=== PATIENT | female | born 1940 | race Caucasian/White ===

== ENCOUNTER → 2017-09-19 | Outpatient (CLI) | payer OTHER ==
[2017-09-19 13:02] LABS: BASO % 0.3 %; BASO ABS # 0.02 K/uL (0-0.2); COMPLETE YES; EOS % 1.2 %; HEMATOCRIT 46.1 % (37-47); IG% 0.4 %; LYMPH % 36.5 %; MEAN CELL VOLUME 97.9 fL (80-100); MEAN CORPUSCULAR HEMOGLOBIN 31.8 pg (25-34); MEAN CORPUSCULAR HGB CONC 32.5 g/dl (32-36); MEAN PLATELET VOLUME 12.1 fL (7.4-10.4); MONO % 9.7 %; NEUT % 51.9 %; PLATELET COUNT 192 K/uL (130-400); RED BLOOD COUNT 4.71 M/uL (4.2-5.4); WHITE BLOOD COUNT 7.39 K/uL (4.8-10.8)
[2017-09-19 13:21] LABS: URINE APPEARANCE CLEAR (CLEAR); URINE BILIRUBIN NEG (NEG); URINE COLOR YELLOW; URINE NITRITE NEG (NEG); URINE PH 5.5 (4.5-7.5); URINE SPECIFIC GRAVITY 1.018 (1.000-1.030); UROBILINOGEN NEG (NEG)
[2017-09-19 13:22] LABS: MANUAL MICROSCOPIC REQUIRED? NO; REVIEW REQ? NO
[2017-09-19 14:19] LABS: ALT/SGPT 18 U/L (12-78); AST/SGOT 23 U/L (15-37); BLOOD UREA NITROGEN 19 mg/dl (7-18); BUN/CREATININE RATIO 20.4 (10-20); CALCIUM 8.9 mg/dl (8.5-10.1); CARBON DIOXIDE 29 mmol/L (21-32); CHLORIDE 109 mmol/L (98-107); CREATININE 0.95 mg/dl (0.60-1.20); GLUCOSE 100 mg/dl (70-99); SODIUM 143 mmol/L (136-145)
[2017-09-19 14:24] LABS: ALB/GLOB RATIO 1.1 (0.9-2); ALKALINE PHOSPHATASE 64 U/L (45-117); CHOLESTEROL 146 mg/dl (0-200); CHOLESTEROL/HDL RATIO 1.9; HDL CHOLESTEROL 77 mg/dl; LDL CHOLESTEROL CALCULATED 50 mg/dl; TRIGLYCERIDES 94 mg/dl (0-150); VERY LOW DENSITY LIPOPROT CALC 19 mg/dl
== END | disposition home or self-care (01) ==
LOC: C.LABMFLN 08:25
PROVIDERS: ATTEND Family Medicine
DX: R31.0 Gross hematuria (principal); E78.5 Hyperlipidemia, unspecified; J45.909 Unspecified asthma, uncomplicated

== ENCOUNTER → 2017-09-23 | Outpatient (CLI) | payer OTHER ==
[~2017-09-23] MED LIST: OPTIRAY 320 IV PRN
--- NOTE | 2017-09-23 08:22 | DIAGNOSTIC IMAGING REPORT ---
ABD/PELVIS IV CONTRAST ONLY HISTORY: 77 years-old Female GROSS HEMATURIA acute gross hematuria. Initial exam. COMPARISON: None available TECHNIQUE: Multiple axial CT images of the abdomen and pelvis were obtained following the intravenous administration of 119 mL Optiray 320. A dose lowering technique was used consistent with the principals of SKY. FINDINGS: Mild centrilobular emphysematous changes. Minimal dependent atelectasis. Imaged inferior cardiac chambers are unremarkable. No pneumoperitoneum. The liver, spleen, pancreas and adrenal glands are within normal limits. Gallbladder is also unremarkable. No intrahepatic biliary ductal dilation. Low attenuating circumscribed lesion of the superior pole left kidney, 6 mm is too small to characterize however suggests cyst. Similar-appearing lesion of the superior pole right kidney is noted, also suggesting a cyst. Kidneys, ureters and urinary bladder are unremarkable. No hydronephrosis or renal calculi. Urinary bladder is partially collapsed. Uterus appears age-appropriate. No adnexal mass lesions. Moderate atherosclerotic plaquing of the abdominal aorta. Retroaortic left renal vein. No bulky adenopathy. There is no bowel obstruction or focal bowel wall thickening. Moderate to extensive colonic diverticulosis without diverticulitis. No evidence of acute appendicitis. Soft tissues are unremarkable. Bones are intact. Advanced intervertebral disc space narrowing at 2-L3 L4-L5 with multilevel moderate to severe facet arthropathy. The bones are mildly demineralized. Mild levoscoliosis of the lumbar spine. IMPRESSION: 1. No acute intra-abdominal or intrapelvic abnormality identified. No renal calculi or hydronephrosis. 2. Moderate to extensive colonic diverticulosis without diverticulitis. The above report was generated using voice recognition software. It may contain grammatical, syntax or spelling errors. Electronically signed by: Inocencio Gallardo M.D. 09/23/2017 8:21 AM Dictated Date/Time: 09/23/2017 8:04 AM
== END | disposition home or self-care (01) ==
LOC: C.CTS 07:39
PROVIDERS: ATTEND Family Medicine
DX: R31.0 Gross hematuria (principal); K57.30 Diverticulosis of large intestine without perforation or abscess without bleeding

== ENCOUNTER → 2017-11-14 | Outpatient (CLI) | payer OTHER | END | disposition home or self-care (01) | LOC: C.PATHSPEC 16:50 | PROVIDERS: ATTEND Urology | DX: K21.9 Gastro-esophageal reflux disease without esophagitis (principal); F41.9 Anxiety disorder, unspecified; M19.90 Unspecified osteoarthritis, unspecified site; R31.0 Gross hematuria; R92.8 Other abnormal and inconclusive findings on diagnostic imaging of breast ==

== ENCOUNTER → 2017-11-19 | Outpatient (CLI) | payer OTHER ==
[2017-11-19 13:08] LABS: MANUAL MICROSCOPIC REQUIRED? NO; REVIEW REQ? NO; URINE APPEARANCE TURBID (CLEAR); URINE BILIRUBIN NEG (NEG); URINE COLOR ORANGE; URINE NITRITE POS (NEG); URINE SPECIFIC GRAVITY 1.016 (1.000-1.030); UROBILINOGEN NEG (NEG)
== END | disposition home or self-care (01) ==
LOC: C.LABMFLN 08:56
PROVIDERS: ATTEND Family Medicine
DX: R30.0 Dysuria (principal)

== ENCOUNTER → 2018-07-02 | Day surgery (SDC) | payer OTHER ==
[2018-06-25 13:15] VITALS: Ht 165.1 cm; Wt 66.8 kg
[~2018-07-02] VITALS: Ht 165.1 cm; Wt 66.8 kg
[~2018-07-02] MED LIST changes: +500ML BSS 0.3ML EPI 1:1000PF IRRIG ONE; +ACETAMINOPHEN 325 MG TAB PO PRN; +ADVIN25/60 INH; +AMVISC PLUS 0.8ML SYRINGE INT OCU ONE; +ATROPINE SULFATE 0.1 MG/ML 5ML SYR IV PRN; +AcetaZOLAMIDE 250 MG TAB PO SCH; +BETAXOLOL HCL 0.25% OP SUSP PER DROP CHARGE OPL SCH; +BRIMONIDINE TART 0.2% OP SOLN PER DROP CHARGE ONE; +BSS FLUSH ONE; +CALC600T37 PO; +COEN1CAP7 PO; +ENDOCOAT 0.85ML SYRINGE INT OCU ONE; +EpHEDrine SULFATE INJ 50 MG/ML AMP IV PRN; +EpINEphrine INJ 1MG/ML AMP 1 MG/ML AMP ONE; +FENTANYL CITRATE INJ 50 MCG/1 ML 2 ML VIAL ONE; +LACTATED RINGER'S 1000ML 500 ML IV SCH; +LIDOCAINE 4% OP SOLN DROP CHARGE ONE; +LIDOCAINE HCL 1% MPF 2 ML VIAL ONE; +LORA-741 PO; +MIDAZOLAM HCL 1 MG/ML 2ML VIAL ONE; +MIX: 4ML BSS 1ML EPI 1:1000 PF INSTIL ONE; +MOXIFLOXACIN OPH SOLN PER DROP CHARGE ONE; +OCUCOAT 1 ML SOLN IO ONE; +OMEG10007 PO; -OPTIRAY 320 IV PRN; +POVIDONE-IODINE OP SOLN 30 ML BTL ONE; +PROPARACAINE 0.5% OP SOLN PER DROP CHARGE OPL SCH; +RANI150T3 PO; +SIMV20TA2 PO; +TOBRAMYCIN/DEXAMETHASONE OPH OINT PER APPLN CHARGE ONE; +TURM1CAP PO
--- NOTE | 2018-07-02 06:54 | History & Physical Bridge - SC ---
H&P Re-Evaluation Bridge Note: I have examined the patient, reviewed the History & Physical and in the interval since the performance of the History & Physical I have noted the following changes of clinical significance: No changes noted
[2018-07-02] MEDS: PHENYLEPHRINE HCL 2.5% OP SOLN PER DROP CHARGE OPL SCH ×2 (07:20→07:24)
[2018-07-02] MEDS: TROPICAMIDE 1% OP SOLN PER DROP CHARGE OPL SCH ×2 (07:22→07:25)
[2018-07-02] MEDS: CYCLOPENTOLATE HCL 1% OP SOLN PER DROP CHARGE OPL SCH ×2 (07:23→07:27)
[2018-07-02] MEDS: MOXIFLOXACIN OPH SOLN PER DROP CHARGE OPL SCH ×2 (07:24→07:34)
--- NOTE | 2018-07-02 08:15 | [facility] Operative Report ---
Operative Report Date of Service Jul 02, 2018. Operative Report 1. PREOPERATIVE DIAGNOSIS: Senile nuclear cataract, left eye. 2. POSTOPERATIVE DIAGNOSIS: Senile nuclear cataract, left eye. 3. PROCEDURE: Phacoemulsification of left cataract with posterior chamber lens implant, type [employer], model MI60L, power +16.5 diopters. ANESTHESIA: Local standby. SURGEON: Dr. Gonzales. COMPLICATIONS: None. OPERATING TIME: 10 minutes. 4. OPERATION AND FINDINGS: DESCRIPTION OF PROCEDURE: The left pupil was dilated. The anesthetic was administered using a topical technique. The left eye was prepped and draped. A speculum was placed. A clear corneal incision was formed. The chamber was filled with Amvisc Plus and Endocoat. Epinephrine solution was used. A paracentesis was placed. A capsulorrhexis was performed. The nucleus was hydrodissected. The lens was removed with phacoemulsification. Time was 3.92 seconds. The aspiration unit was used to remove the cortex. The capsule was filled with Amvisc Plus. The lens implant was folded and placed into the capsule. The incision was hydrated. The Amvisc was aspirated. The wound was secure. The chamber was deep. The pupil was round. Brimonidine, TobraDex ointment and Vigamox solution were placed. The speculum was removed. The patient was returned to the Recovery Room in stable condition. I attest to the content of the Intraoperative Record and any orders documented therein. Any exceptions are noted below. The scribe's documentation has been prepared in my presence, under my direction and personally reviewed by me in its entirety. I confirm that the note above accurately reflects all work, treatment, procedures, and medical decision making performed by me. I personally scribed for Jose Rafael Gonzales M.D. ([email or web address]) on 07/02/18 at 08:15. Electronically submitted by Allie aWrd ([email or web address]).
--- NOTE | 2018-07-02 08:17 | Discharge Instructions-SurgCtr ---
Discharge Instructions Date of Service Jul 02, 2018. Visit Reason for Visit: Cataract Left Eye Discharge Discharge Diagnosis / Problem: lens implant left eye Discharge Goals Goal(s): Improve function Activity Recommendations Activity Limitations: resume your previous activity Lifting Limitations: no more than 10 pounds Exercise/Sports Limitations: gradually increase as tolerated May Resume Sexual Activity: when tolerated Shower/Bathe: tomorrow Driving or Machine Use: resume 1 day after discharge Anesthesia . Post Anesthesia Instructions: If you have had General Anesthesia or IV Sedation: * Do not drive today. * Resume driving when surgeon permits. * Do not make important decisions or sign legal documents today. * Call surgeon for: 1. Temperature elevations greater than 101 degrees F. 2. Uncontrollable pain. 3. Excessive bleeding. 4. Persistent nausea and vomiting. 5. Medication intolerance (nausea, vomiting or rash). * For nausea and vomiting use only clear liquids such as: tea, soda, bouillon until nausea subsides, then gradually increase diet as tolerated. * If you have any concerns or questions, call your surgeon's office. If physician is unavailable and it is an emergency, call 911 or go to the nearest emergency room. . Instructions / Follow-Up Instructions / Follow-Up ACTIVITY RECOMMENDATIONS: * Light activities. * Mild irritation and blurred vision are common for the first few days. * You may walk outside, read, watch television. * Redness around the white part of the eye is common. MEDICATIONS: Resume previous medications unless instructed otherwise by your surgeon. * Take white Diamox (Acetazolamide) tablet at 1 pm today. Start all eye drops at 1 pm today: * Eye drops (today and tomorrow): Prednisone - one drop in operative eye every 3 hours while awake Ofloxacin - one drop in operative eye every 3 hours while awake SPECIAL CARE INSTRUCTIONS: * Tape plastic shield over eye to sleep at night. Call your doctor at with any concerns or problems. FOLLOW UP VISIT: Follow-up with Dr Gonzales at [facility] as scheduled. Diet Recommendations Home Diet: no limitations Procedures Procedures Performed: Left Cataract Phacoemulsification With Intraocular Lens Implant Pending Studies Studies pending at discharge: no Medical Emergencies . Who to Call and When: Medical Emergencies: If at any time you feel your situation is an emergency, please call 911 immediately. . Non-Emergent Contact Non-Emergency issues call your: Restorative Coordinator Call Non-Emergent contact if: your pain is not controlled [phone] . . "Provider Documentation" section prepared by Jose Rafael Gonzales. .
[2018-07-02 08:26] VITALS: TEMP 36.3
[2018-07-02 08:46] VITALS: BP 148/75; PULSE 52; O2SAT 94
--- NOTE | 2018-07-02 08:53 | Anesthesia Progress Nt - [facility] ---
Anesthesia Post Op Note Date & Time Jul 02, 2018 at 08:54 Vital Signs Pain Intensity: 0 Vital Signs Past 12 Hours Date Time Temp Pulse Resp B/P (MAP) Pulse Ox O2 Delivery O2 Flow Rate FiO2 07/02/18 08:46 52 18 148/75 (99) 94 Room Air 07/02/18 08:26 36.3 59 16 130/69 (89) 97 Room Air 07/02/18 07:29 36.7 61 16 180/80 (113) 96 Room Air Notes Mental Status: alert / awake / arousable, participated in evaluation Nausea / Vomiting: adequately controlled Pain: adequately controlled Airway Patency, RR, SpO2: stable & adequate BP & HR: stable & adequate Hydration State: stable & adequate Anesthetic Complications: no major complications apparent
== END | disposition home or self-care (01) ==
LOC: X.SURG 06:49
PROVIDERS: ATTEND Specialist
DX: H25.12 Age-related nuclear cataract, left eye (principal); J45.909 Unspecified asthma, uncomplicated; K21.9 Gastro-esophageal reflux disease without esophagitis; I10 Essential (primary) hypertension; I73.9 Peripheral vascular disease, unspecified; M06.9 Rheumatoid arthritis, unspecified; M19.90 Unspecified osteoarthritis, unspecified site

== ENCOUNTER 2024-03-13 14:58 | Inpatient (IN) ==
[2024-03-13 15:44] LABS: Hematocrit (blood only) 29.2 % (37.0-47.0); Hemoglobin 9.8 g/dl (12.0-16.0); Mean Corpuscular Hemoglobin 31.7 pg (25.0-34.0); Mean Corpuscular Hgb Conc 33.6 g/dL (32.0-36.0); Mean Corpuscular Volume 94.5 fL (80.0-100.0); Mean Platelet Volume 11.6 fL (9.4-12.4); Nucleated RBC # (auto) 0.04 K/uL (0.00-0.12); Nucleated RBC % (auto) 0.2 %; Platelet Count 162 K/uL (130-400); RDW Coefficient of Variation 14.9 % (11.5-14.5); RDW Standard Deviation 46.9 fL (36.4-46.3); Red Blood Count 3.09 M/uL (4.20-5.40); White Blood Count 18.77 K/ul (4.8-10.8)
[2024-03-13 16:01] LABS: Albumin Globulin Ratio 1.4 (0.9-2); Albumin Level 3.9 gm/dl (3.4-5.0); BUN Creatinine Ratio 13.5 (10-20); Bilirubin,Total 0.7 mg/dl (0.2-1.0); Calcium 8.8 mg/dl (8.6-10.3); Creatinine Clr Calc Pharmacy 42.3 ml/min; Est GFR (Non-African American) 59.5 ml/min; Globulin 2.7 gm/dl (2.5-4.0); Magnesium 1.6 mg/dl (1.7-2.4); Potassium 4.3 mmol/L (3.5-5.1); Total Protein 6.6 gm/dl (6.0-8.3)
[2024-03-13 16:10] LABS: ALC (manual) 3.38 K/uL (1.2-3.4); ANC (manual) 13.33 K/uL (1.4-6.5); Lymphocytes # (manual) 3.38 K/uL (1.2-3.4); Lymphocytes % (manual) 18 %; Metamyelocytes # (manual) 1.13 K/uL (0-0); Metamyelocytes % (manual) 6 %; Monocytes # (manual) 0.56 K/uL (0.11-0.59); Monocytes % (manual) 3 %; Myelocytes # (manual) 0.38 K/uL (0-0); Myelocytes % (manual) 2 %; Neutrophils # (manual) 13.33 K/uL (1.40-6.50); Neutrophils % (manual) 71 %; Toxic Granulation 3+
[2024-03-13 16:23] LABS: Troponin I High Sensitivity 56.7 pg/ml (0-14)
--- NOTE | 2024-03-13 16:32 | History & Physical Report ---
Date of Service March 13, 2024 Assessment & Plan (1) Acute hyponatremia: Plan: Urine Na 14, Urine osm 149 - suggestive of primary polydipsia +/- tea/toast diet Start Sodium chloride 1g PO BID Free fluid restrict 1L Repeat BMP in AM (2) Orthostatic dizziness: Plan: Per description from patient, consider stopping amlodipine if continues after sodium replacement (3) Elevated troponin I level: Plan: Down trending and no chest pain to suggest ACS - consistent with demand-ischemia (4) Small cell lung cancer: Plan: Planning on continuing chemotherapy on Saturday (5) Acid reflux disease: Plan: Continue famotidine Add pantoprazole (6) Anxiety: Plan: Continue buspirone (7) Primary polydipsia: (8) COPD (chronic obstructive pulmonary disease): Plan: Continue inhalers Plan VTE Prophylaxis - Lovenox 40mg SQ daily Diet - regular, fluid restrict 1000ml Disposition - observation to med/surg Admission and Anticipated Discharge Date Admission Date: March 13, 2024 History of Present Illness Chief Complaint: Low sodium Primary Care Provider: ARGELIA Garcia Rebecca Bryant is an 83-year-old female who presents to the ER on advice of her oncologist due to routine labs yesterday showing sodium of 122. She reports no acute symptoms. She drinks a lot of water whenever she is feeling dizzy on standing but her dizziness is not recently worse than usual. She was a little shaky this morning but again this is not unusual for her. She is eating ok but generally not enjoying eating. No dysphagia or odynophagia. No new nausea, vomiting, headache confusion or muscle cramps. After being told her sodium was low yesterday she has been drinking Pedialyte. Diagnosed with small cell lung cancer in December 2023. She was started on chemoimmunotherapy with carboplatin, etoposide and atezolizumab on February 02. Planning on continuing this on Saturday. Allergies Allergy/AdvReac Type Severity Reaction Status Date / Time tetanus toxoid, adsorbed Allergy Unknown LOCALIZED Verified 03/13/24 16:25 SWELLING, ITCHING AND REDNESS AT INJECTION SITE ibuprofen AdvReac Severe BLOODY Verified 03/13/24 16:25 URINE azithromycin AdvReac Intermediate FATIGUE Verified 03/13/24 16:34 Home Medications Medication Instructions Recorded Confirmed Type omega-3 360 [id number]-fish oil 1 cap PO DAILY 06/23/19 03/13/24 History 1,200 mg capsule,delayed release (Fish Oil) multivitamin (One-A-Day Essential 1 tab PO DAILY 07/01/19 03/13/24 History tablet) aspirin 81 mg tablet,delayed 81 mg PO DAILY #30 tabs 07/14/19 03/13/24 Rx release (Ecotrin Low Strength) coenzyme Q10 200 mg capsule 200 mg PO DAILY #90 caps 08/05/19 03/13/24 Rx cholecalciferol (vitamin D3) 50 50 mcg PO DAILY #30 caps 10/31/21 03/13/24 Rx mcg (2,000 unit) capsule cyclobenzaprine 5 mg tablet 5 mg PO TID PRN muscle spasm #30 01/31/23 03/13/24 Rx tabs amlodipine 2.5 mg tablet 2.5 mg PO DAILY #90 tabs 09/19/23 03/13/24 Rx nebulizer accessories #1 ea 10/02/23 03/03/24 Rx Oxygen Home E0424 #3 L 10/22/23 03/03/24 Rx buspirone 5 mg tablet 5 mg PO TID #270 tabs 10/29/23 03/13/24 Rx famotidine 40 mg tablet 40 mg PO DAILY #90 tabs 11/14/23 03/13/24 Rx simvastatin 20 mg tablet 20 mg PO HS #90 tabs 01/09/24 03/13/24 Rx fluticasone fur. 200 mcg-umeclid 1 inh inhalation DAILY #60 ea 02/11/24 03/13/24 Rx 62.5 mcg-vilant 25 mcg inhalat.powder (Trelegy Ellipta) albuterol sulfate 2.5 mg/3 mL 2.5 mg inhalation QID PRN sob 02/12/24 03/13/24 History (0.083 %) solution for nebulization prochlorperazine maleate 10 mg 10 mg PO QID PRN Nausea And 02/12/24 03/13/24 History tablet (Compazine) Vomiting albuterol sulfate 90 mcg/actuation 2 puff inhalation QID PRN 02/19/24 03/13/24 History aerosol inhaler Shortness Of Breath Or Wheezing psyllium husk 3.4 gram/5.4 gram 1 tbsp PO DAILY 03/13/24 03/13/24 History oral powder (Metamucil) Past Med/Surg History Medical History (Updated 03/14/24 @ 06:55 by Darrel Hay MD) Gross hematuria On home O2 2 lpm via nc History of back problems Pleural effusion, left s/p thoracentesis 01/29/24 [facility] Cough chronic Small cell lung cancer started chemo 01/2024, follows w/ Dr Mclean Dyspnea Former smoker Quit around 1991 Smoked for 20-30 years prior (does not know specifics) 1 pk/day COPD (chronic obstructive pulmonary disease) Allergic rhinitis Transient diplopia Hypertension H/O diverticulitis of colon Postmenopausal osteoporosis Hyperlipidemia Asthma uses rescue inhalers prn Arthritis Anxiety Acid reflux disease Surgical History Port-A-Cath in place (02/19/24) Insertion Access Port with Fluoroscopy(Not Applicable) - Kushal Jordan DO, FACS History of thoracentesis 01/29/24 @ [facility] Status post excision of lipoma S/P cataract extraction bilateral H/O colonoscopy Family History Father Diabetes Myocardial infarction Throat cancer Mother Hypertension Brother Lung cancer FHx: kidney cancer Daughter Brain cancer Denies family history of Ovarian cancer Prostate cancer Breast cancer Colorectal cancer Social History Smoking Status: Former smoker Tobacco Type: Cigarettes Age Started Using Tobacco: 20; Age Quit Using Tobacco: 52; packs per day: 1; Second Hand Exposure: No; Do You Dip or Chew Tobacco: No; Hx Alcohol Use: No Hx Substance Use: No Preferred Language: Tristanian Communication Ability: Effective Visual Impairment: No Limitations Hearing Ability: Normal Property Claims Manager Required: No Beliefs That Will Affect Care: None marital status: / Current Living Situation: Alone current occupational status: retired current occupation: Used to work at a [employer] How many Children do You have: 1 How many Children do You have Comment: Only child is . Other Information That Helps Us Care for You: No Feels Safe at Home: Yes Safety Concerns: Feels Safe At This Time Childhood Exposure to Second-Hand Smoke: Yes Diet: regular caffeine: Yes (coffee, tea occasionally) during the past year weight has: decreased > 10 lbs Dental Care, Regularly: Yes Physical Activity Frequency: Does not Exercise Seatbelt Use: always Sunscreen Use: No Do you think of yourself as: straight/heterosexual Gender Identity: Female Assistive Devices: Glasses, Oxygen - Continuous and Walker Assistive Devices Comment: upper partial Review of Systems Review of Systems: All systems reviewed & are unremarkable except as noted in HPI & below Couple of days of constipation /Saturday - resolved with Metamucil Physical Exam Constitutional: WD/WN, vitals as above ENMT: Mouth: oral mucous membranes not dry Respiratory: normal respiratory effort, lungs clear to auscultation Cardiovascular: RRR, no murmur, no edema Gastrointestinal (Abdomen): normal bowel sounds, soft, nontender, no hepatosplenomegaly Musculoskeletal: no cyanosis or clubbing, extremities motor strength 5/5 Skin: no rashes, warm and dry Neurologic: deep tendon reflexes 2+ bilaterally, moves all extremities and awake; not confused Psychiatric: A+Ox3, euthymic affect Results & Data Results & Data Vital Signs (Past 12 Hours) Vital Signs Temp Pulse Pulse Resp BP BP Pulse Ox 03/13/24 16:12 99 03/13/24 16:12 80 18 112/53 L 99 03/13/24 15:05 36.4 C L 94 H 24 153/64 H 94 O2 Del Method O2 Flow Rate 03/13/24 16:12 Room Air 03/13/24 16:12 Room Air 03/13/24 15:05 Nasal Cannula 2 Laboratory Results Abnormal lab results 03/13/24 03/13/24 Range/Units 15:21 16:23 WBC 18.77 H (4.8-10.8) K/ul RBC 3.09 L (4.20-5.40) M/uL Hgb 9.8 L (12.0-16.0) g/dl Hct 29.2 L (37.0-47.0) % RDW Std Deviation 46.9 H (36.4-46.3) fL RDW Coeff of Yasmin 14.9 H (11.5-14.5) % Neutrophils # (Manual) 13.33 H (1.40-6.50) K/uL Total Absolute Neuts 13.33 H (1.4-6.5) K/uL Metamyelocytes # (Man) 1.13 H (0-0) K/uL Myelocytes # (Manual) 0.38 H (0-0) K/uL Sodium 126 L (136-145) mmol/L Chloride 92 L (98-107) mmol/L Magnesium 1.6 L (1.7-2.4) mg/dl AST 41 H (13-39) U/L Troponin I High Sens 56.7 H* (0-14) pg/ml Urine Osmolality 149 L (500-800) mOsm/kg Medications Administered ER Medications Given: None ECG Rate (beats per minute): 81 Rhythm: normal sinus Findings: + other (T wave flattening lateral leads) and + nonspecific-ST abn Comparison ECG Date: from (February 12, 2024) Change: the following changes noted (T wave flattening) Code Status & VTE Plan Code Status Full VTE Prophylaxis Plan VTE Prophylaxis will be ordered: Yes PG Care Time/CCT Total # of Minutes Spent Total Time Spent with Patient: Total time spent is greater than 50% in coordination of care (as documented) at patient's floor/unit and/or counseling patient: Coding Level of Care Code 13623 INT INP/OBS CARE 3/75MIN Diagnoses Acute hyponatremia E87.1 Orthostatic dizziness R42 Elevated troponin I level R79.89 Small cell lung cancer C34.90 Acid reflux disease K21.9 Anxiety F41.9 Primary polydipsia R63.1; F54 COPD (chronic obstructive pulmonary disease) J44.9
[2024-03-13 16:56] LABS: Appearance Urine Clear (Clear); Bilirubin Urine Negative (Negative); Blood Urine Negative (Negative); Color Urine Yellow; Glucose Urine UA Negative (Negative); Ketones Urine Negative (Negative); Leukocyte Esterase Urine Negative (Negative); Nitrite Urine Negative (Negative); Protein Urine Negative (Negative); Specific Gravity Urine 1.014 (1.000-1.030); Urobilinogen Urine Negative (Negative)
--- NOTE | 2024-03-13 17:14 | XRay Report ---
SINGLE VIEW CHEST CLINICAL HISTORY: Hypoxia FINDINGS: An AP, portable, upright chest radiograph is compared to study dated 02/19/2024 and correlat ed with chest CT performed the same day 03/13/2024. A right internal jugular central venous infusion p ort is unchanged in position. The heart is enlarged. The pulmonary vasculature is noncongested. Emphy sema and chronic interstitial thickening is similar to previous. There is a left pleural effusion wit h left basilar consolidation. The right lung appears clear. No pneumothorax is seen. The skeletal str uctures are osteopenic. The bony thorax is grossly intact. IMPRESSION: 1. Cardiomegaly and emphysema without radiographic evidence of congestive failure. 2. Small left pleural effusion and left basilar consolidation. 3. Pulmonary lesions seen on today's chest CT are not well assessed by x-ray. ACT 112: Negative or not required by law. Electronically signed by: Samir Eckert M.D. 03/13/2024 5:13 PM
[2024-03-13] MEDS: PANTOprazole 40 MG TAB PO STA (17:18)
--- NOTE | 2024-03-13 18:24 | Emergency Department Note ---
Impression & Plan Acute hyponatremia, Small cell lung cancer ED Provider Note NAME: CLIFFORD REIS AGE: 83 SEX: Female INFORMANT: Patient ED PROVIDER(S): Randy Smith MD CHIEF COMPLAINT: Abnormal lab PLAN: Disposition: Admitted Outpatient prescription management: none Referral: None MEDICAL DECISION MAKING: Patient presented because of abnormal outpatient labs. She had some symptoms of weakness and nausea. She had decreased appetite. Denied excessive free water use. Sodium yesterday was 122. Repeat sodium today was 126. Still in the concerning range. Patient did have a slight elevation of her cardiac troponin but unremarkable ECG and no cardiac symptoms. Remainder of labs are unremarkable except for her white blood cell count elevation which has been there previously. Patient is afebrile. Further management in the hospital will be necessary due to the acute hyponatremia to avoid complication. Consultation was made with Dr. Darrel Hay of the [facility] service. Patient was evaluated in the ER for further management. Care/management discussed with: sports team manager Level of care consideration(s): After review of the information above and other included data, I feel the patient requires escalation of care to admission Triage Nursing notes: reviewed and agree them. Vital Signs: reviewed and remarkable for mild hypertension Additional History obtained from: none Chronic Medical/Social Conditions affecting care: Lung cancer Prior/ Outside/ External records reviewed: Outpatient labs from yesterday reviewed. Sodium was 122. Differential Diagnosis: Infection, dehydration, metabolic abnormality, hypo/hyperglycemia, electrolyte disturbance, anemia, hypoxia, cardiac sources, intracerebral event, toxicologic, neurologic, as well as other pathologies. Diagnostics, independently interpreted by me: ECG: Twelve-lead ECG was normal sinus rhythm at [address] No [address] elevation. Cardiac Monitoring: Cardiac monitoring ordered by me: The patient was placed on continuous cardiac monitoring and observed. It revealed a normal sinus rhythm at 80 beats per minute without ectopy or evidence of dysrhythmia. Medical decision rules: none Imaging studies: Chest x-ray reveals mild cardiomegaly and left pleural effusion. No infiltrate or pneumothorax. HPI: 83 year old Female arrives for evaluation of abnormal labs.. Patient is undergoing chemotherapy for lung cancer. She had labs done yesterday and her sodium was found to be 122. Patient was directed to the ER for further management. She does note having some intermittent nausea and increasing weakness. She denies excessive free water use. Patient states that her appetite has been off but she has been consuming Pedialyte. Pt denies LOC, headache, fevers, chills, diaphoresis, visual changes, neck pain, chest pain, new lbreathing difficulties, new vomiting, abdominal pain, back pain, melena, hematochezia, urinary symptoms, numbness, lymphadenopathy, rash, or other complaints. PAST MEDICAL HISTORY: See Below, lung cancer PAST SURG[facility] HISTORY: See Below, [facility] SOCIAL HISTORY: See Below, former smoker HOME MEDICATIONS: See Below ALLERGIES: See Below VITALS: See Below PHYSICAL EXAMINATION: GENERAL: Awake, alert, tok-bwndozhpddf-vzpxgeydh, in no distress HENT: Normocephalic, atraumatic. Oropharynx unremarkable. EYES: Normal conjunctiva. Sclera non-icteric. NECK: Inspection normal. Non-tender. Supple. No nuchal rigidity. FROM. No masses. RESPIRATORY: Clear to auscultation. No wheezes. No rales. Normal respiratory effort. CARDIAC: Normal rate. Normal rhythm. No murmurs. No rubs. Extremities warm and well perfused. Pulses equal. No JVD. GI: Soft, non-distended. No tenderness to palpation. No rebound or guarding. No masses. RECTAL: Deferred. MUSCULOSKELETAL: Generalized muscular atrophy otherwise atraumatic. Chest examination reveals no tenderness. The back is symmetrical on inspection without obvious abnormality. There is no CVA tenderness to palpation. No joint edema. LOWER EXTREMITIES: Calves are equal size bilaterally and non-tender. No edema. Chronic venous discoloration. NEURO: Normal sensorium. No sensory or motor deficits noted. SKIN: No rash or jaundice noted. 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, follows w/ Dr Mclean Dyspnea Former smoker Quit around 1991 Smoked for 20-30 years prior (does not know specifics) 1 pk/day COPD (chronic obstructive pulmonary disease) Allergic rhinitis Transient diplopia Hypertension H/O diverticulitis of colon Postmenopausal osteoporosis Hyperlipidemia Asthma uses rescue inhalers prn Arthritis Anxiety Acid reflux disease Surgical History (Updated 03/03/24 @ 09:55 by Kushal Jordan DO, FACS) Port-A-Cath in place (02/19/24) Insertion Access Port with Fluoroscopy(Not Applicable) - Kushal Jordan DO, FACS History of thoracentesis 01/29/24 @ [facility] Status post excision of lipoma S/P cataract extraction bilateral H/O colonoscopy Family History Father Diabetes Myocardial infarction Throat cancer Mother Hypertension Brother Lung cancer FHx: kidney cancer Daughter Brain cancer Denies family history of Ovarian cancer Prostate cancer Breast cancer Colorectal cancer Social History Smoking Status: Former smoker Tobacco Type: Cigarettes Age Started Using Tobacco: 20; Age Quit Using Tobacco: 52; packs per day: 1; Second Hand Exposure: Yes (in the past); Do You Dip or Chew Tobacco: No; Hx Alcohol Use: No Hx Substance Use: No Preferred Language: [place] Communication Ability: Effective Visual Impairment: No Limitations Hearing Ability: Normal Film Archivist Required: No Beliefs That Will Affect Care: None marital status: / Current Living Situation: Alone current occupational status: retired current occupation: Used to work at a [employer] How many Children do You have: 1 How many Children do You have Comment: Only child is . Feels Safe at Home: Yes Childhood Exposure to Second-Hand Smoke: Yes Diet: regular caffeine: Yes (coffee, tea occasionally) during the past year weight has: decreased > 10 lbs Dental Care, Regularly: Yes Physical Activity Frequency: Does not Exercise Seatbelt Use: always Sunscreen Use: No Do you think of yourself as: straight/heterosexual Gender Identity: Female Assistive Devices: Denture - Upper, Nebulizer, Oxygen - Continuous and Walker Allergies Allergies Allergy/AdvReac Type Severity Reaction Status Date / Time tetanus toxoid, adsorbed Allergy Unknown LOCALIZED Verified 03/13/24 16:25 SWELLING, ITCHING AND REDNESS AT INJECTION SITE ibuprofen AdvReac Severe BLOODY Verified 03/13/24 16:25 URINE azithromycin AdvReac Intermediate FATIGUE Verified 03/13/24 16:34 Home Meds Home Medications Medication Instructions Recorded Confirmed omega-3 360 jz-amv-zgj-fish oil 1 cap PO DAILY 06/23/19 03/13/24 1,200 mg capsule,delayed release (Fish Oil) multivitamin (One-A-Day Essential 1 tab PO DAILY 07/01/19 03/13/24 tablet) albuterol sulfate 2.5 mg/3 mL 2.5 mg inhalation QID PRN sob 02/12/24 03/13/24 (0.083 %) solution for nebulization prochlorperazine maleate 10 mg 10 mg PO QID PRN Nausea And 02/12/24 03/13/24 tablet (Compazine) Vomiting albuterol sulfate 90 mcg/actuation 2 puff inhalation QID PRN 02/19/24 03/13/24 aerosol inhaler Shortness Of Breath Or Wheezing psyllium husk 3.4 gram/5.4 gram 1 tbsp PO DAILY 03/13/24 03/13/24 oral powder (Metamucil) Previous Rx's Medication Instructions Recorded aspirin 81 mg tablet,delayed 81 mg PO DAILY #30 tabs 07/14/19 release (Ecotrin Low Strength) coenzyme Q10 200 mg capsule 200 mg PO DAILY #90 caps 08/05/19 cholecalciferol (vitamin D3) 50 50 mcg PO DAILY #30 caps 10/31/21 mcg (2,000 unit) capsule cyclobenzaprine 5 mg tablet 5 mg PO TID PRN muscle spasm #30 01/31/23 tabs amlodipine 2.5 mg tablet 2.5 mg PO DAILY #90 tabs 09/19/23 nebulizer accessories #1 ea 10/02/23 Oxygen Home E0424 #3 L 10/22/23 buspirone 5 mg tablet 5 mg PO TID #270 tabs 10/29/23 famotidine 40 mg tablet 40 mg PO DAILY #90 tabs 11/14/23 simvastatin 20 mg tablet 20 mg PO HS #90 tabs 01/09/24 fluticasone fur. 200 mcg-umeclid 1 inh inhalation DAILY #60 ea 02/11/24 62.5 mcg-vilant 25 mcg inhalat.powder (Trelegy Ellipta) Results & Data (ED) Vital Signs Vital Signs - 24 hr 03/13/24 15:05 03/13/24 16:12 03/13/24 16:12 Temperature 36.4 C L Temperature Source Temporal Artery Scan Pulse Rate 94 H Pulse Rate [Finger] 80 Respiratory Rate 24 18 Respiratory Effort / Characteristics Non-Labored Spontaneous Non-Labored Spontaneous Respiratory Depth Normal Normal Respiratory Pattern Regular Blood Pressure 153/64 H Blood Pressure [Right Arm] 112/53 L Blood Pressure Mean 93 Blood Pressure Mean [Right Arm] 72 Blood Pressure Position [Right Arm] Lying Pulse Oximetry 94 99 99 Oxygen Delivery Method Nasal Cannula Room Air Room Air Oxygen Flow Rate 2 Sepsis Recent Fever Within 48 Hours No Sepsis New/Unexplained Change in Mental Status N/A Sepsis Action Taken by Nursing No Action Required Laboratory Data 03/13/24 15:21 03/13/24 15:21 Lab Results 03/13/24 03/13/24 Range/Units 15:21 16:23 WBC 18.77 H (4.8-10.8) K/ul RBC 3.09 L (4.20-5.40) M/uL Hgb 9.8 L (12.0-16.0) g/dl Hct 29.2 L (37.0-47.0) % MCV 94.5 (80.0-100.0) fL MCH 31.7 (25.0-34.0) pg MCHC 33.6 (32.0-36.0) g/dL RDW Std Deviation 46.9 H (36.4-46.3) fL RDW Coeff of Yasmin 14.9 H (11.5-14.5) % Plt Count 162 (130-400) K/uL MPV 11.6 (9.4-12.4) fL Absolute Nucleated RBC 0.04 (0.00-0.12) K/uL Nucleated RBC % (auto) 0.2 % Neutrophils % (Manual) 71 % Lymphocytes % (Manual) 18 % Monocytes % (Manual) 3 % Metamyelocytes % (Man) 6 % Myelocytes % (Man) 2 % Neutrophils # (Manual) 13.33 H (1.40-6.50) K/uL Total Absolute Neuts 13.33 H (1.4-6.5) K/uL Lymphocytes # (Manual) 3.38 (1.2-3.4) K/uL Total Abs Lymphocytes 3.38 (1.2-3.4) K/uL Monocytes # (Manual) 0.56 (0.11-0.59) K/uL Metamyelocytes # (Man) 1.13 H (0-0) K/uL Myelocytes # (Manual) 0.38 H (0-0) K/uL Toxic Granulation 3+ Sodium 126 L (136-145) mmol/L Potassium 4.3 (3.5-5.1) mmol/L Chloride 92 L (98-107) mmol/L Carbon Dioxide 25 (21-32) mmol/L Anion Gap 9 (3-11) BUN 12 (6-23) mg/dl Creatinine 0.89 (0.6-1.2) mg/dl Est Cr Clr Drug Dosing 42.3 ml/min Est GFR ( Amer) 69.0 ml/min Est GFR (Non-Af Amer) 59.5 ml/min BUN/Creatinine Ratio 13.5 (10-20) Glucose 91 (70-99(Fasting)) mg/dl Calcium 8.8 (8.6-10.3) mg/dl Magnesium 1.6 L (1.7-2.4) mg/dl Total Bilirubin 0.7 (0.2-1.0) mg/dl AST 41 H (13-39) U/L ALT 16 (7-52) U/L Alkaline Phosphatase 76 (34-104) U/L Troponin I High Sens 56.7 H* (0-14) pg/ml Total Protein 6.6 (6.0-8.3) gm/dl Albumin 3.9 (3.4-5.0) gm/dl Globulin 2.7 (2.5-4.0) gm/dl Albumin/Globulin Ratio 1.4 (0.9-2) Urine Color Yellow Urine Appearance Clear (Clear) Urine pH 7.0 (4.5-7.5) Ur Specific Noti 1.014 (1.000-1.030) Urine Protein Negative (Negative) Urine Glucose (UA) Negative (Negative) Urine Ketones Negative (Negative) Urine Blood Negative (Negative) Urine Nitrite Negative (Negative) Urine Bilirubin Negative (Negative) Urine Urobilinogen Negative (Negative) Ur Leukocyte Esterase Negative (Negative) Urine Osmolality 149 L (500-800) mOsm/kg Ur Random Sodium 14 mmol/L Administered Medications Discontinued Medications Pantoprazole Sodium (Pantoprazole 40 Mg Tab) 40 mg PO NOW STA Stop: 03/13/24 16:56 Last Admin: 03/13/24 17:18 Dose: 40 mg Documented By: SKB Sodium Chloride (Sodium Chloride 1 Gm Tablet) 1 gm PO ONE STA Stop: 03/13/24 17:38 Last Admin: 03/13/24 19:09 Dose: 1 gm Documented By: [facility] Imaging Data Radiologist's Impression: Chest X-Ray 03/13/24 16:57 SINGLE VIEW CHEST CLINICAL HISTORY: Hypoxia FINDINGS: An AP, portable, upright chest radiograph is compared to study dated 02/19/2024 and correlated with chest CT performed the same day 03/13/2024. A right internal jugular central venous infusion port is unchanged in position. The heart is enlarged. The pulmonary vasculature is noncongested. Emphysema and chronic interstitial thickening is similar to previous. There is a left pleural effusion with left basilar consolidation. The right lung appears clear. No pneumothorax is seen. The skeletal structures are osteopenic. The bony thorax is grossly intact. IMPRESSION: 1. Cardiomegaly and emphysema without radiographic evidence of congestive failure. 2. Small left pleural effusion and left basilar consolidation. 3. Pulmonary lesions seen on today's chest CT are not well assessed by x-ray. ACT 112: Negative or not required by law. Electronically signed by: Samir Eckert M.D. 03/13/2024 5:13 PM Discharge Plan Visit Data Chief Complaint: Referred by Doctor Stated Complaint: very low sodium, ref by doc ED Provider: Randy Smith Discharge Problem: Acute hyponatremia, Small cell lung cancer Patient Disposition: Admitted As Inpatient Discharge Instructions Interventions: ED Discharge Assessment Last Done: 03/13/24 17:39
[2024-03-13] MEDS ORDERED: PROCHLORPERAZINE MALEATE 10 MG TAB PO PRN (19:06)
[2024-03-13] MEDS ORDERED: ACETAMINOPHEN 325 MG TAB PO PRN (19:06)
[2024-03-13] MEDS: SODIUM CHLORIDE 1 GM TABLET PO STA (19:09)
[2024-03-13] MEDS: MAGNESIUM SULFATE / D5W 1 GM/100 ML BAG IV SCH (20:05)
[2024-03-13] MEDS: SODIUM CHLORIDE 1 GM TABLET PO SCH (21:39)
[2024-03-13] MEDS: SIMVASTATIN 20 MG TAB PO SCH (21:39)
[2024-03-13] MEDS: busPIRone 5 MG TAB PO SCH (21:39)
[2024-03-13] MEDS: ENOXAPARIN INJ 40 MG/0.4 ML SYR SQ SCH (21:39)
--- NOTE | 2024-03-14 06:06 | Electrocardiogram Report ---
Test Reason : Blood Pressure : / mmHG Vent. Rate : 081 BPM Atrial Rate : 081 BPM P-R Int : 144 ms QRS Dur : 080 ms QT Int : 328 ms P-R-T Axes : 059 003 073 degrees QTc Int : 381 ms Normal sinus rhythm Nonspecific ST and T wave abnormality Abnormal ECG When compared with ECG of 12-FEB-2024 10:07, Left anterior fascicular block is no longer Present Criteria for Septal infarct are no longer Present Nonspecific T wave abnormality, worse in Lateral leads Confirmed by Alexander Cordova ([id number]) on 03/14/2024 6:06:19 AM Referred By: Confirmed By:Jorge Cordova
[2024-03-14 07:20] LABS: Hematocrit (blood only) 23.8 % (37.0-47.0); Hemoglobin 8.4 g/dl (12.0-16.0); Mean Corpuscular Hemoglobin 32.2 pg (25.0-34.0); Mean Corpuscular Hgb Conc 35.3 g/dL (32.0-36.0); Mean Corpuscular Volume 91.2 fL (80.0-100.0); Mean Platelet Volume 11.3 fL (9.4-12.4); Nucleated RBC # (auto) 0.03 K/uL (0.00-0.12); Nucleated RBC % (auto) 0.2 %; Platelet Count 186 K/uL (130-400); RDW Coefficient of Variation 14.9 % (11.5-14.5); RDW Standard Deviation 44.6 fL (36.4-46.3); Red Blood Count 2.61 M/uL (4.20-5.40); White Blood Count 15.13 K/ul (4.8-10.8)
[2024-03-14 07:38] LABS: Calcium 8.1 mg/dl (8.6-10.3); Creatinine Clr Calc Pharmacy 45.8 ml/min; Est GFR (African American) 76.2 ml/min; Est GFR (Non-African American) 65.7 ml/min
[2024-03-14 07:43] LABS: Basophils # (auto) 0.03 K/uL (0.00-0.20); Basophils % (auto) 0.2 %; Immature Granulocytes # (auto) 1.18 K/uL (0.01-0.20); Immature Granulocytes % (auto) 7.8 %; Lymphocytes # (auto) 1.86 K/uL (1.20-3.40); Lymphocytes % (auto) 12.3 %; Monocytes % (auto) 15.2 %; Neutrophils # (auto) 9.76 K/uL (1.40-6.50); Neutrophils % (auto) 64.5 %; Polychromasia 1+
[2024-03-14] MEDS: CHOLECALCIFEROL 25 MCG (1000 UNITS) TAB PO SCH (08:38)
[2024-03-14] MEDS: ASPIRIN 81 MG ECTAB PO SCH (08:38)
[2024-03-14] MEDS: FAMOTIDINE 40 MG TABLET PO SCH (08:38)
[2024-03-14] MEDS: amLODIPine BESYLATE 5 MG TAB PO SCH (08:38)
[2024-03-14] MEDS: FLUTICASONE FUROATE 200MCG 14 PUFFS/INHALER INH SCH (08:39)
[2024-03-14] MEDS: UMECLIDINIUM/VILANTEROL 62.5/25MCG 7 PUFFS/INHALER INH SCH (08:39)
[2024-03-14] MEDS: PSYLLIUM or GUAR GUM FIBER 4GM PACKET PO SCH (08:39)
[2024-03-14] MEDS: PANTOprazole 40 MG TAB PO SCH (08:39)
[2024-03-14] MEDS ORDERED: NON-FORMULARY MEDICATION (Fluticasone-Umeclidin-Vilanter [Trelegy Ellipta] 200-62.5-25 mcg INH SCH (09:00)
--- NOTE | 2024-03-14 21:15 | Hospitalist Progress Note ---
Date of Service March 14, 2024 Assessment & Plan (1) Acute hyponatremia: Plan: Urine Na 14, Urine osm 149 - suggestive of primary polydipsia +/- tea/toast diet Start Sodium chloride 1g PO BID Free fluid restrict 1L Repeat BMP is improving 129 will continue above plan (2) Orthostatic dizziness: Plan: Per description from patient, consider stopping amlodipine if continues after sodium replacement (3) Elevated troponin I level: Plan: Down trending and no chest pain to suggest ACS - consistent with demand-ischemia (4) Small cell lung cancer: Plan: Planning on continuing chemotherapy on Saturday (5) Acid reflux disease: Plan: Continue famotidine Add pantoprazole (6) Anxiety: Plan: Continue buspirone (7) Primary polydipsia: (8) COPD (chronic obstructive pulmonary disease): Plan: Continue inhalers Plan VTE Prophylaxis - Lovenox 40mg SQ daily Diet - regular, fluid restrict 1000ml Admission and Anticipated Discharge Date Admission Date: March 13, 2024 Subjective Patient reports no new symptoms. Review of Systems Review of Systems: All systems reviewed & are unremarkable except as noted in HPI & below Physical Exam Constitutional: WD/WN, vitals as above ENMT: Mouth: oral mucous membranes not dry Respiratory: normal respiratory effort, lungs clear to auscultation Cardiovascular: RRR, no murmur, no edema Gastrointestinal (Abdomen): normal bowel sounds, soft, nontender, no hepatosplenomegaly Musculoskeletal: no cyanosis or clubbing, extremities motor strength 5/5 Skin: no rashes, warm and dry Neurologic: deep tendon reflexes 2+ bilaterally, moves all extremities and awake; not confused Psychiatric: A+Ox3, euthymic affect Results & Data Results & Data Vital Signs (Past 12 Hours) Vital Signs Temp Pulse Resp BP Pulse Ox O2 Del Method 03/14/24 14:47 36.7 C 78 16 122/67 94 Room Air PG Care Time/CCT Total # of Minutes Spent Total Time Spent with Patient: Total time spent is greater than 50% in coordination of care (as documented) at patient's floor/unit and/or counseling patient: Coding Level of Care Code 83707 SUB INP/OBS CARE 2/35MIN Diagnoses Acute hyponatremia E87.1 Orthostatic dizziness R42 Elevated troponin I level R79.89 Small cell lung cancer C34.90 Acid reflux disease K21.9 Anxiety F41.9 Primary polydipsia R63.1; F54 COPD (chronic obstructive pulmonary disease) J44.9
[2024-03-15 09:40] LABS: BUN Creatinine Ratio 16.5 (10-20); Calcium 8.3 mg/dl (8.6-10.3); Creatinine Clr Calc Pharmacy 47.5 ml/min; Est GFR (African American) 79.7 ml/min; Est GFR (Non-African American) 68.7 ml/min; Potassium 3.8 mmol/L (3.5-5.1)
[2024-03-15 10:14] LABS: Hemoglobin 8.8 g/dl (12.0-16.0); Mean Corpuscular Hemoglobin 31.4 pg (25.0-34.0); Mean Corpuscular Hgb Conc 32.6 g/dL (32.0-36.0); Mean Corpuscular Volume 96.4 fL (80.0-100.0); Platelet Count 209 K/uL (130-400); RDW Coefficient of Variation 15.8 % (11.5-14.5); RDW Standard Deviation 48.6 fL (36.4-46.3); White Blood Count 9.83 K/ul (4.8-10.8)
--- NOTE | 2024-03-15 11:09 | Discharge Summary ---
Date of Service March 15, 2024 Admission HPI Per Admitting Provider Rebecca Bryant is an 83-year-old female who presents to the ER on advice of her oncologist due to routine labs yesterday showing sodium of 122. She reports no acute symptoms. She drinks a lot of water whenever she is feeling dizzy on standing but her dizziness is not recently worse than usual. She was a little shaky this morning but again this is not unusual for her. She is eating ok but generally not enjoying eating. No dysphagia or odynophagia. No new nausea, vomiting, headache confusion or muscle cramps. After being told her sodium was low yesterday she has been drinking Pedialyte. Diagnosed with small cell lung cancer in December 2023. She was started on chemoimmunotherapy with carboplatin, etoposide and atezolizumab on February 02. Planning on continuing this on Saturday. Principal Diagnosis hypotonic hyponatremia Discharge Exam Constitutional WD/WN, vitals as above ENMT Mouth: oral mucous membranes not dry Respiratory normal respiratory effort, lungs clear to auscultation Cardiovascular RRR, no murmur, no edema Gastrointestinal (Abdomen) normal bowel sounds, soft, nontender, no hepatosplenomegaly Musculoskeletal no cyanosis or clubbing, extremities motor strength 5/5 Skin no rashes, warm and dry Neurologic deep tendon reflexes 2+ bilaterally, moves all extremities and awake; not conf used Psychiatric A+Ox3, euthymic affect Discharge Data Allergies Allergy/AdvReac Type Severity Reaction Status Date / Time tetanus toxoid, adsorbed Allergy Unknown LOCALIZED Verified 03/13/24 16:25 SWELLING, ITCHING AND REDNESS AT INJECTION SITE ibuprofen AdvReac Severe BLOODY Verified 03/13/24 16:25 URINE azithromycin AdvReac Intermediate FATIGUE Verified 03/13/24 16:34 Consultations 03/13/24 16:35 ED Decision to Admit Stat Hospital Course (1) Acute hyponatremia: Urine Na 14, Urine osm 149 - suggestive of primary polydipsia +/- tea/toast diet Start Sodium chloride 1g PO BID Free fluid restrict 1L Repeat BMP is improving 129 On day of discharge improved to 134. Reviewed her blood work work and urine tests as well as symptoms. This was likely hypotonic hyponatremia. Ordered a liter of IVF prior to discharge. Recommend that she stay hydrated and if she feels symptomatic from being too dry, she should replenish with Pedialyte and not just water. I recommend she recheck her sodium level in about 1 week. (2) Orthostatic dizziness: Per description from patient, consider stopping amlodipine ifshe becomes dizzy at home. will defer to PCP. (3) Elevated troponin I level: Down trending and no chest pain to suggest ACS - consistent with demand-ischemia (4) Small cell lung cancer: Planning on continuing chemotherapy on Saturday (5) Acid reflux disease: Continue famotidine Add pantoprazole (6) Anxiety: Continue buspirone (7) Primary polydipsia: (8) COPD (chronic obstructive pulmonary disease): Continue inhalers Total Time Total Time Spent Total Time Spent (In Minutes): 32 Discharge Plan Discharge Items Patient Disposition: Home - Self-Care Reason For Visit: ACUTE HYPONATREMIA Discharge Diagnosis: acute hyponatremia Activity: Resume your previous activity Non-emergency contact: Primary Care Provider Call non-emergency contact if: you have any medication questions Follow-up/Referrals: Sophy Wallace CRNP [Primary Care Provider] - 03/23/24 10:00 am Diet: Regular Ambulatory Orders: Basic Metabolic Panel (Routine) Timeframe: 1 Week Location: Determined by Patient Ordered By: Marcus Gomez Attending Provider Instructions: You were found to have a low sodium level. Thankfully you responded to the treatment of salt tablets and fluid restriction. We will recommend you resume your regular home medications. We will recommend you followup with your PCP in 1-2 weeks. Recommend you check your sodium level in about 1 week. Pending Studies at Discharge: No Stand-Alone Forms: [facility], Smoking Cessation Medications and DC Order Prescriptions: Continued aspirin [Ecotrin Low Strength] 81 mg tablet,delayed release (DR/EC) 81 mg PO DAILY Qty: 30 2RF amlodipine 2.5 mg tablet 2.5 mg PO DAILY Qty: 90 3RF buspirone 5 mg tablet 5 mg PO TID Qty: 270 3RF famotidine 40 mg tablet 40 mg PO DAILY Qty: 90 3RF simvastatin 20 mg tablet 20 mg PO HS Qty: 90 3RF Trelegy Ellipta 200-62.5-25 mcg blister with device 1 inh inhalation DAILY Qty: 60 3RF omega 9-ivr-wfz-fish oil [Fish Oil] 360-1,200 mg capsule,delayed release(DR/EC) 1 cap PO DAILY multivitamin [One-A-Day Essential] tablet 1 tab PO DAILY cholecalciferol (vitamin D3) 50 mcg (2,000 unit) capsule 50 mcg PO DAILY Qty: 30 0RF (DME) nebulizer accessories Kit See Rx Instructions .Route Qty: 1 0RF Rx Instructions: As directed (DME) Oxygen Home E0424 Liters Per Minute See Rx Instructions .ROUTE .MEDSUPPLY Qty: 3 0RF Rx Instructions: 3 L/min via nasal cannula at all times. Assess for portability. Length of need 99 years. coenzyme Q10 200 mg capsule 200 mg PO DAILY Qty: 90 3RF cyclobenzaprine 5 mg tablet 5 mg PO TID PRN (Reason: muscle spasm) Qty: 30 0RF albuterol sulfate 2.5 mg /3 mL (0.083 %) solution for nebulization 2.5 mg inhalation QID PRN (Reason: sob) prochlorperazine maleate [Compazine] 10 mg tablet 10 mg PO QID PRN (Reason: Nausea And Vomiting) albuterol sulfate 90 mcg/actuation Hfa Aerosol Inhaler 2 puff INHALATION QID PRN (Reason: Shortness Of Breath Or Wheezing) Metamucil 3.4 gram/5.4 gram Powder 1 tbsp PO DAILY Rx Instructions: mix into at least 8 oz of water or juice before administering Discharge Orders: Discharge Order (Routine); Ordered 03/15/24 Ordered By: Marcus Hand Admission Data Admit Date/Time: 03/14/24 21:37 Attending Provider: Marcus Hand Admit Provider: aDrrel Hay Primary Care Provider: Sophy Wallace Other Providers: Darrel Hay Other Interventions: Discharge Summary Assessment (RN) Last Done: 03/15/24 14:52 Coding Level of Care Code 82559 INP/OBS DISCH >30 MIN Diagnoses Acute hyponatremia E87.1 Orthostatic dizziness R42 Elevated troponin I level R79.89 Small cell lung cancer C34.90 Acid reflux disease K21.9 Anxiety F41.9 Primary polydipsia R63.1; F54 COPD (chronic obstructive pulmonary disease) J44.9
[2024-03-15] MEDS: SODIUM CHLORIDE 0.9% 1,000 ML IV SCH (11:30)
== END 2024-03-15 15:32 | disposition home or self-care (01) | DRG 641 ==
LOC: 3W 14:58 → ED 14:58 → SUATTDRO 16:27 → 3W 18:54

== ENCOUNTER 2024-03-30 11:21 | Observation (INO) ==
--- NOTE | 2024-03-30 11:26 | ED Triage Note ---
Date of Service March 30, 2024 Provider in Triage Author: Jennifer Cox History of Present Illness This patient was briefly evaluated while in triage. An abbreviated physical exam was performed. This patient is a 83-year-old Female who presents to the ED for evaluation of two episodes of tachycardia and tachypnea, currently being treated for small cell lung ca. Physical Exam CONSTITUTIONAL: in no acute pain or distress, resting comfortably SKIN: pink, warm, dry CARDIAC: regular rate and rhythm RESPIRATORY: in no respiratory distress, lungs clear to auscultation ABDOMEN: no TTP MSK: 5/5 strength throughout NEURO: no neuro deficits, alert and oriented x 3 Initial orders for labs and / or imaging were placed and patient was placed in the waiting area until a bed is available. Please see further documentation for the full ED course.
[2024-03-30 12:30] LABS: Alanine Aminotransferase 6 U/L (7-52); Albumin Globulin Ratio 1.4 (0.9-2); Albumin Level 3.7 gm/dl (3.4-5.0); Alkaline Phosphatase 56 U/L (34-104); Anion Gap 8 (3-11); Aspartate Aminotransferase 19 U/L (13-39); BUN Creatinine Ratio 14.5 (10-20); Bilirubin,Total 0.6 mg/dl (0.2-1.0); Blood Urea Nitrogen 12 mg/dl (6-23); Calcium 8.7 mg/dl (8.6-10.3); Carbon Dioxide 26 mmol/L (21-32); Chloride 93 mmol/L (98-107); Est GFR (African American) 75.1 ml/min; Est GFR (Non-African American) 64.8 ml/min; Globulin 2.6 gm/dl (2.5-4.0); Glucose 108 mg/dl (70-99(Fasting)); Sodium 127 mmol/L (136-145); Total Protein 6.3 gm/dl (6.0-8.3)
--- NOTE | 2024-03-30 12:36 | XRay Report ---
XR chest 1V not portable CLINICAL HISTORY: Dyspnea TECHNIQUE: Single frontal radiograph of the chest was obtained. Comparison: Comparison is made to chest radiograph 03/13/2024 FINDINGS: A port catheter is seen. The cardiomediastinal silhouette is normal. The lungs are clear. Small left pleural effusion is possibly slightly increased in conspicuity. IMPRESSION: Possible slight increase in conspicuity of the left pleural effusion. ACT 112: Negative or not required by law. Electronically signed by: Román Ghotra M.D. 03/30/2024 12:33 PM
[2024-03-30 12:37] LABS: Troponin I High Sensitivity 8.7 pg/ml (0-14)
--- NOTE | 2024-03-30 12:43 | Emergency Department Note ---
Impression & Plan Symptomatic anemia, Chest pain, Shortness of breath, Thrombocytopenia, Pleural effusion, Acute hyponatremia ED Provider Note NAME: CLIFFORD REIS AGE: 83 SEX: F : 1940 ARRIVES VIA: Walk-In INFORMANT: Patient ED PROVIDER(S): Boy Jha DO CHIEF COMPLAINT: heart racing HPI: Patient is an 83-year-old female who presents to the ER for palpitations/feeling her heart race. This occurred once on and again on Saturday. It also occurred earlier this morning and lasted for under a minute. She notes she gets short of breath with this. She also notes that she has been having some worsening shortness of breath over the past month which has been unchanged for that time. No cough or congestion. No chest pain or belly pain. No nausea, vomiting, or diarrhea. No dysuria, urgency, or frequency. No other exacerbating or remitting factors. She notes that she chronically wears 2 L nasal cannula. ADDITIONAL HISTORY OBTAINED: Per HPI Chronic Medical/Social Conditions Affecting Care: Per HPI PAST MEDICAL HISTORY:See Below PAST SURGICAL HISTORY:See Below FAMILY HISTORY:See Below SOCIAL HISTORY:See Below HOME MEDICATIONS:See Below ALLERGIES:See Below VITALS:See Below PHYSICAL EXAMINATION: GENERAL: Sitting up in bed, alert, well appearing, well nourished, no distress, non-toxic EYE EXAM: normal conjunctiva. PERRL and EOM's grossly intact. OROPHARYNX: no exudate, no erythema, lips, buccal mucosa, and tongue normal and mucous membranes are moist NECK: supple, no nuchal rigidity, no adenopathy, non-tender Port located on right upper chest wall LUNGS: Clear to auscultation. Normal chest wall mechanics HEART: no murmurs, S1 normal and S2 normal ABDOMEN: abdomen soft, non-tender, normo-active bowel sounds, no masses, no rebound or guarding. UPPER EXTREMITIES: upper extremities are grossly normal. LOWER EXTREMITIES: No pitting edema. NEURO EXAM: Normal sensorium, cranial nerves II-XII grossly intact, normal speech, no gross weakness of arms, no gross weakness of legs. No drift. Finger to nose intact. Gross sensation intact. MEDICAL DECISION MAKING: Patient is an 83-year-old female with small cell cancer of the lung who presents the ER for shortness of breath and feeling her heart race. IV was established and was obtained. Labs show no significant leukocytosis. Mild anemia at 6.2 down from 8. Platelets are significantly low at 26 down from a normal range previously. BMP with a hyponatremia 127. Mag was low at 1.4. LFTs bilirubin was unremarkable. Troponin negative. UA was clean. Patient was typed and crossed. Initially ordered irradiated blood after discussion with Dr. Harding switch to regular PRBCs. I did notify the lab and spoke with blood bank. They noted they would change the order as I was unable to. Chest x-ray with mild pleural effusion. Patient was updated bedside and discussed with the hospitalist for further evaluation management treatment for her symptomatic anemia. Consults/Care Managements Discussions: Per [facility] Triage Nursing notes reviewed. Limited review of prior medical records performed Vital Signs: reviewed and remarkable for no significant abnormalities Differential diagnosis: Differential diagnoses includes but is not limited to pneumonia, bronchitis, COPD/Asthma exacerbation, pneumothorax, pulmonary embolism, congestive heart failure, acute coronary syndrome ER treatment provided: See below Diagnostics interpreted by me include EKG and cardiac monitoring as listed below: -Cardiac Monitoring: An order was placed for continuous cardiac monitoring. The monitor shows a rate of 70 with sinus rhythm. -ECG: Sinus rhythm rate 72 Normal axis No PVCs QTc 398 -Laboratory studies:Interpreted by me as stated above in MDM and shown below. Imaging studies: Xrays: As interpreted by me: Portable AP upright 1 view of the chest shows mild pleural effusion on the CTs show: none Procedures:none Critical Care: I have personally spent 34 minutes of critical care time in the direct management of this patient. This includes bedside care, interpretation of diagnostic studies, and testing, discussion with consultants, patient, and family members, and other required patient management activities. This 34 minutes is in excess of all separately billable procedures. Past Med/Surg History Medical History Gross hematuria On home O2 2 lpm via nc History of back problems Pleural effusion, left s/p thoracentesis 01/29/24 [facility] Cough chronic Small cell lung cancer started chemo 01/2024, follows w/ Dr Mclean Dyspnea Former smoker Quit around 1991 Smoked for 20-30 years prior (does not know specifics) 1 pk/day COPD (chronic obstructive pulmonary disease) Allergic rhinitis Transient diplopia Hypertension H/O diverticulitis of colon Postmenopausal osteoporosis Hyperlipidemia Asthma uses rescue inhalers prn Arthritis Anxiety Acid reflux disease Surgical History Port-A-Cath in place (02/19/24) Insertion Access Port with Fluoroscopy(Not Applicable) - Kushal Jordan DO, FACS History of thoracentesis 01/29/24 @ [facility] Status post excision of lipoma S/P cataract extraction bilateral H/O colonoscopy Family History Father Diabetes Myocardial infarction Throat cancer Mother Hypertension Brother Lung cancer FHx: kidney cancer Daughter Brain cancer Denies family history of Ovarian cancer Prostate cancer Breast cancer Colorectal cancer Social History Smoking Status: Former smoker Tobacco Type: Cigarettes Age Started Using Tobacco: 20; Age Quit Using Tobacco: 52; packs per day: 1; Second Hand Exposure: No; Do You Dip or Chew Tobacco: No; Hx Alcohol Use: No Hx Substance Use: No Preferred Language: Thai Communication Ability: Effective Visual Impairment: No Limitations Hearing Ability: Normal Purchasing Analyst Required: No Beliefs That Will Affect Care: None marital status: / Current Living Situation: Alone current occupational status: retired current occupation: Used to work at a [employer] How many Children do You have: 1 How many Children do You have Comment: Only child is . Feels Safe at Home: Yes Childhood Exposure to Second-Hand Smoke: Yes Diet: regular caffeine: Yes (coffee, tea occasionally) during the past year weight has: decreased > 10 lbs Dental Care, Regularly: Yes Physical Activity Frequency: Does not Exercise Seatbelt Use: always Sunscreen Use: No Do you think of yourself as: straight/heterosexual Gender Identity: Female Assistive Devices: Glasses, Oxygen - Continuous and Walker Allergies Allergies Allergy/AdvReac Type Severity Reaction Status Date / Time tetanus toxoid, adsorbed Allergy Intermediate LOCALIZED Verified 03/30/24 15:04 SWELLING, ITCHING AND REDNESS AT INJECTION SITE ibuprofen AdvReac Severe BLOODY Verified 03/30/24 15:04 URINE azithromycin AdvReac Intermediate FATIGUE Verified 03/30/24 15:04 Home Meds Home Medications Medication Instructions Recorded Confirmed omega-3 360 sj-ele-con-fish oil 1 cap PO DAILY 06/23/19 03/30/24 1,200 mg capsule,delayed release (Fish Oil) multivitamin (One-A-Day Essential 1 tab PO DAILY 07/01/19 03/30/24 tablet) albuterol sulfate 2.5 mg/3 mL 2.5 mg inhalation QID PRN sob 02/12/24 03/30/24 (0.083 %) solution for nebulization prochlorperazine maleate 10 mg 10 mg PO QID PRN Nausea And 02/12/24 03/30/24 tablet (Compazine) Vomiting albuterol sulfate 90 mcg/actuation 2 puff inhalation QID PRN 02/19/24 03/30/24 aerosol inhaler Shortness Of Breath Or Wheezing psyllium husk 3.4 gram/5.4 gram 1 tbsp PO DAILY 03/13/24 03/30/24 oral powder (Metamucil) sodium chloride 1,000 mg soluble 1,000 mg PO BID 03/30/24 03/30/24 tablet Previous Rx's Medication Instructions Recorded aspirin 81 mg tablet,delayed 81 mg PO DAILY #30 tabs 07/14/19 release (Ecotrin Low Strength) coenzyme Q10 200 mg capsule 200 mg PO DAILY #90 caps 08/05/19 cholecalciferol (vitamin D3) 50 50 mcg PO DAILY #30 caps 10/31/21 mcg (2,000 unit) capsule cyclobenzaprine 5 mg tablet 5 mg PO TID PRN muscle spasm #30 01/31/23 tabs amlodipine 2.5 mg tablet 2.5 mg PO DAILY #90 tabs 09/19/23 nebulizer accessories #1 ea 10/02/23 Oxygen Home E0424 #3 L 10/22/23 buspirone 5 mg tablet 5 mg PO TID #270 tabs 10/29/23 famotidine 40 mg tablet 40 mg PO DAILY #90 tabs 11/14/23 simvastatin 20 mg tablet 20 mg PO HS #90 tabs 01/09/24 fluticasone fur. 200 mcg-umeclid 1 inh inhalation DAILY #60 ea 02/11/24 62.5 mcg-vilant 25 mcg inhalat.powder (Trelegy Ellipta) Results & Data (ED) Vital Signs Vital Signs - 24 hr 03/30/24 11:25 03/30/24 12:38 03/30/24 12:43 Temperature Temperature Source Pulse Rate Pulse Rate [Left Apical] 66 Respiratory Rate 20 19 Respiratory Effort / Characteristics Non-Labored Spontaneous Short of Breath Non-Labored Respiratory Depth Normal Normal Respiratory Pattern Regular Blood Pressure 106/50 L Blood Pressure [Right Arm] 122/49 L Blood Pressure Mean 68 Blood Pressure Mean [Right Arm] 73 Blood Pressure Position Sitting Pulse Oximetry 92 98 Oxygen Delivery Method Nasal Cannula Nasal Cannula Oxygen Flow Rate 2 2 Sepsis Recent Fever Within 48 Hours No Sepsis New/Unexplained Change in Mental Status No Sepsis Action Taken by Nursing No Action Required 03/30/24 13:06 03/30/24 14:00 03/30/24 14:30 Temperature Temperature Source Pulse Rate 63 68 66 Pulse Rate [Left Apical] Respiratory Rate 18 16 Respiratory Effort / Characteristics Respiratory Depth Respiratory Pattern Blood Pressure 131/60 130/70 Blood Pressure [Right Arm] Blood Pressure Mean 83 90 Blood Pressure Mean [Right Arm] Blood Pressure Position Pulse Oximetry Oxygen Delivery Method Oxygen Flow Rate Sepsis Recent Fever Within 48 Hours Sepsis New/Unexplained Change in Mental Status Sepsis Action Taken by Nursing 03/30/24 15:00 03/30/24 15:00 03/30/24 15:08 Temperature Temperature Source Pulse Rate 68 Pulse Rate [Left Apical] 69 Respiratory Rate 20 19 Respiratory Effort / Characteristics Non-Labored Respiratory Depth Normal Respiratory Pattern Blood Pressure Blood Pressure [Right Arm] 125/58 L Blood Pressure Mean Blood Pressure Mean [Right Arm] 80 Blood Pressure Position Pulse Oximetry 98 Oxygen Delivery Method Nasal Cannula Oxygen Flow Rate 2 Sepsis Recent Fever Within 48 Hours Sepsis New/Unexplained Change in Mental Status Sepsis Action Taken by Nursing 03/30/24 15:30 Temperature 37.1 C Temperature Source Oral Pulse Rate 67 Pulse Rate [Left Apical] Respiratory Rate 19 Respiratory Effort / Characteristics Respiratory Depth Respiratory Pattern Blood Pressure 138/65 Blood Pressure [Right Arm] Blood Pressure Mean 89 Blood Pressure Mean [Right Arm] Blood Pressure Position Pulse Oximetry 97 Oxygen Delivery Method Oxygen Flow Rate 2 Sepsis Recent Fever Within 48 Hours Sepsis New/Unexplained Change in Mental Status Sepsis Action Taken by Nursing Laboratory Data 03/30/24 11:49 03/30/24 11:49 Lab Results 03/30/24 03/30/24 03/30/24 Range/Units 11:49 12:52 14:14 WBC 6.14 (4.8-10.8) K/ul RBC 1.99 L (4.20-5.40) M/uL Hgb 6.2 L* (12.0-16.0) g/dl Hct 18.7 L* (37.0-47.0) % MCV 94.0 (80.0-100.0) fL MCH 31.2 (25.0-34.0) pg MCHC 33.2 (32.0-36.0) g/dL RDW Std Deviation 50.2 H (36.4-46.3) fL RDW Coeff of Yasmin 15.1 H (11.5-14.5) % Plt Count 26 L* (130-400) K/uL MPV 12.9 H (9.4-12.4) fL Immature Gran % (Auto) 3.9 % Neut % (Auto) 43.7 % Lymph % (Auto) 24.4 % [place] % (Auto) 27.5 % Eos % (Auto) 0.2 % Baso % (Auto) 0.3 % Reticulocyte % (Auto) 0.92 (0.50-2.00) % Neut # (Auto) 2.68 (1.40-6.50) K/uL Lymph # (Auto) 1.50 (1.20-3.40) K/uL [place] # (Auto) 1.69 H (0.11-0.59) K/uL Eos # (Auto) 0.01 (0.00-0.50) K/uL Baso # (Auto) 0.02 (0.00-0.20) K/uL Reticulocyte # 0.020 (0.020-0.100) 10^6/uL Immature Gran # (Auto) 0.24 H (0.01-0.20) K/uL Toxic Granulation 1+ Dohle Bodies 1+ Platelet Estimate Decreased L (Normal) Anisocytosis Present Sodium 127 L (136-145) mmol/L Potassium 4.0 (3.5-5.1) mmol/L Chloride 93 L (98-107) mmol/L Carbon Dioxide 26 (21-32) mmol/L Anion Gap 8 (3-11) BUN 12 (6-23) mg/dl Creatinine 0.83 (0.6-1.2) mg/dl Est Cr Clr Drug Dosing Not Reportable Est GFR ( Amer) 75.1 ml/min Est GFR (Non-Af Amer) 64.8 ml/min BUN/Creatinine Ratio 14.5 (10-20) Glucose 108 H (70-99(Fasting)) mg/dl Calcium 8.7 (8.6-10.3) mg/dl Phosphorus 1.9 L (2.5-4.9) mg/dl Magnesium 1.4 L (1.7-2.4) mg/dl Iron 51 (35-150) mcg/dl TIBC 279 (250-450) mcg/dl Unsaturated IBC 228 (155-355) mcg/dl Transferrin % Sat 18 (15-50) % Ferritin 652.1 H (8-388) ng/ml Total Bilirubin 0.6 (0.2-1.0) mg/dl AST 19 (13-39) U/L ALT 6 L (7-52) U/L Alkaline Phosphatase 56 (34-104) U/L Lactate Dehydrogenase 150 (86-244) U/L Troponin I High Sens 8.7 (0-14) pg/ml B-Natriuretic Peptide 432 H (0-100) pg/ml Total Protein 6.3 (6.0-8.3) gm/dl Albumin 3.7 (3.4-5.0) gm/dl Globulin 2.6 (2.5-4.0) gm/dl Albumin/Globulin Ratio 1.4 (0.9-2) Vitamin B12 1138 H (180-914) pg/ml Folate > 22.30 (>5.38) ng/ml Urine Color Urine Appearance (Clear) Urine pH (4.5-7.5) Ur Specific Varina (1.000-1.030) Urine Protein (Negative) Urine Glucose (UA) (Negative) Urine Ketones (Negative) Urine Blood (Negative) Urine Nitrite (Negative) Urine Bilirubin (Negative) Urine Urobilinogen (Negative) Ur Leukocyte Esterase (Negative) Blood Type A Positive Blood Type Recheck A Positive Antibody Screen NEGATIVE Crossmatch See Detail 03/30/24 Range/Units 15:15 WBC (4.8-10.8) K/ul RBC (4.20-5.40) M/uL Hgb (12.0-16.0) g/dl Hct (37.0-47.0) % MCV (80.0-100.0) fL MCH (25.0-34.0) pg MCHC (32.0-36.0) g/dL RDW Std Deviation (36.4-46.3) fL RDW Coeff of Yasmin (11.5-14.5) % Plt Count (130-400) K/uL MPV (9.4-12.4) fL Immature Gran % (Auto) % Neut % (Auto) % Lymph % (Auto) % [place] % (Auto) % Eos % (Auto) % Baso % (Auto) % Reticulocyte % (Auto) (0.50-2.00) % Neut # (Auto) (1.40-6.50) K/uL Lymph # (Auto) (1.20-3.40) K/uL [place] # (Auto) (0.11-0.59) K/uL Eos # (Auto) (0.00-0.50) K/uL Baso # (Auto) (0.00-0.20) K/uL Reticulocyte # (0.020-0.100) 10^6/uL Immature Gran # (Auto) (0.01-0.20) K/uL Toxic Granulation Dohle Bodies Platelet Estimate (Normal) Anisocytosis Sodium (136-145) mmol/L Potassium (3.5-5.1) mmol/L Chloride (98-107) mmol/L Carbon Dioxide (21-32) mmol/L Anion Gap (3-11) BUN (6-23) mg/dl Creatinine (0.6-1.2) mg/dl Est Cr Clr Drug Dosing Est GFR ( Amer) ml/min Est GFR (Non-Af Amer) ml/min BUN/Creatinine Ratio (10-20) Glucose (70-99(Fasting)) mg/dl Calcium (8.6-10.3) mg/dl Phosphorus (2.5-4.9) mg/dl Magnesium (1.7-2.4) mg/dl Iron (35-150) mcg/dl TIBC (250-450) mcg/dl Unsaturated IBC (155-355) mcg/dl Transferrin % Sat (15-50) % Ferritin (8-388) ng/ml Total Bilirubin (0.2-1.0) mg/dl AST (13-39) U/L ALT (7-52) U/L Alkaline Phosphatase (34-104) U/L Lactate Dehydrogenase (86-244) U/L Troponin I High Sens (0-14) pg/ml B-Natriuretic Peptide (0-100) pg/ml Total Protein (6.0-8.3) gm/dl Albumin (3.4-5.0) gm/dl Globulin (2.5-4.0) gm/dl Albumin/Globulin Ratio (0.9-2) Vitamin B12 (180-914) pg/ml Folate (>5.38) ng/ml Urine Color Yellow Urine Appearance Clear (Clear) Urine pH 7.5 (4.5-7.5) Ur Specific Varina 1.006 (1.000-1.030) Urine Protein Negative (Negative) Urine Glucose (UA) Negative (Negative) Urine Ketones Negative (Negative) Urine Blood Negative (Negative) Urine Nitrite Negative (Negative) Urine Bilirubin Negative (Negative) Urine Urobilinogen Negative (Negative) Ur Leukocyte Esterase Negative (Negative) Blood Type Blood Type Recheck Antibody Screen Crossmatch Imaging Data Radiologist's Impression: Chest X-Ray 03/30/24 11:27 XR chest 1V not portable CLINICAL HISTORY: Dyspnea TECHNIQUE: Single frontal radiograph of the chest was obtained. Comparison: Comparison is made to chest radiograph 03/13/2024 FINDINGS: A port catheter is seen. The cardiomediastinal silhouette is normal. The lungs are clear. Small left pleural effusion is possibly slightly increased in conspicuity. IMPRESSION: Possible slight increase in conspicuity of the left pleural effusion. ACT 112: Negative or not required by law. Electronically signed by: Román Ghotra M.D. 03/30/2024 12:33 PM Discharge Plan Visit Data Chief Complaint: Cardiac Assessment Stated Complaint: RAPID HEART RATE, ROUBLE BREATHING, REF BY DOC ED Provider: Boy Jha Discharge Problem: Symptomatic anemia, Chest pain, Shortness of breath, Thrombocytopenia, Pleural effusion, Acute hyponatremia Forms Stand Alone Forms: My [email or web address] Prescriptions Prescriptions: No Action aspirin [Ecotrin Low Strength] 81 mg tablet,delayed release (DR/EC) 81 mg PO DAILY Qty: 30 2RF amlodipine 2.5 mg tablet 2.5 mg PO DAILY Qty: 90 3RF buspirone 5 mg tablet 5 mg PO TID Qty: 270 3RF famotidine 40 mg tablet 40 mg PO DAILY Qty: 90 3RF simvastatin 20 mg tablet 20 mg PO HS Qty: 90 3RF Trelegy Ellipta 200-62.5-25 mcg blister with device 1 inh inhalation DAILY Qty: 60 3RF omega 6-cof-kcr-fish oil [Fish Oil] 360-1,200 mg capsule,delayed release(DR/EC) 1 cap PO DAILY multivitamin [One-A-Day Essential] tablet 1 tab PO DAILY cholecalciferol (vitamin D3) 50 mcg (2,000 unit) capsule 50 mcg PO DAILY Qty: 30 0RF (DME) nebulizer accessories Kit See Rx Instructions .Route Qty: 1 0RF Rx Instructions: As directed (DME) Oxygen Home E0424 Liters Per Minute See Rx Instructions .ROUTE .MEDSUPPLY Qty: 3 0RF Rx Instructions: 3 L/min via nasal cannula at all times. Assess for portability. Length of need 99 years. coenzyme Q10 200 mg capsule 200 mg PO DAILY Qty: 90 3RF cyclobenzaprine 5 mg tablet 5 mg PO TID PRN (Reason: muscle spasm) Qty: 30 0RF albuterol sulfate 2.5 mg /3 mL (0.083 %) solution for nebulization 2.5 mg inhalation QID PRN (Reason: sob) prochlorperazine maleate [Compazine] 10 mg tablet 10 mg PO QID PRN (Reason: Nausea And Vomiting) albuterol sulfate 90 mcg/actuation Hfa Aerosol Inhaler 2 puff INHALATION QID PRN (Reason: Shortness Of Breath Or Wheezing) Metamucil 3.4 gram/5.4 gram Powder 1 tbsp PO DAILY Rx Instructions: mix into at least 8 oz of water or juice before administering sodium chloride 1,000 mg tablet,soluble 1,000 mg PO BID Referrals Referrals: Sophy Wallace CRNP [Primary Care Provider] - Discharge Problem: Chest pain Qualifiers: Chest pain type: unspecified Qualified Code(s): R07.9 - Chest pain, unspecified
[2024-03-30 12:47] LABS: Hematocrit (blood only) 18.7 % (37.0-47.0); Hemoglobin 6.2 g/dl (12.0-16.0); Mean Corpuscular Hemoglobin 31.2 pg (25.0-34.0); Mean Corpuscular Hgb Conc 33.2 g/dL (32.0-36.0); Mean Platelet Volume 12.9 fL (9.4-12.4); Platelet Count 26 K/uL (130-400); RDW Coefficient of Variation 15.1 % (11.5-14.5); RDW Standard Deviation 50.2 fL (36.4-46.3); Red Blood Count 1.99 M/uL (4.20-5.40); White Blood Count 6.14 K/ul (4.8-10.8)
[2024-03-30] MEDS ORDERED: SODIUM CHLORIDE 0.9% 250 ML IV PRN ×2 (12:48→13:38)
[2024-03-30 13:01] LABS: Anisocytosis Present; Basophils # (auto) 0.02 K/uL (0.00-0.20); Basophils % (auto) 0.3 %; Dohle Bodies 1+; Eosinophils # (auto) 0.01 K/uL (0.00-0.50); Eosinophils % (auto) 0.2 %; Immature Granulocytes # (auto) 0.24 K/uL (0.01-0.20); Immature Granulocytes % (auto) 3.9 %; Lymphocytes % (auto) 24.4 %; Monocytes # (auto) 1.69 K/uL (0.11-0.59); Monocytes % (auto) 27.5 %; Neutrophils # (auto) 2.68 K/uL (1.40-6.50); Neutrophils % (auto) 43.7 %; Platelet Estimate Decreased (Normal); Toxic Granulation 1+
--- NOTE | 2024-03-30 13:41 | History & Physical Report ---
Date of Service March 30, 2024 Assessment & Plan (1) Symptomatic anemia: Plan: Suspect secondary to chemotherapy Ferritin, iron studies, B12, folate, reticulocyte count, LDH ordered Transfuse 1 unit, transfuse second unit if hemoglobin less than 7 (2) Shortness of breath: Plan: Suspect secondary to anemia, reassess following transfusions Noted slight increase in left pleural effusion as possible alternative cause (3) Thrombocytopenia: Plan: Suspect secondary to chemotherapy Stop aspirin Given some significant bruising in b/l lower extremities with some bleeding and on aspirin will transfuse 1 unit platelets (4) Hyponatremia: Plan: Diagnosed in February suspected due to tea and toast diet Sodium chlride reduced to 1g PO daily, will increase back to 1g BID (5) Extruding suture: Plan: Discussed with general surgery and they will see patient (6) Orthostatic dizziness: Plan: Noted still having orthostasis symptoms after sodium improved and she wasn't yet anemic Recommend stopping amlodipine (7) 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 Intermittent palpitations and shortness of breath started on (4 days ago). Shortness of breath mainly on exertion. Progressively getting worse and she noticed she had to sit down while walking in a store on Saturday morning. In the ER she was noted to be anemic and thrombocytopenic. She denies any melena, hematochezia, epistaxis, hematemesis, hemoptysis. She is chronically on 2 L of oxygen at baseline. She is currently on chemoimmunotherapy treatment with carboplatin, etoposide and atezolizumab. Last treatment was a 3-day course starting on March 16. She was given Neulasta with this. Allergies Allergy/AdvReac Type Severity Reaction Status Date / Time tetanus toxoid, adsorbed Allergy Intermediate LOCALIZED Verified 03/30/24 15:04 SWELLING, ITCHING AND REDNESS AT INJECTION SITE ibuprofen AdvReac Severe BLOODY Verified 03/30/24 15:04 URINE azithromycin AdvReac Intermediate FATIGUE Verified 03/30/24 15:04 Home Medications Medication Instructions Recorded Confirmed Type omega-3 360 yv-sgh-wqj-fish oil 1 cap PO DAILY 06/23/19 03/30/24 History 1,200 mg capsule,delayed release (Fish Oil) multivitamin (One-A-Day Essential 1 tab PO DAILY 07/01/19 03/30/24 History tablet) aspirin 81 mg tablet,delayed 81 mg PO DAILY #30 tabs 07/14/19 03/30/24 Rx release (Ecotrin Low Strength) coenzyme Q10 200 mg capsule 200 mg PO DAILY #90 caps 08/05/19 03/30/24 Rx cholecalciferol (vitamin D3) 50 50 mcg PO DAILY #30 caps 10/31/21 03/30/24 Rx mcg (2,000 unit) capsule cyclobenzaprine 5 mg tablet 5 mg PO TID PRN muscle spasm #30 01/31/23 03/30/24 Rx tabs amlodipine 2.5 mg tablet 2.5 mg PO DAILY #90 tabs 09/19/23 03/30/24 Rx nebulizer accessories #1 ea 10/02/23 03/23/24 Rx Oxygen Home E0424 #3 L 10/22/23 03/23/24 Rx buspirone 5 mg tablet 5 mg PO TID #270 tabs 10/29/23 03/30/24 Rx famotidine 40 mg tablet 40 mg PO DAILY #90 tabs 11/14/23 03/30/24 Rx simvastatin 20 mg tablet 20 mg PO HS #90 tabs 01/09/24 03/30/24 Rx fluticasone fur. 200 mcg-umeclid 1 inh inhalation DAILY #60 ea 02/11/24 03/30/24 Rx 62.5 mcg-vilant 25 mcg inhalat.powder (Trelegy Ellipta) albuterol sulfate 2.5 mg/3 mL 2.5 mg inhalation QID PRN sob 02/12/24 03/30/24 History (0.083 %) solution for nebulization prochlorperazine maleate 10 mg 10 mg PO QID PRN Nausea And 02/12/24 03/30/24 History tablet (Compazine) Vomiting albuterol sulfate 90 mcg/actuation 2 puff inhalation QID PRN 02/19/24 03/30/24 History aerosol inhaler Shortness Of Breath Or Wheezing psyllium husk 3.4 gram/5.4 gram 1 tbsp PO DAILY 03/13/24 03/30/24 History oral powder (Metamucil) sodium chloride 1,000 mg soluble 1,000 mg PO BID 03/30/24 03/30/24 History tablet Past Med/Surg History Medical History Gross hematuria On home O2 2 lpm via nc History of back problems Pleural effusion, left s/p thoracentesis 01/29/24 [facility] Cough chronic Small cell lung cancer started chemo 01/2024, follows w/ Dr Mclean Dyspnea Former smoker Quit around 1991 Smoked for 20-30 years prior (does not know specifics) 1 pk/day COPD (chronic obstructive pulmonary disease) Allergic rhinitis Transient diplopia Hypertension H/O diverticulitis of colon Postmenopausal osteoporosis Hyperlipidemia Asthma uses rescue inhalers prn Arthritis Anxiety Acid reflux disease Surgical History Port-A-Cath in place (02/19/24) Insertion Access Port with Fluoroscopy(Not Applicable) - Kushal Jordan DO, FACS History of thoracentesis 01/29/24 @ [facility] Status post excision of lipoma S/P cataract extraction bilateral H/O colonoscopy Family History Father Diabetes Myocardial infarction Throat cancer Mother Hypertension Brother Lung cancer FHx: kidney cancer Daughter Brain cancer Denies family history of Ovarian cancer Prostate cancer Breast cancer Colorectal cancer Social History Smoking Status: Former smoker Tobacco Type: Cigarettes Age Started Using Tobacco: 20; Age Quit Using Tobacco: 52; packs per day: 1; Second Hand Exposure: No; Do You Dip or Chew Tobacco: No; Hx Alcohol Use: No Hx Substance Use: No Preferred Language: Turkish Communication Ability: Effective Visual Impairment: No Limitations Hearing Ability: Normal [place] Installer Required: No Beliefs That Will Affect Care: None marital status: / Current Living Situation: Alone current occupational status: retired current occupation: Used to work at a [employer] How many Children do You have: 1 How many Children do You have Comment: Only child is . Feels Safe at Home: Yes Childhood Exposure to Second-Hand Smoke: Yes Diet: regular caffeine: Yes (coffee, tea occasionally) during the past year weight has: decreased > 10 lbs Dental Care, Regularly: Yes Physical Activity Frequency: Does not Exercise Seatbelt Use: always Sunscreen Use: No Do you think of yourself as: straight/heterosexual Gender Identity: Female Assistive Devices: Glasses and Oxygen - Continuous Review of Systems Review of Systems: All systems reviewed & are unremarkable except as noted in HPI & below Physical Exam Constitutional: well developed; + not well nourished and no acute distress Eyes: PERRL, conjunctivae normal, anicteric sclerae ENMT: external ear and nose normal, oropharynx normal Respiratory: normal respiratory effort, lungs clear to auscultation Cardiovascular: RRR, no murmur, no edema Gastrointestinal (Abdomen): normal bowel sounds, soft, nontender, no hepatosplenomegaly Musculoskeletal: no cyanosis or clubbing, extremities motor strength 5/5 Skin: no rashes, warm and dry Neurologic: moves all extremities and awake; not confused Psychiatric: A+Ox3, euthymic affect Results & Data Results & Data Vital Signs (Past 12 Hours) Vital Signs Pulse Resp BP BP Pulse Ox O2 Del Method O2 Flow Rate 03/30/24 12:43 66 19 122/49 L 98 Nasal Cannula 2 03/30/24 11:25 20 106/50 L 92 Nasal Cannula 2 Laboratory Results Abnormal lab results 03/30/24 03/30/24 03/30/24 Range/Units 11:49 12:52 14:14 RBC 1.99 L (4.20-5.40) M/uL Hgb 6.2 L* (12.0-16.0) g/dl Hct 18.7 L* (37.0-47.0) % RDW Std Deviation 50.2 H (36.4-46.3) fL RDW Coeff of Yasmin 15.1 H (11.5-14.5) % Plt Count 26 L* (130-400) K/uL MPV 12.9 H (9.4-12.4) fL Woodward # (Auto) 1.69 H (0.11-0.59) K/uL Immature Gran # (Auto) 0.24 H (0.01-0.20) K/uL Platelet Estimate Decreased L (Normal) Sodium 127 L (136-145) mmol/L Chloride 93 L (98-107) mmol/L Glucose 108 H (70-99(Fasting)) mg/dl Phosphorus 1.9 L (2.5-4.9) mg/dl Magnesium 1.4 L (1.7-2.4) mg/dl Ferritin 652.1 H (8-388) ng/ml ALT 6 L (7-52) U/L B-Natriuretic Peptide 432 H (0-100) pg/ml Vitamin B12 1138 H (180-914) pg/ml Crossmatch See Detail Diagnostic Findings XR chest 1V not portable CLINICAL HISTORY: Dyspnea TECHNIQUE: Single frontal radiograph of the chest was obtained. Comparison: Comparison is made to chest radiograph 03/13/2024 FINDINGS: A port catheter is seen. The cardiomediastinal silhouette is normal. The lungs are clear. Small left pleural effusion is possibly slightly increased in conspicuity. IMPRESSION: Possible slight increase in conspicuity of the left pleural effusion. Medications Administered ER medications given: None ECG Rate (beats per minute): 72 Rhythm: normal sinus Findings: no acute ischemic change Comparison ECG Date: from (March 13, 2024) Change: no significant change Code Status & VTE Plan Code Status Full VTE Prophylaxis Plan VTE Prophylaxis will be ordered: Yes PG Care Time/CCT Total # of Minutes Spent Total Time Spent with Patient: Total time spent is greater than 50% in coordination of care (as documented) at patient's floor/unit and/or counseling patient: Coding Level of Care Code 83029 INT INP/OBS CARE 3/75MIN Diagnoses Symptomatic anemia D64.9 Shortness of breath R06.02 Thrombocytopenia D69.6 Hyponatremia E87.1 Extruding suture T81.30XA Orthostatic dizziness R42 Small cell lung cancer C34.90
[2024-03-30 13:57] LABS: Magnesium 1.4 mg/dl (1.7-2.4)
[2024-03-30 14:02] LABS: Phosphorus 1.9 mg/dl (2.5-4.9)
[2024-03-30 14:49] LABS: Reticulocyte % 0.92 % (0.50-2.00); Reticulocytes # 0.02 10^6/uL (0.020-0.100)
--- NOTE | 2024-03-30 15:09 | Surgery Consultation ---
Date of Consultation March 30, 2024 Assessment & Plan (1) Extruding suture: This is an 83yF with a PMH of lung ca s/p mediport placement by Dr. Jordan on who presents to the [facility] ED on 03/30/24 with complaints of heart palpitations associated with SOB. She also endorses dyspnea on exertion. We have been consulted to evaluate patient for a stitch popping through her incision. She states she thought it was the skin glue and that it has been present for over a wk and was told not to mess with it. Her port as been otherwise been able to be used without issues. There have been no issues with obtaining access or with receiving chemo. Last treatment session was 2 weeks ago and next is scheduled for Saturday04/06/24. Port site was evaluated. Her mediport site appears c/d/i without signs of infection. None tender to palpation. There was a small piece of white vicryl suture popping through the healed incision. This was trimmed to be level with incision. The remainder should dissolve over time. Port okay for use. We will sign off, thank you for consult. History of Present Illness History of Present Illness This is an 83yF with a PMH of lung ca s/p mediport placement by Dr. Jordan on who presents to the [facility] ED on 03/30/24 with complaints of heart palpitations associated with SOB. She also endorses dyspnea on exertion. We have been consulted to evaluate patient for a stitch popping through her incision. She states she thought it was the skin glue and that it has been present for over a wk and was told not to mess with it. Her port as been otherwise been able to be used without issues. No pain, no issues with access. She denies fevers/chills, abdominal pain, nausea. Some low appetite. No issues with her chemo. Last was 2 weeks ago and next is scheduled for Saturday04/06/24. Allergies Allergy/AdvReac Type Severity Reaction Status Date / Time tetanus toxoid, adsorbed Allergy Intermediate LOCALIZED Verified 03/30/24 15:04 SWELLING, ITCHING AND REDNESS AT INJECTION SITE ibuprofen AdvReac Severe BLOODY Verified 03/30/24 15:04 URINE azithromycin AdvReac Intermediate FATIGUE Verified 03/30/24 15:04 Home Medications Medication Instructions Recorded Confirmed Type omega-3 360 wg-jxw-dlz-fish oil 1 cap PO DAILY 06/23/19 03/30/24 History 1,200 mg capsule,delayed release (Fish Oil) multivitamin (One-A-Day Essential 1 tab PO DAILY 07/01/19 03/30/24 History tablet) aspirin 81 mg tablet,delayed 81 mg PO DAILY #30 tabs 07/14/19 03/30/24 Rx release (Ecotrin Low Strength) coenzyme Q10 200 mg capsule 200 mg PO DAILY #90 caps 08/05/19 03/30/24 Rx cholecalciferol (vitamin D3) 50 50 mcg PO DAILY #30 caps 10/31/21 03/30/24 Rx mcg (2,000 unit) capsule cyclobenzaprine 5 mg tablet 5 mg PO TID PRN muscle spasm #30 01/31/23 03/30/24 Rx tabs amlodipine 2.5 mg tablet 2.5 mg PO DAILY #90 tabs 09/19/23 03/30/24 Rx nebulizer accessories #1 ea 10/02/23 03/23/24 Rx Oxygen Home E0424 #3 L 10/22/23 03/23/24 Rx buspirone 5 mg tablet 5 mg PO TID #270 tabs 10/29/23 03/30/24 Rx famotidine 40 mg tablet 40 mg PO DAILY #90 tabs 11/14/23 03/30/24 Rx simvastatin 20 mg tablet 20 mg PO HS #90 tabs 01/09/24 03/30/24 Rx fluticasone fur. 200 mcg-umeclid 1 inh inhalation DAILY #60 ea 02/11/24 03/30/24 Rx 62.5 mcg-vilant 25 mcg inhalat.powder (Trelegy Ellipta) albuterol sulfate 2.5 mg/3 mL 2.5 mg inhalation QID PRN sob 02/12/24 03/30/24 History (0.083 %) solution for nebulization prochlorperazine maleate 10 mg 10 mg PO QID PRN Nausea And 02/12/24 03/30/24 History tablet (Compazine) Vomiting albuterol sulfate 90 mcg/actuation 2 puff inhalation QID PRN 02/19/24 03/30/24 History aerosol inhaler Shortness Of Breath Or Wheezing psyllium husk 3.4 gram/5.4 gram 1 tbsp PO DAILY 03/13/24 03/30/24 History oral powder (Metamucil) sodium chloride 1,000 mg soluble 1,000 mg PO BID 03/30/24 03/30/24 History tablet Patient History Medical History Gross hematuria On home O2 2 lpm via nc History of back problems Pleural effusion, left s/p thoracentesis 01/29/24 [facility] Cough chronic Small cell lung cancer started chemo 01/2024, follows w/ Dr Mclean Dyspnea Former smoker Quit around 1991 Smoked for 20-30 years prior (does not know specifics) 1 pk/day COPD (chronic obstructive pulmonary disease) Allergic rhinitis Transient diplopia Hypertension H/O diverticulitis of colon Postmenopausal osteoporosis Hyperlipidemia Asthma uses rescue inhalers prn Arthritis Anxiety Acid reflux disease Surgical History Port-A-Cath in place (02/19/24) Insertion Access Port with Fluoroscopy(Not Applicable) - Kushla Jordan DO, FACS History of thoracentesis 01/29/24 @ [facility] Status post excision of lipoma S/P cataract extraction bilateral H/O colonoscopy Family History Father Diabetes Myocardial infarction Throat cancer Mother Hypertension Brother Lung cancer FHx: kidney cancer Daughter Brain cancer Denies family history of Ovarian cancer Prostate cancer Breast cancer Colorectal cancer Social History Smoking Status: Former smoker Tobacco Type: Cigarettes Age Started Using Tobacco: 20; Age Quit Using Tobacco: 52; packs per day: 1; Second Hand Exposure: No; Do You Dip or Chew Tobacco: No; Hx Alcohol Use: No Hx Substance Use: No Preferred Language: Occitan Communication Ability: Effective Visual Impairment: No Limitations Hearing Ability: Normal Press Catcher Required: No Beliefs That Will Affect Care: None marital status: / Current Living Situation: Alone current occupational status: retired current occupation: Used to work at a [employer] How many Children do You have: 1 How many Children do You have Comment: Only child is . Feels Safe at Home: Yes Childhood Exposure to Second-Hand Smoke: Yes Diet: regular caffeine: Yes (coffee, tea occasionally) during the past year weight has: decreased > 10 lbs Dental Care, Regularly: Yes Physical Activity Frequency: Does not Exercise Seatbelt Use: always Sunscreen Use: No Do you think of yourself as: straight/heterosexual Gender Identity: Female Assistive Devices: Glasses, Oxygen - Continuous and Walker Review of Systems Constitutional: + problem reported (is cold, but not nec essarily reporting chills); no fever and no chills Respiratory: + dyspnea and + dyspnea on exertion Cardiovascular: Additional Comments: heart palpitations Gastrointestinal: no abdominal pain, no nausea and no vomiting Integumentary: no issues with port. suture sticking out of incision Physical Exam Physical Exam: awake/alert, no distress Respiratory: normal respiratory effort (on 2 liters nasal cannula) Skin: port site intact without any signs of infection. non tender. small end of white vicryl stitch popping out. Results & Data Vital Signs (Past 12 Hours) Vital Signs Pulse Resp BP BP Pulse Ox O2 Del Method O2 Flow Rate 03/30/24 12:43 66 19 122/49 L 98 Nasal Cannula 2 03/30/24 11:25 20 106/50 L 92 Nasal Cannula 2 PG Care Time/CCT Total # of Minutes Spent Total Time Spent with Patient: Total time spent is greater than 50% in coordination of care (as documented) at patient's floor/unit and/or counseling patient: Coding Level of Care Code None Diagnoses Extruding suture T81.30XA
[2024-03-30 15:22] LABS: Folate (Folic Acid),Ser orPlas > 22.30 ng/ml (>5.38)
[2024-03-30 15:23] LABS: Vitamin B12 1138 pg/ml (180-914)
[2024-03-30 15:26] LABS: Ferritin 652.1 ng/ml (8-388)
[2024-03-30 15:39] LABS: Appearance Urine Clear (Clear); Bilirubin Urine Negative (Negative); Blood Urine Negative (Negative); Color Urine Yellow; Glucose Urine UA Negative (Negative); Ketones Urine Negative (Negative); Leukocyte Esterase Urine Negative (Negative); Nitrite Urine Negative (Negative); Protein Urine Negative (Negative); Specific Gravity Urine 1.006 (1.000-1.030); Urobilinogen Urine Negative (Negative); pH Urine 7.5 (4.5-7.5)
[2024-03-30] MEDS: SODIUM CHLORIDE 1 GM TABLET PO SCH (19:57)
[2024-03-30] MEDS ORDERED: CYCLOBENZAPRINE HCL 5 MG TAB PO PRN (20:29)
[2024-03-30] MEDS ORDERED: PROCHLORPERAZINE MALEATE 10 MG TAB PO PRN (20:29)
[2024-03-30] MEDS ORDERED: ALBUTEROL 0.083% NEBU SOLN 3 ML VIAL INH PRN (20:29)
[2024-03-30] MEDS: SIMVASTATIN 20 MG TAB PO SCH (21:22)
[2024-03-30] MEDS: busPIRone 5 MG TAB PO SCH (21:22)
[2024-03-30 23:51] LABS: Hematocrit (blood only) 22.6 % (37.0-47.0); Hemoglobin 7.8 g/dl (12.0-16.0)
--- NOTE | 2024-03-31 06:17 | Electrocardiogram Report ---
Test Reason : Blood Pressure : / mmHG Vent. Rate : 072 BPM Atrial Rate : 072 BPM P-R Int : 142 ms QRS Dur : 080 ms QT Int : 364 ms P-R-T Axes : 072 056 042 degrees QTc Int : 398 ms Normal sinus rhythm Septal infarct , age undetermined Nonspecific ST abnormality Abnormal ECG When compared with ECG of 13-MAR-2024 15:18, Nonspecific T wave abnormality no longer evident in Lateral leads Confirmed by Michael Barker ([id number]) on 03/31/2024 6:17:09 AM Referred By: Sara Mclean Confirmed By:Michael Barker
[2024-03-31 07:02] LABS: BUN Creatinine Ratio 14.5 (10-20); Calcium 7.9 mg/dl (8.6-10.3); Creatinine Clr Calc Pharmacy 43.6 ml/min; Est GFR (African American) 75.1 ml/min; Est GFR (Non-African American) 64.8 ml/min; Potassium 3.8 mmol/L (3.5-5.1)
[2024-03-31 07:13] LABS: Hematocrit (blood only) 21.2 % (37.0-47.0); Hemoglobin 7.3 g/dl (12.0-16.0); Mean Corpuscular Hemoglobin 31.6 pg (25.0-34.0); Mean Corpuscular Hgb Conc 34.4 g/dL (32.0-36.0); Mean Corpuscular Volume 91.8 fL (80.0-100.0); Mean Platelet Volume 11.7 fL (9.4-12.4); Nucleated RBC # (auto) 0.02 K/uL (0.00-0.12); Nucleated RBC % (auto) 0.3 %; Platelet Count 47 K/uL (130-400); RDW Coefficient of Variation 15.9 % (11.5-14.5); Red Blood Count 2.31 M/uL (4.20-5.40); White Blood Count 6.96 K/ul (4.8-10.8)
[2024-03-31 07:16] LABS: Basophils # (auto) 0.02 K/uL (0.00-0.20); Basophils % (auto) 0.3 %; Dohle Bodies 1+; Eosinophils # (auto) 0.01 K/uL (0.00-0.50); Eosinophils % (auto) 0.1 %; Immature Granulocytes # (auto) 0.27 K/uL (0.01-0.20); Immature Granulocytes % (auto) 3.9 %; Lymphocytes # (auto) 1.87 K/uL (1.20-3.40); Lymphocytes % (auto) 26.9 %; Monocytes # (auto) 2.16 K/uL (0.11-0.59); Neutrophils # (auto) 2.63 K/uL (1.40-6.50); Neutrophils % (auto) 37.8 %; Toxic Vacuolation 1+
[2024-03-31] MEDS: CHOLECALCIFEROL 25 MCG (1000 UNITS) TAB PO SCH (07:50)
[2024-03-31] MEDS: FAMOTIDINE 40 MG TABLET PO SCH (07:50)
[2024-03-31] MEDS: PSYLLIUM or GUAR GUM FIBER 4GM PACKET PO SCH (07:51)
[2024-03-31] MEDS: UMECLIDINIUM/VILANTEROL 62.5/25MCG 7 PUFFS/INHALER INH SCH (07:52)
[2024-03-31] MEDS: FLUTICASONE FUROATE 200MCG 14 PUFFS/INHALER INH SCH (07:52)
[2024-03-31] MEDS ORDERED: NON-FORMULARY MEDICATION (Fluticasone-Umeclidin-Vilanter [Trelegy Ellipta] 200-62.5-25 mcg INH SCH (09:00)
--- NOTE | 2024-03-31 17:02 | Discharge Summary ---
Discharge Summary Date of Service March 31, 2024 Notes For Next Care Provider Follow-up labs with CBC and BMP, magnesium level at cancer center in 2 days Medication Changes From Visit Added Fxmp-Uwy-oxncuhtdc chloride 71.5 Mg p.o. once daily Discontinued amlodipine and aspirin Increased sodium chloride tablets back up to twice daily dosing of 1000 mg tablets Admission HPI Per Admitting Provider Rebecca Bryant is an 83 year old female with small cell lung cancer on chemotherapy who presents to the ER with shortness of breath and palpitations. Intermittent p alpitations and shortness of breath started on (4 days ago). Shortness of breath mainly on exertion. Progressively getting worse and she noticed she had to sit down while walking in a store on Saturday morning. In the ER she was noted to be anemic and thrombocytopenic. She denies any melena, hematochezia, epistaxis, hematemesis, hemoptysis. She is chronically on 2 L of oxygen at baseline. She is currently on chemoimmunotherapy treatment with carboplatin, etoposide and atezolizumab. Last treatment was a 3-day course starting on March 16. She was given Neulasta with this. Principal Dx & Hospital Course #1 = Principal Diagnosis (1) Symptomatic anemia: Hemoglobin 6.2 on arrival, down from 8.62 weeks ago-suspect secondary to antineoplastic therapy she received on 03/16 Ferritin not low, iron studies within normal limits, B12 normal, folate normal, reticulocyte count elevated, LDH normal Transfused 1 unit PRBCs and hemoglobin up appropriately by the following day to 7.3 (2) Shortness of breath: Suspect secondary to anemia, now resolved after transfusion Noted slight increase in left pleural effusion as possible alternative cause but not likely as a small Continue home oxygen (3) Thrombocytopenia: Suspect secondary to chemotherapy, platelets 26 K on arrival and she has had increased bruising Stop aspirin while on chemotherapy Given some significant bruising in b/l lower extremities with some bleeding and on aspirin was transfused 1 unit platelets Platelets up to 47 K on day of discharge (4) Hyponatremia: Diagnosed in February suspected due to tea and toast diet, but also with lung cancer contributing Sodium chloride reduced to 1g PO daily recently, will increase back to 1g BID Sodium improved to 132 from 127 on admission after transfusion-improving likely also worsened by hypovolemia Follow BMP as an outpatient Also with chronic hypomagnesemia-start magnesium chloride 71.5 mg p.o. once daily Follow magnesium levels as an outpatient with cancer center (5) Extruding suture: Appreciate general surgery consultation-they have trim down the Vicryl suture which was protruding and recommend continued observation as this will dissolve on its own (6) Orthostatic dizziness: Noted still having orthostasis symptoms after sodium improved and she wasn't yet anemic Recommend stopping amlodipine This has resolved (7) Small cell lung cancer: Currently on chemoimmunotherapy Follow up as outpatient Plan VTE Prophylaxis - chemical contraindicated with thrombocytopenia, SCDs contra indicated with excessive lower extremity bruising Disposition -much improved, stable for discharge to home. Discussed her care with her outpatient oncologist on the day of discharge Discharge Exam Constitutional WD/WN, vitals as above Respiratory normal respiratory effort, lungs clear to auscultation Cardiovascular RRR, no murmur, no edema Skin Chronic venous stasis changes on legs, some minor bruising on right hand Psychiatric A+Ox3, euthymic affect Updated Medication List Medication Instructions Recorded Confirmed Type omega-3 360 tg-kxp-tpf-fish oil 1 cap PO DAILY 06/23/19 03/30/24 History 1,200 mg capsule,delayed release (Fish Oil) multivitamin (One-A-Day Essential 1 tab PO DAILY 07/01/19 03/30/24 History tablet) aspirin 81 mg tablet,delayed 81 mg PO DAILY #30 tabs 07/14/19 03/30/24 Rx release (Ecotrin Low Strength) coenzyme Q10 200 mg capsule 200 mg PO DAILY #90 caps 08/05/19 03/30/24 Rx cholecalciferol (vitamin D3) 50 50 mcg PO DAILY #30 caps 10/31/21 03/30/24 Rx mcg (2,000 unit) capsule cyclobenzaprine 5 mg tablet 5 mg PO TID PRN muscle spasm #30 01/31/23 03/30/24 Rx tabs amlodipine 2.5 mg tablet 2.5 mg PO DAILY #90 tabs 09/19/23 03/30/24 Rx nebulizer accessories #1 ea 10/02/23 03/23/24 Rx Oxygen Home E0424 #3 L 10/22/23 03/23/24 Rx buspirone 5 mg tablet 5 mg PO TID #270 tabs 10/29/23 03/30/24 Rx famotidine 40 mg tablet 40 mg PO DAILY #90 tabs 11/14/23 03/30/24 Rx simvastatin 20 mg tablet 20 mg PO HS #90 tabs 01/09/24 03/30/24 Rx fluticasone fur. 200 mcg-umeclid 1 inh inhalation DAILY #60 ea 02/11/24 03/30/24 Rx 62.5 mcg-vilant 25 mcg inhalat.powder (Trelegy Ellipta) albuterol sulfate 2.5 mg/3 mL 2.5 mg inhalation QID PRN sob 02/12/24 03/30/24 History (0.083 %) solution for nebulization prochlorperazine maleate 10 mg 10 mg PO QID PRN Nausea And 02/12/24 03/30/24 History tablet (Compazine) Vomiting albuterol sulfate 90 mcg/actuation 2 puff inhalation QID PRN 02/19/24 03/30/24 History aerosol inhaler Shortness Of Breath Or Wheezing psyllium husk 3.4 gram/5.4 gram 1 tbsp PO DAILY 03/13/24 03/30/24 History oral powder (Metamucil) sodium chloride 1,000 mg soluble 1,000 mg PO BID 03/30/24 03/30/24 History tablet magnesium chloride 71.5 mg 71.5 mg PO DAILY #30 tabs 03/31/24 Rx (magnesium chloride) tablet,delayed release (Slow-Mag) Hospital Stay Data Consultations 03/30/24 13:09 ED Decision to Admit Stat 03/30/24 21:56 Consult General Surgery Routine Pending Results Patient Have Any Pending Studies at Discharge: No Discharge Instructions Given to Patient (Per Discharging Provider) You were admitted with low blood counts and given transfusions and are now feeling better. Your aspirin was discontinued. Your amlodipine was also discontinued as her blood pressures are on the low side. Please follow-up for labs in the cancer center as scheduled on , and with the cancer center on Saturday for chemotherapy. Total Time Total Time Spent Total Time Spent (In Minutes): 35 minutes Total Time Includes: Examination of the Patient, Discharge Planning, Medication Reconciliation and Communication With Other Providers (Oncology) Coding Level of Care Code 29842 INP/OBS DISCH >30 MIN Diagnoses Symptomatic anemia D64.9 Shortness of breath R06.02 Thrombocytopenia D69.6 Hyponatremia E87.1 Extruding suture T81.30XA Orthostatic dizziness R42 Small cell lung cancer C34.90
[2024-03-31] MEDS: MAGNESIUM OXIDE 400 MG TAB PO SCH (17:25)
== END 2024-03-31 18:04 | disposition home or self-care (01) ==
LOC: ED 11:21 → 3E 11:21 → SUATTDRO 14:11 → 3E 16:24

== ENCOUNTER 2025-08-14 09:39 | Inpatient (IN) ==
--- NOTE | 2025-08-14 09:52 | Emergency Department Note ---
Impression & Plan Blood culture positive, History of lung cancer ED Provider Note NAME: CLIFFORD REIS AGE: 85 SEX: F : 1940 ARRIVES VIA: Walk-In INFORMANT: Patient, ED PROVIDER(S): Marlon Euceda MD CHIEF COMPLAINT: Positive blood cultures MEDICAL DECISION MAKING: Patient presents with the above IV was established and blood work was obtained. Repeat cultures obtained and the patient was ordered empiric vancomycin 20 mg/kg load for 1 g. I did speak with the on-call hospital service after reviewing the patient's blood work the patient was admitted to the medicine service. Blood work shows a normal white count hemoglobin of 9.4. Patient's platelet count is unremarkable. Kidney function unremarkable hyponatremia noted at 129 urine and serum osmolality ordered along with urine electrolytes. Urinalysis does not show evidence of obvious infection. I spoke with Dr. Mosley and the patient was admitted to the medicine service. Discussion w/ other healthcare providers: Dr. Mosley inpatient medicine service Prior /Outside records reviewed: None Differential diagnosis: Infection, dehydration, metabolic abnormality, hypo/hyperglycemia, electrolyte imbalance, anemia, UTI, pneumonia, thyroid dysfunction among others were considered. Diagnostics, as interpreted by me: ECG: Normal sinus rhythm, rate of 64, normal intervals, normal axis no ST elevations Motion artifact noted in V4 and V5. Slight ST depression noted in V6. ST depression appears grossly unchanged for comparison to August 12, 2025. Cardiac monitoring: An order was placed for continuous cardiac monitoring. The monitor shows a rate of 65 with sinus rhythm. Patient was placed on pulse oximetry Medical decision rules: None Imaging studies: I informally interpreted the patient's chest x-ray with port in place, left- sided pleural effusion noted. No obvious pneumonia or pneumothorax with formal report to follow. HPI: Patient presents due to concern for positive blood cultures. The patient was called this morning and asked to return. Patient presented 2 days ago to to concern for worsening shortness of breath and had been sent over from the cancer clinic to rule out PE. The patient had a negative CT angiography of the chest at that time was discharged home with pending drainage of a pleural effusion which is to be done as an outpatient. Patient states that she has noted chest pain but does have chronic shortness of breath no falls or trauma. The patient states she has had poor appetite. The patient did have chemo completed yesterday. Known history of lung cancer that is metastatic. She has not received any radiation or surgical treatment. She denies any fevers or chills. PAST MEDICAL HISTORY: See Below PAST SURGICAL HISTORY: See Below SOCIAL HISTORY: See Below HOME MEDICATIONS: See Below ALLERGIES: See Below VITALS: See Below PHYSICAL EXAMINATION: GENERAL: NAD, non-toxic. Thin in appearance. EYE EXAM: Normal conjunctiva. PERRL, no anisocoria and EOM's grossly intact w/o pain. OROPHARYNX: Moist mucus membranes, grossly normal dentition. NECK: Trachea midline, no stridor. LUNGS: Clear to auscultation. Normal chest wall mechanics. HEART: NSR, no MRG. ABDOMEN: Abdomen soft, non-tender, no masses, no rebound or guarding. BACK: No CVA TTP. SKIN: No rashes and no bruising. UPPER EXTREMITIES: Upper extremities are grossly normal. LOWER EXTREMITIES: Grossly normal, no edema. NEURO EXAM: Awake and alert, follows commands, no obvious facial asymmetry, normal speech, moves all 4 extremities. 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, follows w/ Dr Mclean Chronic hypoxic respiratory failure Anemia Former smoker Quit around 1991 Smoked for 20-30 years prior (does not know specifics) 1 pk/day Hypertension Hyperlipidemia (Chronic) COPD (chronic obstructive pulmonary disease) Asthma (Chronic) uses rescue inhalers prn Acid reflux disease (Chronic) Postmenopausal osteoporosis (Chronic) Anxiety (Chronic) Allergic rhinitis Arthritis (Chronic) H/O diverticulitis of colon (Chronic) Medical History On home O2 2 lpm via ne Surgical History S/P tonsillectomy and adenoidectomy Port-A-Cath in place (02/19/24) Insertion Access Port with Fluoroscopy(Not Applicable) - Kushal Jordan DO, FACS History of thoracentesis 01/29/24 @ [facility] Status post excision of lipoma S/P cataract extraction bilateral H/O colonoscopy Family History Father , in his 70-80s Diabetes Myocardial infarction Throat cancer Mother , in her 80s Hypertension Stroke Brother Lung cancer Cancer of kidney Daughter Brain cancer Denies family history of Ovarian cancer Prostate cancer Breast cancer Colorectal cancer Social History Smoking Status: Former smoker Tobacco Type: Cigarettes Age Started Using Tobacco: 20; Age Quit Using Tobacco: 52; packs per day: 1; Cigarettes Per Day: 1 PPD x 20 yrs; Second Hand Exposure: No; Do You Dip or Chew Tobacco: No; Hx Alcohol Use: No Hx Substance Use: No Preferred Language: Vietnamese Communication Ability: Effective Visual Impairment: Partially Limited Hearing Ability: Normal [place] Member Required: No Beliefs That Will Affect Care: None marital status: / Current Living Situation: Alone current occupational status: retired current occupation: Used to work at [employer] How many Children do You have: 1 How many Children do You have Comment: Only child is . Feels Safe at Home: Yes Childhood Exposure to Second-Hand Smoke: Yes Diet: regular caffeine: Yes (coffee, tea occasionally) during the past year weight has: decreased > 10 lbs Dental Care, Regularly: Yes Physical Activity Frequency: Does not Exercise Seatbelt Use: always Sunscreen Use: No Do you think of yourself as: straight/heterosexual Gender Identity: Female Assistive Devices: Oxygen - Continuous and Walker Allergies Allergies Allergy/AdvReac Type Severity Reaction Status Date / Time tetanus toxoid, adsorbed Allergy Intermediate LOCALIZED Verified 08/14/25 11:29 SWELLING, ITCHING AND REDNESS AT INJECTION SITE ibuprofen AdvReac Severe BLOODY Verified 08/14/25 11:29 URINE azithromycin AdvReac Intermediate FATIGUE Verified 08/14/25 11:29 levofloxacin AdvReac Intermediate lightheaded Verified 08/14/25 11:29 ness buspirone Allergy Intermediate Altered Uncoded 08/14/25 11:29 sensation--Central "jaggy" all over Home Meds Home Medications Medication Instructions Recorded Confirmed multivitamin (One-A-Day Essential 1 tab PO QAM 07/01/19 08/14/25 tablet) psyllium husk 3.4 gram/5.4 gram 1 tbsp PO DAILY 03/13/24 08/14/25 oral powder (Metamucil) calcium 600 mg (as 2 cap PO DAILY 04/01/24 08/14/25 carbonate)-vitamin D3 12.5 mcg (500 unit) capsule (Calcium with Vit D3) albuterol sulfate 2.5 mg/3 mL 2.5 mg inhalation Q4H PRN sob 07/07/25 08/14/25 (0.083 %) solution for nebulization ondansetron HCl 8 mg tablet 8 mg PO Q8H PRN N/V 07/07/25 08/14/25 prochlorperazine maleate 10 mg 10 mg PO Q6H PRN Nausea And 07/07/25 08/14/25 tablet (Compazine) Vomiting triamcinolone acetonide 0.5 % 1 applic topical BID PRN as 07/07/25 08/14/25 topical cream directed famotidine 40 mg tablet 40 mg PO QAM 07/13/25 08/14/25 fluticasone fur. 200 mcg-umeclid 1 inh inhalation QAM 07/13/25 08/14/25 62.5 mcg-vilant 25 mcg inhalat.powder (Trelegy Ellipta) tramadol 50 mg tablet 50 - 100 mg PO QID PRN pain 08/12/25 08/14/25 amlodipine 2.5 mg tablet 2.5 mg PO QAM 08/14/25 08/14/25 Previous Rx's Medication Instructions Recorded coenzyme Q10 200 mg capsule 200 mg PO DAILY #90 caps 08/05/19 nebulizer accessories #1 ea 10/02/23 Oxygen Home #3 L 10/22/23 Portable Oxygen #1 ea 04/10/24 albuterol sulfate 90 mcg/actuation 2 puff inhalation QID PRN 08/12/24 aerosol inhaler Shortness Of Breath Or Wheezing #8.5 grams betamethasone dipropionate 0.05 % 1 applic topical BID PRN skin 01/12/25 topical cream irritation #15 grams cyclobenzaprine 5 mg tablet 5 mg PO TID PRN muscle spasm #30 01/12/25 tabs sertraline 25 mg tablet (Zoloft) 25 mg PO DAILY #90 tabs 05/13/25 simvastatin 20 mg tablet 20 mg PO HS #90 tabs 05/13/25 oxycodone 5 mg tablet 5 mg PO Q8H PRN pain #15 tabs 07/13/25 Results & Data (ED) Vital Signs Vital Signs - 24 hr 08/14/25 09:42 08/14/25 10:15 08/14/25 10:17 Temperature 36.7 C Temperature Source Oral Pulse Rate 82 70 63 Pulse Rate [Left Finger] Pulse Rate from SpO2 Sensor Pulse Rhythm Regular Respiratory Rate 17 18 Blood Pressure 162/88 H Blood Pressure [Right Arm] Blood Pressure Mean 112 Blood Pressure Mean [Right Arm] Pulse Oximetry 92 96 Oxygen Delivery Method Nasal Cannula Nasal Cannula Oxygen Flow Rate 2 2 Sepsis Recent Fever Within 48 Hours No Sepsis New/Unexplained Change in Mental Status N/A Sepsis Action Taken by Nursing No Action Required 08/14/25 11:27 08/14/25 11:41 08/14/25 12:33 Temperature Temperature Source Pulse Rate 84 70 Pulse Rate [Left Finger] 72 Pulse Rate from SpO2 Sensor 74 70 Pulse Rhythm Respiratory Rate 20 20 17 Blood Pressure Blood Pressure [Right Arm] 166/76 H Blood Pressure Mean Blood Pressure Mean [Right Arm] 106 Pulse Oximetry 98 98 97 Oxygen Delivery Method Nasal Cannula Nasal Cannula Oxygen Flow Rate 2 3 Sepsis Recent Fever Within 48 Hours Sepsis New/Unexplained Change in Mental Status Sepsis Action Taken by Nursing 08/14/25 12:44 08/14/25 13:57 08/14/25 14:45 Temperature Temperature Source Pulse Rate 70 69 74 Pulse Rate [Left Finger] Pulse Rate from SpO2 Sensor 71 74 Pulse Rhythm Respiratory Rate 14 16 17 Blood Pressure 174/83 H Blood Pressure [Right Arm] Blood Pressure Mean 137 Blood Pressure Mean [Right Arm] Pulse Oximetry 97 98 97 Oxygen Delivery Method Nasal Cannula Oxygen Flow Rate 3 Sepsis Recent Fever Within 48 Hours Sepsis New/Unexplained Change in Mental Status Sepsis Action Taken by Nursing 08/14/25 15:23 Temperature Temperature Source Pulse Rate 69 Pulse Rate [Left Finger] Pulse Rate from SpO2 Sensor Pulse Rhythm Respiratory Rate 20 Blood Pressure 131/100 Blood Pressure [Right Arm] Blood Pressure Mean 108 Blood Pressure Mean [Right Arm] Pulse Oximetry 96 Oxygen Delivery Method Nasal Cannula Oxygen Flow Rate 3 Sepsis Recent Fever Within 48 Hours Sepsis New/Unexplained Change in Mental Status Sepsis Action Taken by Skilled Nursing Medications Current Medication List: was personally reviewed by me Laboratory Data Attestation: I reviewed the patient's lab results. 08/14/25 10:14 08/14/25 10:14 Lab Results 08/14/25 08/14/25 Range/Units 10:14 12:01 WBC 6.52 (4.8-10.8) K/ul RBC 2.79 L (4.20-5.40) M/uL Hgb 9.4 L (12.0-16.0) g/dl Hct 28.8 L (37.0-47.0) % MCV 103.2 H (80.0-100.0) fL MCH 33.7 (25.0-34.0) pg MCHC 32.6 (32.0-36.0) g/dL RDW Std Deviation 57.2 H (36.4-46.3) fL RDW Coeff of Yasmin 15.5 H (11.5-14.5) % Plt Count 338 (130-400) K/uL MPV 10.1 (9.4-12.4) fL Immature Gran % (Auto) 0.3 % Neut % (Auto) 65.9 % Lymph % (Auto) 21.0 % Emanuel % (Auto) 12.3 % Eos % (Auto) 0.3 % Baso % (Auto) 0.2 % Neut # (Auto) 4.30 (1.40-6.50) K/uL Lymph # (Auto) 1.37 (1.20-3.40) K/uL Emanuel # (Auto) 0.80 H (0.11-0.59) K/uL Eos # (Auto) 0.02 (0.00-0.50) K/uL Baso # (Auto) 0.01 (0.00-0.20) K/uL Immature Gran # (Auto) 0.02 (0.01-0.20) K/uL Sodium 129 L (136-145) mmol/L Potassium 4.0 (3.5-5.1) mmol/L Chloride 97 L (98-107) mmol/L Carbon Dioxide 25 (21-32) mmol/L Anion Gap 7 (3-11) BUN 20 (6-23) mg/dl Creatinine 0.94 (0.6-1.2) mg/dl Est Cr Clr Drug Dosing 37.4 ml/min eGFR 59.09 BUN/Creatinine Ratio 21.3 H (10-20) Glucose 106 H (70-99(Fasting)) mg/dl Osmolality 274 L (280-300) mOsm/kg Lactate 1.7 (0.4-2.0) mmol/L Calcium 8.1 L (8.6-10.3) mg/dl Magnesium 1.6 L (1.7-2.4) mg/dl Total Bilirubin 0.8 (0.2-1.0) mg/dl Direct Bilirubin 0.1 (0-0.2) mg/dl AST 40 H (13-39) U/L ALT 14 (7-52) U/L Alkaline Phosphatase 41 (34-104) U/L Troponin I High Sens 12.2 D (0-14) pg/ml Total Protein 6.1 (6.0-8.3) gm/dl Albumin 3.9 (3.4-5.0) gm/dl Procalcitonin 0.14 (0-0.5) ng/ml Urine Color Yellow Urine Appearance Clear (Clear) Urine pH 6.0 (4.5-7.5) Ur Specific [place] 1.008 (1.000-1.030) Urine Protein Negative (Negative) Urine Glucose (UA) Negative (Negative) Urine Ketones Negative (Negative) Urine Blood Negative (Negative) Urine Nitrite Negative (Negative) Urine Bilirubin Negative (Negative) Urine Urobilinogen Negative (Negative) Ur Leukocyte Esterase Trace H (Negative) Urine WBC (Auto) 0-5 (0-5) /hpf Urine RBC (Auto) 0-2 (0-2) /hpf U Hyaline Cast (Auto) 0-2 (0-2) /lpf U Epithel Cells (Auto) 0-2 (0-2) /hpf Urine Bacteria (Auto) None Seen (None Seen) Urine Osmolality 198 L (500-800) mOsm/kg Urine Sodium 21 mmol/L Urine Potassium 11.0 mmol/L Urine Chloride 21 mmol/L Urine Comment Administered Medications Discontinued Medications Calcium Carbonate (Calcium Carbonate 500 Mg Chewable Tab) 1,500 mg PO NOW STA Stop: 08/14/25 11:11 Last Admin: 08/14/25 11:25 Dose: 1,500 mg Documented By: VÍCTOR Vancomycin HCl 1,000 mg/ (Sodium Chloride) 520 mls @ 200 mls/hr IV NOW ONE Stop: 08/14/25 13:06 Last Infusion: 08/14/25 14:21 Dose: Infused Documented By: Admin: 08/14/25 11:07 Dose: 200 mls/hr Documented By: VÍCTOR Magnesium Oxide (Magnesium Oxide 400 Mg Tab) 800 mg PO NOW STA Stop: 08/14/25 11:11 Last Admin: 08/14/25 11:25 Dose: 800 mg Documented By: VÍCTOR Imaging Data Radiologist's Impression: Chest X-Ray 08/14/25 09:51 Clinical History: Sepsis Technique: 2 frontal views of the chest were obtained Findings: There is suspected left lower lobe atelectasis. The heart size is within normal limits. No right pleural effusion or pneumothorax is seen. There is a small left pleural effusion There is a right chest wall port with its tip in the SVC. There is an old fracture of the left seventh rib Impression: Small left pleural effusion and left lower lobe atelectasis ACT 112: Positive. There are findings on this exam that require communication between the performing entity and the patient following Patient Test Result Information Act ([place] ACT 112) guidelines. Electronically signed by Medhat Person 08-14-2025 10:46 AM Discharge Plan Visit Data Chief Complaint: Infection Stated Complaint: REF BY DOC, BLOOD INFECTION ED Provider: Marlon Euceda Discharge Problem: Blood culture positive, History of lung cancer Patient Disposition: Admitted As Inpatient Condition: Good Forms Stand Alone Forms: [facility] [employer] Prescriptions Prescriptions: No Action albuterol sulfate 2.5 mg /3 mL (0.083 %) solution for nebulization 2.5 mg inhalation Q4H PRN (Reason: sob) triamcinolone acetonide 0.5 % cream 1 applic topical BID PRN (Reason: as directed) ondansetron HCl 8 mg tablet 8 mg PO Q8H PRN (Reason: N/V) prochlorperazine maleate [Compazine] 10 mg tablet 10 mg PO Q6H PRN (Reason: Nausea And Vomiting) multivitamin [One-A-Day Essential] tablet 1 tab PO QAM (DME) nebulizer accessories Kit See Rx Instructions .Route Qty: 1 0RF Rx Instructions: As directed (DME) Oxygen Home Liters Per Minute See Rx Instructions .ROUTE .MEDSUPPLY Qty: 3 0RF Rx Instructions: 3 L/min via nasal cannula at all times. Assess for portability. Length of need 99 years. coenzyme Q10 200 mg capsule 200 mg PO DAILY Qty: 90 3RF calcium carbonate-vitamin D3 [Calcium 600 with Vitamin D3] 600 mg-12.5 mcg (500 unit) capsule 2 cap PO DAILY sertraline [Zoloft] 25 mg tablet 25 mg PO DAILY Qty: 90 2RF simvastatin 20 mg tablet 20 mg PO HS Qty: 90 3RF (DME) Portable Oxygen Misc See Rx Instructions .Route Qty: 1 0RF Rx Instructions: Portable oxygen at 3lpm via nc all the time with POC JESS-99 cyclobenzaprine 5 mg tablet 5 mg PO TID PRN (Reason: muscle spasm) Qty: 30 0RF betamethasone dipropionate 0.05 % cream 1 applic topical BID PRN (Reason: skin irritation) Qty: 15 1RF albuterol sulfate 90 mcg/actuation HFA aerosol inhaler 2 puff INHALATION QID PRN (Reason: Shortness Of Breath Or Wheezing) Qty: 8.5 3RF amlodipine 2.5 mg tablet 2.5 mg PO QAM Metamucil 3.4 gram/5.4 gram Powder 1 tbsp PO DAILY Rx Instructions: mix into at least 8 oz of water or juice before administering famotidine 40 mg tablet 40 mg PO QAM Trelegy Ellipta 200-62.5-25 mcg blister with device 1 inh inhalation QAM oxycodone 5 mg tablet 5 mg PO Q8H PRN (Reason: pain) Qty: 15 0RF tramadol 50 mg tablet 50 - 100 mg PO QID PRN (Reason: pain) Rx Instructions: 1-2 tabs orally four times daily PRN Referrals Referrals: Froy Renteria DO [Primary Care Provider] -
[2025-08-14] MEDS ORDERED: VANCOMYCIN CONSULT ACTIVE PRN ×2 (10:31→11:48)
[2025-08-14 10:33] LABS: Hematocrit (blood only) 28.8 % (37.0-47.0); Hemoglobin 9.4 g/dl (12.0-16.0); Immature Granulocytes # (auto) 0.02 K/uL (0.01-0.20); Immature Granulocytes % (auto) 0.3 %; Mean Corpuscular Hemoglobin 33.7 pg (25.0-34.0); Mean Corpuscular Volume 103.2 fL (80.0-100.0); Platelet Count 338 K/uL (130-400); RDW Standard Deviation 57.2 fL (36.4-46.3); Red Blood Count 2.79 M/uL (4.20-5.40); White Blood Count 6.52 K/ul (4.8-10.8)
--- NOTE | 2025-08-14 10:46 | XRay Report ---
Clinical History: Sepsis Technique: 2 frontal views of the chest were obtained Findings: There is suspected left lower lobe atelectasis. The heart size is within normal limits. No right pleural effusion or pneumothorax is seen. There is a small left pleural effusion There is a right chest wall port with its tip in the SVC. There is an old fracture of the left seventh rib Impression: Small left pleural effusion and left lower lobe atelectasis ACT 112: Positive. There are findings on this exam that require communication between the performing entity and the patient following Patient Test Result Information Act ([place] ACT 112) guidelines. Electronically signed by Medhat Preson 08-14-2025 10:46 AM
[2025-08-14 10:59] LABS: Alanine Aminotransferase 14.0 U/L (7-52); Alkaline Phosphatase 41.0 U/L (34-104); Anion Gap 7.0 (3-11); Bilirubin,Total 0.8 mg/dl (0.2-1.0); Blood Urea Nitrogen 20.0 mg/dl (6-23); Calcium 8.1 mg/dl (8.6-10.3); Carbon Dioxide 25.0 mmol/L (21-32); Chloride 97.0 mmol/L (98-107); Creatinine Clr Calc Pharmacy 37.4 ml/min; Glucose 106.0 mg/dl (70-99(Fasting)); Magnesium 1.6 mg/dl (1.7-2.4); Potassium 4.0 mmol/L (3.5-5.1); Sodium 129.0 mmol/L (136-145); Total Protein 6.1 gm/dl (6.0-8.3)
[2025-08-14] MEDS: VANCOMYCIN HCL 1,000 MG in SODIUM CHLORIDE 0.9% 500 ML IV ONE (11:07)
[2025-08-14] MEDS: CALCIUM CARBONATE 500 MG CHEWABLE TAB PO STA (11:25)
[2025-08-14] MEDS: MAGNESIUM OXIDE 400 MG TAB PO STA (11:25)
[2025-08-14] MEDS ORDERED: ALBUTEROL 0.083% NEBU SOLN 3 ML VIAL INH PRN (11:45)
[2025-08-14] MEDS ORDERED: PROCHLORPERAZINE MALEATE 10 MG TAB PO PRN (11:45)
[2025-08-14] MEDS ORDERED: TRIAMCINOLONE ACET 0.5% CR 15 GM TUBE TOP PRN (11:45)
[2025-08-14] MEDS ORDERED: ALBUTEROL HFA 8 GM INHALER INH PRN (11:45)
[2025-08-14] MEDS ORDERED: CYCLOBENZAPRINE HCL 5 MG TAB PO PRN (11:45)
[2025-08-14] MEDS ORDERED: ONDANSETRON INJ 2 MG/ML 2 ML VIAL IV PRN (11:50)
[2025-08-14] MEDS ORDERED: VANCOMYCIN HCL / NSS 1,000 MG/270 ML BAG IV SCH (12:00)
[2025-08-14 12:15] LABS: Appearance Urine Clear (Clear); Bacteria Urine Automated None Seen (None Seen); Cast Urine Automated 0-2 /lpf (0-2); Epithelial Cell Urine Auto 0-2 /hpf (0-2); Glucose Urine UA Negative (Negative); RBC Urine Automated 0-2 /hpf (0-2); WBC Urine Automated 0-5 /hpf (0-5)
--- NOTE | 2025-08-14 13:28 | History & Physical Report ---
Date of Service August 14, 2025 Assessment & Plan (1) Staphylococcus epidermidis bacteremia: Plan: -2/2 blood cultures + for staphylococcus epidermidis -Chemo port appears clean without signs of infection -f/u repeat blood cultures -vanomycin -ID consulted (2) Lung cancer metastatic to brain: Plan: -Pt being Dr. Mclean (3) Malignant pleural effusion: Plan: -left sided -Pt had plans to have out patient drainage -Pulmonary consulted for inpatient evaluation (4) COPD (chronic obstructive pulmonary disease): Plan: -albuterol -Trelegy -supplemental 02 (5) Hypertension: Plan: -norvasc (6) Hyperlipidemia: Plan: -simvastatin Plan Heparin SQ for DVT px History of Present Illness Chief Complaint: +blood cultures Primary Care Provider: Froy Renteria DO Pt is an 85 y/o female with pmh of COPD, lung CA with mets on chemotherapy with infusion port, who presents to ER after having + blood cultures from the 08/12 result with staph epidermidis. Pt was seen on 08/12 in the ER from the cancer clinic after she was found to having worsening SOB to r/o PE. Her CTA at that time was negative for PE, but did show left sided pleural effusion. Pt was discharged with out patient pleural drainage planned. Today she received a call from the hospital that her cultures were + and to come in. She denies any fever or tenderness at her chemo port site. In the ER patient was started on vancomycin and will be admitted for further treatment of staph epidermidis bacteremia. Allergies Allergy/AdvReac Type Severity Reaction Status Date / Time tetanus toxoid, adsorbed Allergy Intermediate LOCALIZED Verified 08/14/25 11:29 SWELLING, ITCHING AND REDNESS AT INJECTION SITE ibuprofen AdvReac Severe BLOODY Verified 08/14/25 11:29 URINE azithromycin AdvReac Intermediate FATIGUE Verified 08/14/25 11:29 levofloxacin AdvReac Intermediate lightheaded Verified 08/14/25 11:29 ness buspirone Allergy Intermediate Altered Uncoded 08/14/25 11:29 sensation--[place] "jaggy" all over Home Medications Medication Instructions Recorded Confirmed Type multivitamin (One-A-Day Essential 1 tab PO QAM 07/01/19 08/14/25 History tablet) coenzyme Q10 200 mg capsule 200 mg PO DAILY #90 caps 08/05/19 08/14/25 Rx nebulizer accessories #1 ea 10/02/23 08/11/25 Rx Oxygen Home #3 L 10/22/23 08/11/25 Rx psyllium husk 3.4 gram/5.4 gram 1 tbsp PO DAILY 03/13/24 08/14/25 History oral powder (Metamucil) calcium 600 mg (as 2 cap PO DAILY 04/01/24 08/14/25 History carbonate)-vitamin D3 12.5 mcg (500 unit) capsule (Calcium with Vit D3) Portable Oxygen #1 ea 04/10/24 08/11/25 Rx albuterol sulfate 90 mcg/actuation 2 puff inhalation QID PRN 08/12/24 08/14/25 Rx aerosol inhaler Shortness Of Breath Or Wheezing #8.5 grams betamethasone dipropionate 0.05 % 1 applic topical BID PRN skin 01/12/25 08/14/25 Rx topical cream irritation #15 grams cyclobenzaprine 5 mg tablet 5 mg PO TID PRN muscle spasm #30 01/12/25 08/14/25 Rx tabs sertraline 25 mg tablet (Zoloft) 25 mg PO DAILY #90 tabs 05/13/25 08/14/25 Rx simvastatin 20 mg tablet 20 mg PO HS #90 tabs 05/13/25 08/14/25 Rx albuterol sulfate 2.5 mg/3 mL 2.5 mg inhalation Q4H PRN sob 07/07/25 08/14/25 History (0.083 %) solution for nebulization ondansetron HCl 8 mg tablet 8 mg PO Q8H PRN N/V 07/07/25 08/14/25 History prochlorperazine maleate 10 mg 10 mg PO Q6H PRN Nausea And 07/07/25 08/14/25 History tablet (Compazine) Vomiting triamcinolone acetonide 0.5 % 1 applic topical BID PRN as 07/07/25 08/14/25 History topical cream directed famotidine 40 mg tablet 40 mg PO QAM 07/13/25 08/14/25 History fluticasone fur. 200 mcg-umeclid 1 inh inhalation QAM 07/13/25 08/14/25 History 62.5 mcg-vilant 25 mcg inhalat.powder (Trelegy Ellipta) oxycodone 5 mg tablet 5 mg PO Q8H PRN pain #15 tabs 07/13/25 08/14/25 Rx tramadol 50 mg tablet 50 - 100 mg PO QID PRN pain 08/12/25 08/14/25 History amlodipine 2.5 mg tablet 2.5 mg PO QAM 08/14/25 08/14/25 History Past Med/Surg History Problem List (Updated 08/14/25 @ 13:23 by Julian Casanova MD) Staphylococcus epidermidis bacteremia Malignant pleural effusion (Acute) Rib pain on left side 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) Cat scratch of left lower leg Rash and nonspecific skin eruption Hypophosphatemia (Acute) Hypomagnesemia (Acute) 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, follows w/ Dr Mclean Chronic hypoxic respiratory failure Anemia Former smoker Quit around 1991 Smoked for 20-30 years prior (does not know specifics) 1 pk/day Hypertension Hyperlipidemia (Chronic) COPD (chronic obstructive pulmonary disease) Asthma (Chronic) uses rescue inhalers prn Acid reflux disease (Chronic) Postmenopausal osteoporosis (Chronic) Anxiety (Chronic) Allergic rhinitis Arthritis (Chronic) H/O diverticulitis of colon (Chronic) Medical History On home O2 2 lpm via [place] Surgical History S/P tonsillectomy and adenoidectomy Port-A-Cath in place (02/19/24) Insertion Access Port with Fluoroscopy(Not Applicable) - Kushal Jordan DO, FACS History of thoracentesis 01/29/24 @ [facility] Status post excision of lipoma S/P cataract extraction bilateral H/O colonoscopy Family History Father , in his 70-80s Diabetes Myocardial infarction Throat cancer Mother , in her 80s Hypertension Stroke Brother Lung cancer Cancer of kidney Daughter Brain cancer Denies family history of Ovarian cancer Prostate cancer Breast cancer Colorectal cancer Social History Smoking Status: Former smoker Tobacco Type: Cigarettes Age Started Using Tobacco: 20; Age Quit Using Tobacco: 52; packs per day: 1; Cigarettes Per Day: 1 PPD x 20 yrs; Second Hand Exposure: No; Do You Dip or Chew Tobacco: No; Hx Alcohol Use: No Hx Substance Use: No Preferred Language: Belarusian Communication Ability: Effective Visual Impairment: Partially Limited Hearing Ability: Normal Copy Writer Required: No Beliefs That Will Affect Care: None marital status: / Current Living Situation: Alone current occupational status: retired 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 Feels Safe at Home: Yes Childhood Exposure to Second-Hand Smoke: Yes Diet: regular caffeine: Yes (coffee, tea occasionally) during the past year weight has: decreased > 10 lbs Dental Care, Regularly: Yes Physical Activity Frequency: Does not Exercise Seatbelt Use: always Sunscreen Use: No Do you think of yourself as: straight/heterosexual Gender Identity: Female Assistive Devices: Oxygen - Continuous and Walker Review of Systems Review of Systems: CONST: Negative for fever, body aches and chills. HENT: Negative for neck pain/stiffness, headache, congestion, sore throat, swelling. EYES: Negative for discharge/pain or vision changes. RESP: Negative for cough/hemoptysis and shortness of breath. CV: Negative chest pain, difficulty breathing, palpitations. ABD: Negative pain, nausea, vomiting. : Negative increase frequency, dysuria, blood in urine or stool. MUSC: Negative for muscle aches, edema. SKIN: Negative rash, lesions/sores. NEURO: Negative headache, dizziness, weakness. Physical Exam Physical Exam: GENERAL APPEARANCE NAD, activity normal for age, well developed/ well nourished, no cyanosis, pallor, or diaphoresis. EYES lids/conjunctiva normal. EARS/NOSE/THROAT Mucous membranes moist, nares normal, lips/teeth normal uvula midline without oral pharyngeal erythema, exudate or swelling TMs normal bilaterally. No lymphangitis/lymphedema. HEAD/NECK normocephalic atraumatic, no facial trauma, neck is supple. RESPIRATORY respiratory effort normal, speaks in full sentences, no tripod position, no accessory muscle use. Lungs clear to auscultation without rhonchi, wheezes, rales CARDIAC Regular rate and rhythm, no edema. ABDOMINAL Soft, ND/NT. No evidence of fluid wave. No pulsatile masses on exam, rebound tenderness, Morales sign or pain over Mcburney's point. MUSCLES/EXTREMITIES No abnormal range of motion, no swelling. SKIN Warm, pink and dry. No rashes, dermatoses, petechiae or lesions. NEUROLOGICAL Speech is clear and appropriate. Normal level of consciousness. Gait and coordination are normal. 5/5 strength in all extremities. PSYCH Normal mood and affect. Judgement/competence is appropriate Results & Data Results & Data Vital Signs (Past 12 Hours) Vital Signs Temp Pulse Pulse Resp BP BP Pulse Ox 08/14/25 12:44 70 14 174/83 H 97 08/14/25 12:33 70 17 97 08/14/25 11:41 84 20 98 08/14/25 11:27 72 20 166/76 H 98 08/14/25 10:17 63 08/14/25 10:15 70 18 96 08/14/25 09:42 36.7 C 82 17 162/88 H 92 O2 Del Method O2 Flow Rate 08/14/25 12:44 Nasal Cannula 3 08/14/25 12:33 Nasal Cannula 3 08/14/25 11:41 08/14/25 11:27 Nasal Cannula 2 08/14/25 10:17 08/14/25 10:15 Nasal Cannula 2 08/14/25 09:42 Nasal Cannula 2 PG Care Time/CCT Total # of Minutes Spent Total Time Spent with Patient: Total time spent is greater than 50% in coordination of care (as documented) at patient's floor/unit and/or counseling patient: Coding Level of Care Code 19863 INT INP/OBS CARE 2/55MIN Diagnoses Staphylococcus epidermidis bacteremia R78.81; B95.7 Lung cancer metastatic to brain C34.90; C79.31 Malignant pleural effusion J91.0 COPD (chronic obstructive pulmonary disease) J44.9 Essential hypertension I10 Hypertension type: essential hypertension Hyperlipidemia E78.5 (5) Hypertension Hypertension type: essential hypertension Qualified Code(s): I10 - Essential (primary) hypertension
[2025-08-14] MEDS ORDERED: ONDANSETRON 4 MG OD TAB PO PRN (15:01)
--- NOTE | 2025-08-14 17:08 | Pharmacy Report ---
Pharmacy PK ABX Note - Date of Service August 14, 2025 - Assessment and Plan Assessment 85 year old F receiving vancomycin for treatment of staph epi (MRSE) bacteremia. Pertinent microbiologic data includes: 08/12 blood culture positive for staph epi (MRSE) in 2/2 bottles (1 culture total). Repeat blood cultures x2 from 08/14 pending. * Patient w/ WBC 6.5, afebrile * Hx lung cancer on chemo and has infusion port Day # 1 of antimicrobial therapy. Plan Vancomycin * Loading dose: 1000 mg IV x 1 (08/14 @1100) * Maintenance dose: 1000 mg IV every 24 hours * Regimen is predicted to achieve target AUC/DOUGLAS of 400-600 mg/L.hr * Random level ordered for: 08/16/25 @0444 Pharmacy will continue to follow and will adjust dose/frequency as necessary. Thank you. Pharmacy has transitioned to AUC monitoring for vancomycin. AUC/DOUGLAS is the preferred PK/PD target and is associated with decreased risk of nephrotoxicity compared to traditional trough targets.
[2025-08-14] MEDS: HEPARIN SOD 5,000 UNIT/0.5 ML VIAL SQ SCH (17:17)
[2025-08-14] MEDS: CALCIUM 600MG + VIT D 400 IU TAB PO SCH (20:41)
[2025-08-14] MEDS: SIMVASTATIN 20 MG TAB PO SCH (20:42)
[2025-08-15 06:23] LABS: Hematocrit (blood only) 26.0 % (37.0-47.0); Hemoglobin 8.8 g/dl (12.0-16.0); Mean Corpuscular Hemoglobin 34.6 pg (25.0-34.0); Mean Corpuscular Volume 102.4 fL (80.0-100.0); Platelet Count 291 K/uL (130-400); RDW Standard Deviation 54.3 fL (36.4-46.3); Red Blood Count 2.54 M/uL (4.20-5.40); White Blood Count 4.74 K/ul (4.8-10.8)
[2025-08-15 06:41] LABS: Anion Gap 5.0 (3-11); Blood Urea Nitrogen 21.0 mg/dl (6-23); Calcium 8.4 mg/dl (8.6-10.3); Carbon Dioxide 28.0 mmol/L (21-32); Chloride 101.0 mmol/L (98-107); Creatinine Clr Calc Pharmacy 40.2 ml/min; Glucose 92.0 mg/dl (70-99(Fasting)); Potassium 4.3 mmol/L (3.5-5.1); Sodium 134.0 mmol/L (136-145)
[2025-08-15] MEDS: PSYLLIUM HUSK 4GM PACKET PO SCH (08:27)
[2025-08-15] MEDS: SERTRALINE HCL 50 MG TABLET PO SCH (08:30)
[2025-08-15] MEDS: MULTIVITAMIN TAB PO SCH (08:31)
[2025-08-15] MEDS: FAMOTIDINE 20 MG TAB PO SCH (08:32)
[2025-08-15] MEDS: FLUTICASONE FUROATE 200MCG 14 PUFFS/INHALER INH SCH (08:32)
[2025-08-15] MEDS: UMECLIDINIUM/VILANTEROL 62.5/25MCG 7 PUFFS/INHALER INH SCH (08:32)
[2025-08-15] MEDS: VANCOMYCIN HCL / NSS 1,000 MG/270 ML BAG IV SCH (08:33)
[2025-08-15] MEDS ORDERED: NON-FORMULARY MEDICATION (Fluticasone-Umeclidin-Vilanter [Trelegy Ellipta] 200-62.5-25 mcg INH SCH (09:00)
--- NOTE | 2025-08-15 09:37 | Hospitalist Progress Note ---
Date of Service August 15, 2025 Assessment & Plan (1) Staphylococcus epidermidis bacteremia: Plan: -2/2 blood cultures + for staphylococcus epidermidis -Chemo port appears clean without signs of infection -f/u repeat blood cultures -vanomycin -ID consulted (2) Lung cancer metastatic to brain: Plan: -Pt being Dr. Mclean (3) Malignant pleural effusion: Plan: -left sided -Pt had plans to have out patient drainage -Pulmonary consulted for inpatient evaluation (4) COPD (chronic obstructive pulmonary disease): Plan: -albuterol -Trelegy -supplemental 02 (5) Hypertension: Plan: -norvasc (6) Hyperlipidemia: Plan: -simvastatin Plan Heparin SQ for DVT px Admission and Anticipated Discharge Date Admission Date: August 14, 2025 Subjective No events overnight. Review of Systems Review of Systems: CONST: Negative for fever, body aches and chills. HENT: Negative for neck pain/stiffness, headache, congestion, sore throat, swelling. EYES: Negative for discharge/pain or vision changes. RESP: Negative for cough/hemoptysis and shortness of breath. CV: Negative chest pain, difficulty breathing, palpitations. ABD: Negative pain, nausea, vomiting. : Negative increase frequency, dysuria, blood in urine or stool. MUSC: Negative for muscle aches, edema. SKIN: Negative rash, lesions/sores. NEURO: Negative headache, dizziness, weakness. Physical Exam 2 Physical Exam: GENERAL APPEARANCE NAD, activity normal for age, well developed/ well nourished, no cyanosis, pallor, or diaphoresis. EYES lids/conjunctiva normal. EARS/NOSE/THROAT Mucous membranes moist, nares normal, lips/teeth normal uvula midline without oral pharyngeal erythema, exudate or swelling TMs normal bilaterally. No lymphangitis/lymphedema. HEAD/NECK normocephalic atraumatic, no facial trauma, neck is supple. RESPIRATORY respiratory effort normal, speaks in full sentences, no tripod position, no accessory muscle use. Lungs clear to auscultation without rhonchi, wheezes, rales CARDIAC Regular rate and rhythm, no edema. ABDOMINAL Soft, ND/NT. No evidence of fluid wave. No pulsatile masses on exam, rebound tenderness, Morales sign or pain over Mcburney's point. MUSCLES/EXTREMITIES No abnormal range of motion, no swelling. SKIN Warm, pink and dry. No rashes, dermatoses, petechiae or lesions. NEUROLOGICAL Speech is clear and appropriate. Normal level of consciousness. Gait and coordination are normal. 5/5 strength in all extremities. PSYCH Normal mood and affect. Judgement/competence is appropriate Results & Data Results & Data Vital Signs (Past 12 Hours) Vital Signs Temp Pulse Pulse Pulse Resp BP Pulse Ox 08/15/25 09:21 08/15/25 08:06 36.6 C 78 18 143/71 H 96 08/15/25 07:09 61 08/15/25 04:00 36.5 C 75 18 148/71 H 95 08/15/25 02:10 08/14/25 23:15 36.5 C 66 18 148/73 H 92 08/14/25 21:58 78 O2 Del Method O2 Flow Rate 08/15/25 09:21 Nasal Cannula 2 08/15/25 08:06 Nasal Cannula 2 08/15/25 07:09 08/15/25 04:00 Room Air 08/15/25 02:10 Nasal Cannula 2 08/14/25 23:15 Nasal Cannula 2 08/14/25 21:58 PG Care Time/CCT Total # of Minutes Spent Total Time Spent with Patient: Total time spent is greater than 50% in coordination of care (as documented) at patient's floor/unit and/or counseling patient: Coding Level of Care Code 85364 SUB INP/OBS CARE MIN Diagnoses Staphylococcus epidermidis bacteremia R78.81; B95.7 Lung cancer metastatic to brain C34.90; C79.31 Malignant pleural effusion J91.0 COPD (chronic obstructive pulmonary disease) J44.9 Essential hypertension I10 Hypertension type: essential hypertension Hyperlipidemia E78.5 (5) Hypertension Hypertension type: essential hypertension Qualified Code(s): I10 - Essential (primary) hypertension
--- NOTE | 2025-08-15 10:57 | Pulmonary Consultation ---
Date of Consultation August 15, 2025 Assessment & Plan (1) Malignant pleural effusion: (2) Extensive stage primary small cell carcinoma of lung: (3) PATTERSON (dyspnea on exertion): Plan Patient has a known malignant left-sided pleural effusion. This was diagnosed in 2013. Since that time she has had 2 thoracentesis. She says that she has felt significantly better after thoracentesis was performed and less dyspnea on exertion afterwards. The patient is not on anticoagulation, antiplatelets. She does not have significant thrombocytopenia or uremia. She is wanting to have a thoracentesis performed today for improvement of her dyspnea on exertion. The patient is undergoing radiation therapy for brain metastases and is on topotecan. Not having fevers or chills. Has managed to put on a little bit of weight recently. Did have known blood cultures positive from her recent visit to the hospital on for which she is being treated with antibiotics. We will go ahead and perform a thoracentesis today. Will obtain a chest x-ray afterwards. Will obtain chest x-ray afterwards. If pleural effusion continues to develop rapidly and she is requiring more frequent thoracentesis then she may be a candidate for a PleurX catheter in the future. I do not believe it is indicated at this time however. Case was discussed extensively with patient at bedside, all questions were addressed. Case was discussed with bedside RN. Case was discussed extensively with hospitalist. All imaging was independently reviewed by myself. Thank you for this consult. We will continue to follow along with you. Please let us know if you have any questions. 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 The patient underwent chemo therapy and is currently on treatment with topotecan and getting brain radiation. The patient has a history of COPD/asthma overlap with a previous tobacco use history but has not smoked since 1991. She has a known malignant pleural effusion on the left and has undergone thoracentesis in the past with improvement in her dyspnea. The patient has previously followed with [facility] and was last seen in January 2025. The patient presented to the emergency department with complaints of positive blood cultures with staph epi that were obtained on 08/12/2025 when she initially presented with shortness of breath. She was also complaining of shortness of breath that was worse with activity. She had a recent CT angio that did not show evidence of PE however left-sided pleural effusion was appreciated and slightly larger in size compared to previously. Progression of her known metastatic disease was also appreciated with increasing adenopathy of the mediastinum, left hilum and upper abdomen. The lung mass had also increased in size. Pulmonary has been consulted for pleural effusion. When examined the patient she is resting comfortably sitting at the edge of the bed and having her breakfast. No family is at bedside. The patient states that she has become more dyspneic on exertion recently. She normally does not have to use her home oxygen but feels as though she has been using this more frequently recently. She has not had any new cough or phlegm production. No wheezing. She can recall that the last time she had a thoracentesis performed she did have improvement in her dyspnea after this. She cannot tell me exactly when that was. When examining her I performed a [id number] ultrasound which showed a small to moderate left-sided pleural effusion. The patient is not on any antiplatelets or anticoagulation. She is wanting to have a thoracentesis performed today if possible. Past medical history: Extensive small cell lung carcinoma diagnosed in 2023, perihilar mass with known metastases to the pleura, liver, brain and bones. -Treated with carboplatin, etoposide and atezolizumab in 2023 and remained on maintenance with atezolizumab. This was switched to Zepzelca due to disease progression in 2023. This was again switched to topotecan in May 2025 due to continued disease progression. -Now on malignant effusion, status post thoracentesis x 2 with improvement in dyspnea. COPD asthma overlap Chronic hypoxic respite failure Previous tobacco use (quit smoking in 1991, smoked 1 pack/day for 20 to 30 years) Allergic rhinitis Acid reflux disease Allergies Allergy/AdvReac Type Severity Reaction Status Date / Time tetanus toxoid, adsorbed Allergy Intermediate LOCALIZED Verified 08/14/25 11:29 SWELLING, ITCHING AND REDNESS AT INJECTION SITE ibuprofen AdvReac Severe BLOODY Verified 08/14/25 11:29 URINE azithromycin AdvReac Intermediate FATIGUE Verified 08/14/25 11:29 levofloxacin AdvReac Intermediate lightheaded Verified 08/14/25 11:29 ness buspirone Allergy Intermediate Altered Uncoded 08/14/25 11:29 sensation--[place] "jaggy" all over Home Medications Medication Instructions Recorded Confirmed Type multivitamin (One-A-Day Essential 1 tab PO QAM 07/01/19 08/14/25 History tablet) coenzyme Q10 200 mg capsule 200 mg PO DAILY #90 caps 08/05/19 08/14/25 Rx nebulizer accessories #1 ea 10/02/23 08/11/25 Rx Oxygen Home #3 L 10/22/23 08/11/25 Rx psyllium husk 3.4 gram/5.4 gram 1 tbsp PO DAILY 03/13/24 08/14/25 History oral powder (Metamucil) calcium 600 mg (as 2 cap PO DAILY 04/01/24 08/14/25 History carbonate)-vitamin D3 12.5 mcg (500 unit) capsule (Calcium with Vit D3) Portable Oxygen #1 ea 04/10/24 08/11/25 Rx albuterol sulfate 90 mcg/actuation 2 puff inhalation QID PRN 08/12/24 08/14/25 Rx aerosol inhaler Shortness Of Breath Or Wheezing #8.5 grams betamethasone dipropionate 0.05 % 1 applic topical BID PRN skin 01/12/25 08/14/25 Rx topical cream irritation #15 grams cyclobenzaprine 5 mg tablet 5 mg PO TID PRN muscle spasm #30 01/12/25 08/14/25 Rx tabs sertraline 25 mg tablet (Zoloft) 25 mg PO DAILY #90 tabs 05/13/25 08/14/25 Rx simvastatin 20 mg tablet 20 mg PO HS #90 tabs 05/13/25 08/14/25 Rx albuterol sulfate 2.5 mg/3 mL 2.5 mg inhalation Q4H PRN sob 07/07/25 08/14/25 History (0.083 %) solution for nebulization ondansetron HCl 8 mg tablet 8 mg PO Q8H PRN N/V 07/07/25 08/14/25 History prochlorperazine maleate 10 mg 10 mg PO Q6H PRN Nausea And 07/07/25 08/14/25 History tablet (Compazine) Vomiting triamcinolone acetonide 0.5 % 1 applic topical BID PRN as 07/07/25 08/14/25 History topical cream directed famotidine 40 mg tablet 40 mg PO QAM 07/13/25 08/14/25 History fluticasone fur. 200 mcg-umeclid 1 inh inhalation QAM 07/13/25 08/14/25 History 62.5 mcg-vilant 25 mcg inhalat.powder (Trelegy Ellipta) oxycodone 5 mg tablet 5 mg PO Q8H PRN pain #15 tabs 07/13/25 08/14/25 Rx tramadol 50 mg tablet 50 - 100 mg PO QID PRN pain 08/12/25 08/14/25 History amlodipine 2.5 mg tablet 2.5 mg PO QAM 08/14/25 08/14/25 History Patient History Medical History On home O2 2 lpm via nm Surgical History S/P tonsillectomy and adenoidectomy Port-A-Cath in place (02/19/24) Insertion Access Port with Fluoroscopy(Not Applicable) - Kushal Jordan, , FACS History of thoracentesis 01/29/24 @ [facility] Status post excision of lipoma S/P cataract extraction bilateral H/O colonoscopy Family History Father , in his 70-80s Diabetes Myocardial infarction Throat cancer Mother , in her 80s Hypertension Stroke Brother Lung cancer Cancer of kidney Daughter Brain cancer Denies family history of Ovarian cancer Prostate cancer Breast cancer Colorectal cancer Social History Smoking Status: Former smoker Tobacco Type: Cigarettes Age Started Using Tobacco: 20; Age Quit Using Tobacco: 52; packs per day: 1; Cigarettes Per Day: 1 PPD x 20 yrs; Second Hand Exposure: No; Do You Dip or Chew Tobacco: No; Hx Alcohol Use: No Hx Substance Use: Yes Last Used Substance: Unknown Preferred Language: [place] Leonean Communication Ability: Effective Visual Impairment: Partially Limited Hearing Ability: Normal Physical Education Professor Required: No Beliefs That Will Affect Care: None marital status: / Current Living Situation: Alone current occupational status: retired current occupation: Used to work at a [employer] How many Children do You have: 1 How many Children do You have Comment: Only child is . Feels Safe at Home: Yes Childhood Exposure to Second-Hand Smoke: Yes Diet: regular caffeine: Yes (coffee, tea occasionally) during the past year weight has: decreased > 10 lbs Dental Care, Regularly: Yes Physical Activity Frequency: Does not Exercise Seatbelt Use: always Sunscreen Use: No Do you think of yourself as: straight/heterosexual Gender Identity: Female Assistive Devices: None Review of Systems Review of Systems: A 12 point review of systems was obtained in detail. Negative except as noted in HPI. Physical Exam Physical Exam: Physical examination: General: Well-appearing, well-nourished and not in acute distress. HEENT: Normocephalic, atraumatic. Extraocular movements intact. Sclera are nonicteric. No JVD appreciated. Skin: Warm and dry. No rashes appreciated. No jaundice appreciated. Lymphatic: No pathologic/enlarged lymph nodes palpated in the neck, axilla. Cardiovascular: Heart is a regular rate and rhythm, no murmurs appreciated on my exam. No significant lower extremity edema. Lungs: Clear bilaterally, no wheezing appreciated. No crackles. Nontachypneic. Resting comfortably on nasal cannula. [id number] ultrasound shows small to moderate left-sided pleural effusion. Abdomen: Nondistended, nontender to palpation. No masses appreciated. Musculoskeletal: Normal muscle mass and tone. No gross joint deformity abnormalities. No effusions appreciated. Neurologic: Awake and alert, oriented. CN II through XII are grossly intact. Speech is fluent. Nonfocal exam. Psychiatric: Appropriate cooperative during my exam. Results & Data Results & Data Vital Signs (Past 12 Hours) Vital Signs Temp Pulse Pulse Pulse Resp BP Pulse Ox 08/15/25 09:21 08/15/25 08:06 36.6 C 78 18 143/71 H 96 08/15/25 07:09 61 08/15/25 04:00 36.5 C 75 18 148/71 H 95 08/15/25 02:10 08/14/25 23:15 36.5 C 66 18 148/73 H 92 O2 Del Method O2 Flow Rate 08/15/25 09:21 Nasal Cannula 2 08/15/25 08:06 Nasal Cannula 2 08/15/25 07:09 08/15/25 04:00 Room Air 08/15/25 02:10 Nasal Cannula 2 08/14/25 23:15 Nasal Cannula 2 Laboratory Results Mild chronic anemia. Platelets are 291. No significant uremia. Diagnostic Findings [id number] ultrasound performed, there is a small to moderate left-sided pleural effusion. Imaging of the chest was reviewed, pleural effusion has increased lightly in size. Disease progression appreciated of her known extensive small cell carcinoma. PG Care Time/CCT Total # of Minutes Spent Total Time Spent with Patient: Total time spent is greater than 50% in coordination of care (as documented) at patient's floor/unit and/or counseling patient: [place] [address] IN/OBS CONSULT LVL 4,60M Patient Type New History Detailed Exam Detailed Medical Decision Making Moderate Complexity Diagnoses Malignant pleural effusion J91.0 Extensive stage primary small cell carcinoma of lung C34.90 PATTERSON (dyspnea on exertion) R06.09
--- NOTE | 2025-08-15 11:38 | Procedure Note ---
Procedure Note Date of Service August 15, 2025 Procedure: Diagnostic therapeutic ultrasound-guided catheter thoracentesis Parts Department Manager: Dr. Libertad Bowen Indication: Pleural effusion Consent: Signed by patient and verified with timeout prior to procedure Anesthesia: 1% lidocaine without epinephrine local. Procedure: Consent was verified and timeout performed. Appropriate imaging studies were reviewed prior to the procedure. Patient was placed in a seated position and limited thoracic ultrasound was perf ormed of the left chest. Appropriate site above the diaphragm for thoracentesis was selected. The skin was prepped and draped in normal sterile fashion. Lidocaine was used for local analgesia. Fluid was aspirated via the finder needle. A small skin bandar was made with the scalpel and the catheter over the needle apparatus was advanced over the rib into the pleural space. Using the syringe one-way valve system, a total of 500 mL's of clear yellow fluid was removed. Procedure was terminated due to unable to aspirate further fluid. The catheter was removed and observed to be intact. A sterile dressing was applied. Post procedure chest x-ray was ordered. Fluid was sent for labs, culture and cytology. Complications: None Blood loss: Negligible [facility] [place] Codes (Charges) Pulmonary/Thoracic Procedure 1: Pulmonary and Thoracic: 65599 Thoracentesis w/o imaging Coding CPT Codes Pulmonary/Thoracic - Pulmonary and Thoracic: 53547 Thoracentesis w/o imaging ([id number]) Additional Codes Date of Service (PG.SURGERY)
[2025-08-15 12:16] LABS: Total Protein 5.6 gm/dl (6.0-8.3)
--- NOTE | 2025-08-15 12:28 | Electrocardiogram Report ---
Test Reason : Blood Pressure : */* mmHG Vent. Rate : 64 BPM Atrial Rate : 64 BPM P-R Int : 146 ms QRS Dur : 82 ms QT Int : 370 ms P-R-T Axes : 84 56 86 degrees QTcB Int : 381 ms Normal sinus rhythm Septal infarct , age undetermined Abnormal ECG When compared with ECG of 12-Aug-2025 16:56, T wave inversion now evident in Lateral leads Confirmed by Roxanne Waite (Ania) on 08/15/2025 12:28:06 PM Referred By: REFERRED SELF Confirmed By: Roxanne Waite
--- NOTE | 2025-08-15 12:40 | XRay Report ---
HISTORY: Postthoracentesis. TECHNIQUE: Portable AP radiograph of the chest. COMPARISON: Chest radiograph dated 08/14/2025. FINDINGS: Right chest Mediport with catheter tip in the SVC. air sampling and monitoring leads overlie the chest. No visible pneumothorax following thoracentesis. Small left pleural effusion has decreased in size. Improved aeration of the left lung base. Clear right lung. Normal heart size. Left-sided aortic arch. Midline trachea. No acute osseous abnormality. Left posterior lateral rib fractures chronic and unchanged. IMPRESSION: 1. No visible pneumothorax following thoracentesis. Interval improvement in left pleural effusion and basilar airspace opacity. 2. Additional findings as above. Electronically signed by Randy Taylor 08-15-2025 12:40 PM
[2025-08-15 12:44] LABS: Appearance Pleural Fluid Hazy; Color Pleural Fluid Yellow; RBC Pleural Fluid Auto < 2000 /uL; Source Pleural Fluid Left Lung; WBC Pleural Fluid Auto 906 /uL
[2025-08-15 12:47] LABS: Lymphocytes, Fluid 80 %; Mono,Macrophage,Mesothelial 10 %; Neutrophils, Fluid 10 %
[2025-08-15] MEDS: DOCUSATE SODIUM 100 MG CAP PO PRN (18:32)
[2025-08-15] MEDS: ACETAMINOPHEN 325 MG TAB PO PRN (20:34)
[2025-08-15] MEDS: SODIUM CHLORIDE 0.9% 1,000 ML IV SCH (20:50)
[2025-08-16 03:07] VITALS: O2SAT 97
[2025-08-16 05:08] LABS: Hematocrit (blood only) 27.7 % (37.0-47.0); Hemoglobin 8.9 g/dl (12.0-16.0); Mean Corpuscular Hemoglobin 33.0 pg (25.0-34.0); Mean Corpuscular Volume 102.6 fL (80.0-100.0); Platelet Count 325 K/uL (130-400); RDW Standard Deviation 56.0 fL (36.4-46.3); Red Blood Count 2.70 M/uL (4.20-5.40); White Blood Count 5.51 K/ul (4.8-10.8)
[2025-08-16 05:25] LABS: Anion Gap 5.0 (3-11); Blood Urea Nitrogen 18.0 mg/dl (6-23); Calcium 9.2 mg/dl (8.6-10.3); Carbon Dioxide 30.0 mmol/L (21-32); Chloride 102.0 mmol/L (98-107); Creatinine Clr Calc Pharmacy 45.1 ml/min; Glucose 95.0 mg/dl (70-99(Fasting)); Potassium 4.3 mmol/L (3.5-5.1); Sodium 137.0 mmol/L (136-145)
[2025-08-16] MEDS ORDERED: VANCOMYCIN LEVEL ONE (08:00)
[2025-08-16] MEDS: VANCOMYCIN 750 MG in SODIUM CHLORIDE 0.9% 250 ML IV SCH (08:45)
[2025-08-16] MEDS: DOCUSATE SODIUM/SENNA 50/8.6MG TAB PO SCH (09:39)
--- NOTE | 2025-08-16 10:30 | Pharmacy Report ---
Pharmacy PK ABX Note - Date of Service August 16, 2025 - Assessment and Plan Assessment 08/16: Day # 3 vancomycin * Vancomycin level drawn today was 7.3mcg/mL which extrapolates to a subtherapeutic AUC. The maintenance dose of vancomycin was increased. * Repeat blood cultures from 08/14 are no growth to date x 2 * thoracentesis performed 08/15--cultures from this are pending. * Renal function stable and at baseline, afebrile, no leukocytosis. 08/14: 85 year old F receiving vancomycin for treatment of staph epi (MRSE) bacteremia. Pertinent microbiologic data includes: 08/12 blood culture positive for staph epi (MRSE) in 2/2 bottles (1 culture total). Repeat blood cultures x2 from 08/14 pending. * Patient w/ WBC 6.5, afebrile * Hx lung cancer on chemo and has infusion port Plan Vancomycin * vancomycin level drawn this morning was 7.3mcg/mL which extrapolates to an AUC of 361 mg/L.hr. * Increased maintenance dose to: 750mg iv q 12 hour * Regimen is predicted to achieve target AUC/DOUGLAS of 400-600 mg/L.hr * Random level ordered for: 08/18/25 with morning labs. Pharmacy will continue to follow and will adjust dose/frequency as necessary. Thank you. Pharmacy has transitioned to AUC monitoring for vancomycin. AUC/DOUGLAS is the preferred PK/PD target and is associated with decreased risk of nephrotoxicity compared to traditional trough targets.
--- NOTE | 2025-08-16 15:06 | XRay Report ---
XR chest 2V PA/lateral CLINICAL HISTORY: pleural effusion COMPARISON STUDY: 08/15/2025 FINDINGS: Stable right chest port. Heart size and pulmonary vasculature are normal. Stable hyperexpan ded lungs. Stable trace left pleural effusion. Otherwise the lungs remain aerated. Grossly stable few pulmonary nodules. IMPRESSION: Stable trace left pleural effusion. ACT 112: Negative or not required by law. Electronically signed by: Kushal Contreras M.D. 08/16/2025 3:05 PM
--- NOTE | 2025-08-16 15:47 | Discharge Summary ---
Discharge Summary Date of Service August 16, 2025 Principal Dx & Hospital Course #1 = Principal Diagnosis (1) Staphylococcus epidermidis bacteremia: -2/2 blood cultures + for staphylococcus epidermidis -Chemo port appears clean without signs of infection -f/u repeat blood cultures -vanomycin -ID consulted (2) Lung cancer metastatic to brain: -Pt being Dr. Mclean (3) Malignant pleural effusion: -left sided -Pt had plans to have out patient drainage -Pulmonary consulted for inpatient evaluation (4) COPD (chronic obstructive pulmonary disease): -albuterol -Trelegy -supplemental 02 (5) Hypertension: -norvasc (6) Hyperlipidemia: -simvastatin Plan Heparin SQ for DVT px Admission HPI Per Admitting Provider Pt is an 85 y/o female with pmh of COPD, lung CA with mets on chemotherapy with infusion port, who presents to ER after having + blood cultures from the 08/12 result with staph epidermidis. Pt was seen on 08/12 in the ER from the cancer clinic after she was found to having worsening SOB to r/o PE. Her CTA at that time was negative for PE, but did show left sided pleural effusion. Pt was discharged with out patient pleural drainage planned. Today she received a call from the hospital that her cultures were + and to come in. She denies any fever or tenderness at her chemo port site. In the ER patient was started on vancomycin and will be admitted for further treatment of staph epidermidis bacteremia. Discharge Plan Discharge Items Patient Disposition: Home - Self-Care Reason For Visit: +BLOOD CULTURES Discharge Diagnosis: repeat blood cultures were clean Condition on Discharge: Good Activity: Resume your previous activity Non-emergency contact: Primary Care Provider Call non-emergency contact if: you have any medication questions Follow-up/Referrals: Froy Renteria DO [Primary Care Provider] - Diet: Regular Addtl Attending Provider Instructions: Followup with PCP in 1-2 weeks. Continue to followup with cancer center. If drainage reoccurs, may consider repeat drain as an outpatient. Pending Studies at Discharge: No Stand-Alone Forms: My Notif[employer], Smoking Cessation Medications and DC Order Prescriptions: Continued albuterol sulfate 2.5 mg /3 mL (0.083 %) solution for nebulization 2.5 mg inhalation Q4H PRN (Reason: sob) triamcinolone acetonide 0.5 % cream 1 applic topical BID PRN (Reason: as directed) ondansetron HCl 8 mg tablet 8 mg PO Q8H PRN (Reason: N/V) prochlorperazine maleate [Compazine] 10 mg tablet 10 mg PO Q6H PRN (Reason: Nausea And Vomiting) multivitamin [One-A-Day Essential] tablet 1 tab PO QAM (DME) nebulizer accessories Kit See Rx Instructions .Route Qty: 1 0RF Rx Instructions: As directed (DME) Oxygen Home Liters Per Minute See Rx Instructions .ROUTE .MEDSUPPLY Qty: 3 0RF Rx Instructions: 3 L/min via nasal cannula at all times. Assess for portability. Length of need 99 years. coenzyme Q10 200 mg capsule 200 mg PO DAILY Qty: 90 3RF calcium carbonate-vitamin D3 [Calcium 600 with Vitamin D3] 600 mg-12.5 mcg (500 unit) capsule 2 cap PO DAILY sertraline [Zoloft] 25 mg tablet 25 mg PO DAILY Qty: 90 2RF simvastatin 20 mg tablet 20 mg PO HS Qty: 90 3RF (DME) Portable Oxygen Misc See Rx Instructions .Route Qty: 1 0RF Rx Instructions: Portable oxygen at 3lpm via nc all the time with POC JESS-99 cyclobenzaprine 5 mg tablet 5 mg PO TID PRN (Reason: muscle spasm) Qty: 30 0RF betamethasone dipropionate 0.05 % cream 1 applic topical BID PRN (Reason: skin irritation) Qty: 15 1RF albuterol sulfate 90 mcg/actuation HFA aerosol inhaler 2 puff INHALATION QID PRN (Reason: Shortness Of Breath Or Wheezing) Qty: 8.5 3RF amlodipine 2.5 mg tablet 2.5 mg PO QAM Metamucil 3.4 gram/5.4 gram Powder 1 tbsp PO DAILY Rx Instructions: mix into at least 8 oz of water or juice before administering famotidine 40 mg tablet 40 mg PO QAM Trelegy Ellipta 200-62.5-25 mcg blister with device 1 inh inhalation QAM oxycodone 5 mg tablet 5 mg PO Q8H PRN (Reason: pain) Qty: 15 0RF tramadol 50 mg tablet 50 - 100 mg PO QID PRN (Reason: pain) Rx Instructions: 1-2 tabs orally four times daily PRN Discharge Orders: Discharge Order (Routine); Ordered 08/16/25 Ordered By: Marcus Hand Admission Data Admit Date/Time: 08/14/25 12:24 Attending Provider: Marcus Hand Admit Provider: Julian Casanova Primary Care Provider: Froy Renteria Other Providers: Julian Casanova; Libertad Bowen; Arely Reid; Yue Frausto; Malina Solorio; Elan Miller; Valeria Man; Yari Barahona Hospital Stay Data Consultations 08/14/25 11:25 ED Decision to Admit Stat 08/14/25 13:07 Consult Pulmonology Routine 08/16/25 09:29 Consult Infectious Diseases Routine Diagnostic Imagining Performed 08/15/25 08:10 US point of care ultrasound Urgent Pending Results Patient Have Any Pending Studies at Discharge: No Discharge Instructions Given to Patient (Per Discharging Provider) Followup with PCP in 1-2 weeks. Continue to followup with cancer center. If drainage reoccurs, may consider repeat drain as an outpatient. Coding Diagnoses Staphylococcus epidermidis bacteremia R78.81; B95.7 Lung cancer metastatic to brain C34.90; C79.31 Malignant pleural effusion J91.0 COPD (chronic obstructive pulmonary disease) J44.9 Essential hypertension I10 Hypertension type: essential hypertension Hyperlipidemia E78.5
[2025-08-16 15:59] VITALS: BP 175/82; PULSE 75; RESP 18; TEMP 98.2
[2025-08-16] MEDS: HEPARIN 100 UNIT/ML 5ML FLUSH ONE (16:13)
== END 2025-08-16 16:43 | disposition home or self-care (01) | DRG 872 ==
LOC: ED 09:39 → 2N 12:24 → SUATTDRO 12:24 → 2N 16:27

== ENCOUNTER 2025-10-28 13:41 | Inpatient (IN) ==
--- NOTE | 2025-10-28 13:57 | Emergency Department Note ---
History of Present Illness General Chief complaint: Shortness of Breath/Dyspnea Stated complaint: SOB, REF BY CANCER CENTER Time Seen by Provider: 10/28/25 13:56 History of Present Illness This is an 85-year-old female who presents to the emergency department via private vehicle with complaints of "dyspnea, referred by cancer center". Patient notes history of small cell lung cancer, left side with recurrent left pleural effusion. She notes last thoracentesis was in August. She denies any recent illness. No fevers or chills. No nausea or vomiting. No chest pain. The patient feels like there is fluid returning on the left side and believes she may require repeat thoracentesis. Home Medications Medication Instructions Recorded Confirmed Type multivitamin (One-A-Day Essential 1 tab PO QAM 07/01/19 10/28/25 History tablet) coenzyme Q10 200 mg capsule 200 mg PO DAILY #90 caps 08/05/19 10/28/25 Rx nebulizer accessories #1 ea 10/02/23 08/23/25 Rx Oxygen Home #3 L 10/22/23 08/23/25 Rx psyllium husk 3.4 gram/5.4 gram 1 tbsp PO DAILY 03/13/24 10/28/25 History oral powder (Metamucil) calcium 600 mg (as 2 cap PO DAILY 04/01/24 10/28/25 History carbonate)-vitamin D3 12.5 mcg (500 unit) capsule (Calcium with Vit D3) Portable Oxygen #1 ea 04/10/24 08/23/25 Rx albuterol sulfate 90 mcg/actuation 2 puff inhalation QID PRN 08/12/24 10/28/25 Rx aerosol inhaler Shortness Of Breath Or Wheezing #8.5 grams betamethasone dipropionate 0.05 % 1 applic topical BID PRN skin 01/12/25 10/28/25 Rx topical cream irritation #15 grams cyclobenzaprine 5 mg tablet 5 mg PO TID PRN muscle spasm #30 01/12/25 10/28/25 Rx tabs simvastatin 20 mg tablet 20 mg PO HS #90 tabs 05/13/25 10/28/25 Rx albuterol sulfate 2.5 mg/3 mL 2.5 mg inhalation Q4H PRN sob 07/07/25 10/28/25 History (0.083 %) solution for nebulization ondansetron HCl 8 mg tablet 8 mg PO Q8H PRN N/V 07/07/25 10/28/25 History prochlorperazine maleate 10 mg 10 mg PO Q6H PRN Nausea And 07/07/25 10/28/25 History tablet (Compazine) Vomiting triamcinolone acetonide 0.5 % 1 applic topical BID PRN as 07/07/25 10/28/25 History topical cream directed famotidine 40 mg tablet 40 mg PO QAM 07/13/25 10/28/25 History tramadol 50 mg tablet 50 - 100 mg PO QID PRN pain 08/12/25 10/28/25 History amlodipine 2.5 mg tablet 2.5 mg PO QAM 08/14/25 10/28/25 History magnesium oxide 400 mg PO DAILY #30 tabs 08/18/25 10/28/25 Rx meclizine 12.5 mg tablet 12.5 mg PO TID PRN dizziness #15 08/19/25 10/28/25 Rx tabs sertraline 25 mg tablet (Zoloft) 50 mg PO QAM 08/23/25 10/28/25 History diphenoxylate-atropine 2.5 1 tab PO QID PRN Diarrhea 09/24/25 10/28/25 History mg-0.025 mg tablet fluticasone fur. 200 mcg-umeclid 1 inh inhalation QAM #60 ea 09/28/25 10/28/25 Rx 62.5 mcg-vilant 25 mcg inhalat.powder (Trelegy Ellipta) Allergies Allergy/AdvReac Type Severity Reaction Status Date / Time buspirone Allergy Intermediate Altered Verified 10/28/25 15:58 sensation--[place] "jaggy" all over tetanus toxoid, adsorbed Allergy Intermediate LOCALIZED Verified 10/28/25 15:58 SWELLING, ITCHING AND REDNESS AT INJECTION SITE ibuprofen AdvReac Severe BLOODY Verified 10/28/25 15:58 URINE azithromycin AdvReac Intermediate FATIGUE Verified 10/28/25 15:58 levofloxacin AdvReac Intermediate lightheaded Verified 10/28/25 15:58 ness Past Med/Surg History Problem List (Updated 10/28/25 @ 21:33 by Emanuel Smart PA-C) Pneumonia (Acute) Acute pulmonary embolism (Acute) Recurrent left pleural effusion Chronic respiratory failure with hypoxia, on home O2 therapy Small cell lung cancer in adult Acute hyponatremia (Acute) Hypomagnesemia (Acute) Generalized weakness (Acute) PATTERSON (dyspnea on exertion) Extensive stage primary small cell carcinoma of lung History of lung cancer (Acute) Blood culture positive (Acute) Staphylococcus epidermidis bacteremia Malignant pleural effusion (Acute) Rib pain on left side 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) Cat scratch of left lower leg Rash and nonspecific skin eruption Hypophosphatemia (Acute) Hypomagnesemia (Acute) 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, follows w/ Dr Mclean Chronic hypoxic respiratory failure Anemia (Acute) Former smoker Quit around 1991 Smoked for 20-30 years prior (does not know specifics) 1 pk/day Hypertension Hyperlipidemia (Chronic) COPD (chronic obstructive pulmonary disease) Asthma (Chronic) uses rescue inhalers prn Acid reflux disease (Chronic) Postmenopausal osteoporosis (Chronic) Anxiety (Chronic) Allergic rhinitis Arthritis (Chronic) H/O diverticulitis of colon (Chronic) Medical History On home O2 2 lpm via al Surgical History S/P tonsillectomy and adenoidectomy Port-A-Cath in place (02/19/24) Insertion Access Port with Fluoroscopy(Not Applicable) - Kushal Jordan DO, FACS History of thoracentesis 01/29/24 @ [facility] Status post excision of lipoma S/P cataract extraction bilateral H/O colonoscopy Family History Father Diabetes Myocardial infarction Throat cancer Mother Hypertension Stroke Brother Lung cancer Cancer of kidney Daughter Brain cancer Denies family history of Ovarian cancer Prostate cancer Breast cancer Colorectal cancer Social History Smoking Status: Former smoker Tobacco Type: Cigarettes Age Started Using Tobacco: 20; Age Quit Using Tobacco: 52; packs per day: 1; Cigarettes Per Day: 1 PPD x 20 yrs; Second Hand Exposure: No; Do You Dip or Chew Tobacco: No; Hx Alcohol Use: No Hx Substance Use: No (no change from prior admission) Preferred Language: Macedonian Communication Ability: Effective Visual Impairment: No Limitations Hearing Ability: Normal Prosthetic Assistant Required: No Beliefs That Will Affect Care: None marital status: / Current Living Situation: Alone Current Living Situation Comment: no change from prior admission current occupational status: retired current occupation: Used to work at a [employer] How many Children do You have: 1 How many Children do You have Comment: Only child is . Feels Safe at Home: Yes Childhood Exposure to Second-Hand Smoke: Yes Diet: regular caffeine: Yes (coffee x 1-3 cup/day, tea occasionally) during the past year weight has: decreased > 10 lbs Dental Care, Regularly: Yes Physical Activity Frequency: Does not Exercise Seatbelt Use: always Sunscreen Use: No Do you think of yourself as: straight/heterosexual Gender Identity: Female Assistive Devices: Glasses and Oxygen - Continuous Review of Systems A total of 10 systems reviewed and were otherwise negative Physical Exam Vital Signs Vital Signs - 24 hr 10/28/25 13:43 10/28/25 14:00 10/28/25 14:02 Temperature 36.8 C Temperature Source Temporal Artery Scan Pulse Rate 82 60 Pulse Rate [Right Finger] Pulse Rate from SpO2 Sensor 66 Respiratory Rate 22 23 Respiratory Effort / Characteristics Spontaneous Short of Breath Respiratory Depth Respiratory Pattern Blood Pressure 149/81 H 162/74 H Blood Pressure [Left Arm] Blood Pressure Mean 103 103 Blood Pressure Mean [Left Arm] Pulse Oximetry 100 Oxygen Delivery Method Nasal Cannula Nasal Cannula Oxygen Flow Rate 2 2 Sepsis Recent Fever Within 48 Hours No Sepsis New/Unexplained Change in Mental Status N/A Sepsis Action Taken by Nursing No Action Required 10/28/25 14:22 10/28/25 14:22 10/28/25 14:22 Temperature Temperature Source Pulse Rate Pulse Rate [Right Finger] Pulse Rate from SpO2 Sensor Respiratory Rate Respiratory Effort / Characteristics Non-Labored Spontaneous Respiratory Depth Normal Respiratory Pattern Regular Blood Pressure Blood Pressure [Left Arm] Blood Pressure Mean Blood Pressure Mean [Left Arm] Pulse Oximetry 97 97 Oxygen Delivery Method Nasal Cannula Nasal Cannula Nasal Cannula Oxygen Flow Rate 2 2 2 Sepsis Recent Fever Within 48 Hours Sepsis New/Unexplained Change in Mental Status Sepsis Action Taken by Nursing 10/28/25 15:31 10/28/25 15:31 10/28/25 15:42 Temperature Temperature Source Pulse Rate 65 Pulse Rate [Right Finger] Pulse Rate from SpO2 Sensor 65 Respiratory Rate 15 Respiratory Effort / Characteristics Respiratory Depth Respiratory Pattern Blood Pressure 154/70 H 154/70 H Blood Pressure [Left Arm] Blood Pressure Mean 121 121 Blood Pressure Mean [Left Arm] Pulse Oximetry 90 Oxygen Delivery Method Oxygen Flow Rate Sepsis Recent Fever Within 48 Hours Sepsis New/Unexplained Change in Mental Status Sepsis Action Taken by Nursing 10/28/25 15:51 10/28/25 16:00 10/28/25 16:00 Temperature Temperature Source Pulse Rate 67 72 Pulse Rate [Right Finger] Pulse Rate from SpO2 Sensor 67 72 Respiratory Rate 20 16 Respiratory Effort / Characteristics Respiratory Depth Respiratory Pattern Blood Pressure 163/72 H Blood Pressure [Left Arm] Blood Pressure Mean 115 Blood Pressure Mean [Left Arm] Pulse Oximetry 95 90 Oxygen Delivery Method Oxygen Flow Rate Sepsis Recent Fever Within 48 Hours Sepsis New/Unexplained Change in Mental Status Sepsis Action Taken by Nursing 10/28/25 16:00 10/28/25 16:00 10/28/25 16:00 Temperature Temperature Source Pulse Rate Pulse Rate [Right Finger] Pulse Rate from SpO2 Sensor Respiratory Rate Respiratory Effort / Characteristics Respiratory Depth Respiratory Pattern Blood Pressure 163/72 H 163/72 H 163/72 H Blood Pressure [Left Arm] Blood Pressure Mean 115 115 115 Blood Pressure Mean [Left Arm] Pulse Oximetry Oxygen Delivery Method Oxygen Flow Rate Sepsis Recent Fever Within 48 Hours Sepsis New/Unexplained Change in Mental Status Sepsis Action Taken by Nursing 10/28/25 16:00 10/28/25 16:12 10/28/25 16:21 Temperature Temperature Source Pulse Rate 69 79 Pulse Rate [Right Finger] Pulse Rate from SpO2 Sensor 68 79 Respiratory Rate 18 16 Respiratory Effort / Characteristics Respiratory Depth Respiratory Pattern Blood Pressure 163/72 H Blood Pressure [Left Arm] Blood Pressure Mean 115 Blood Pressure Mean [Left Arm] Pulse Oximetry 94 95 Oxygen Delivery Method Oxygen Flow Rate Sepsis Recent Fever Within 48 Hours Sepsis New/Unexplained Change in Mental Status Sepsis Action Taken by Nursing 10/28/25 16:30 10/28/25 16:42 10/28/25 16:50 Temperature Temperature Source Pulse Rate 81 73 Pulse Rate [Right Finger] 105 H Pulse Rate from SpO2 Sensor 75 71 Respiratory Rate 17 22 22 Respiratory Effort / Characteristics Respiratory Depth Respiratory Pattern Blood Pressure Blood Pressure [Left Arm] 167/86 H Blood Pressure Mean Blood Pressure Mean [Left Arm] 113 Pulse Oximetry 92 90 91 Oxygen Delivery Method Nasal Cannula Oxygen Flow Rate 2 Sepsis Recent Fever Within 48 Hours Sepsis New/Unexplained Change in Mental Status Sepsis Action Taken by Nursing 10/28/25 16:51 10/28/25 16:51 10/28/25 16:51 Temperature Temperature Source Pulse Rate Pulse Rate [Right Finger] Pulse Rate from SpO2 Sensor Respiratory Rate Respiratory Effort / Characteristics Respiratory Depth Respiratory Pattern Blood Pressure 167/86 H 167/86 H 167/86 H Blood Pressure [Left Arm] Blood Pressure Mean 132 132 132 Blood Pressure Mean [Left Arm] Pulse Oximetry Oxygen Delivery Method Oxygen Flow Rate Sepsis Recent Fever Within 48 Hours Sepsis New/Unexplained Change in Mental Status Sepsis Action Taken by Nursing 10/28/25 16:51 10/28/25 16:51 10/28/25 16:51 Temperature Temperature Source Pulse Rate 94 H Pulse Rate [Right Finger] Pulse Rate from SpO2 Sensor 93 H Respiratory Rate 25 H Respiratory Effort / Characteristics Respiratory Depth Respiratory Pattern Blood Pressure 167/86 H 167/86 H Blood Pressure [Left Arm] Blood Pressure Mean 132 132 Blood Pressure Mean [Left Arm] Pulse Oximetry 79 L Oxygen Delivery Method Oxygen Flow Rate Sepsis Recent Fever Within 48 Hours Sepsis New/Unexplained Change in Mental Status Sepsis Action Taken by Nursing VITAL SIGNS - Vital signs and nursing notes were reviewed. Hypertensive, otherwise stable and afebrile. GENERAL -85-year-old female appearing her stated age who is in no acute distress. Communicates well with provider and answers questions appropriately. SKIN - Without rashes. No meningeal or petechial rash. HEAD - NC/AT. EYES - PERRL with EOMI bilaterally. Sclera anicteric. EARS - No deformities of external structures noted on gross examination bilaterally. NOSE - Midline and without cyanosis. No epistaxis or purulent drainage noted. MOUTH/OROPHARYNX - Without perioral cyanosis. NECK - Neck with FROM. No nuchal rigidity. LUNGS - mildly diminished breath sounds bilat CARDIAC - RRR ABDOMEN - Abdominal contour normal without pulsations or visible masses. BS normoactive all four quadrants. No tenderness, palpable masses, hepatosplenomegaly, or ascites noted. EXTREMITIES - No clubbing or peripheral cyanosis. +5/5 strength noted in UE/LE bilaterally. NEUROLOGIC - Cranial nerves II through XII grossly intact. PSYCH -alert, oriented and pleasant on exam Course Administered Medications Heparin Sodium/Dextrose (Heparin 38581 Unit/500 Ml D5w) 25,000 units in 500 mls @ 18 mls/hr IV .Q24H RAFI; Protocol Stop: 11/27/25 16:44 Last Admin: 10/28/25 16:54 Dose: 900 units/hr, 18 mls/hr Documented By: Co-signed By: AAKASH Discontinued Medications Heparin Sodium (Porcine) (Heparin Sod (Porcine) 1000 Unit/Ml) 1 units IV NOW ONE Stop: 10/28/25 16:42 Last Admin: 10/28/25 16:53 Dose: 4,000 units Documented By: Co-signed By: AAKASH Heparin Sodium/Dextrose (Heparin Iv Adult Wt-Based Standard W/ Initial Bolus Protocol) 1 each IV NOW STA; Protocol Stop: 10/28/25 16:27 Last Admin: 10/28/25 19:53 Dose: Not Given Documented By: VANDANA Doxycycline Hyclate (Vibramycin) 100 mg in 100 mls @ 50 mls/hr IV NOW STA Stop: 10/28/25 18:10 Last Infusion: 10/28/25 20:02 Dose: Infused Documented By: Admin: 10/28/25 17:31 Dose: 50 mls/hr Documented By: Ceftriaxone Sodium (Rocephin) 1,000 mg in 50 mls @ 100 mls/hr IV NOW STA Stop: 10/28/25 16:54 Last Infusion: 10/28/25 17:31 Dose: Infused Documented By: Admin: 10/28/25 16:54 Dose: 100 mls/hr Documented By: Ioversol (Optiray 320 125ml) 115 ml IV ONCE ONE Stop: 10/28/25 15:07 Last Admin: 10/28/25 15:07 Dose: 115 ml Documented By: BELEN Critical Care Time I have personally spent greater than 42 minutes of critical care time in the direct management of this patient. This includes bedside care, interpretation of diagnostic studies, and testing, discussion with consultants, patient, and family members, and other required patient management activities. This 42 minutes is in excess of all separately billable procedures. Medical Decision Making Laboratory Data 10/28/25 14:05 10/28/25 14:05 Lab Results 10/28/25 Range/Units 14:05 WBC 6.01 (4.8-10.8) K/ul RBC 2.71 L (4.20-5.40) M/uL Hgb 8.6 L (12.0-16.0) g/dL Hct 26.1 L (37.0-47.0) % MCV 96.3 (80.0-100.0) fL MCH 31.7 (25.0-34.0) pg MCHC 33.0 (32.0-36.0) g/dL RDW Std Deviation 54.0 H (36.4-46.3) fL RDW Coeff of Yasmin 15.6 H (11.5-14.5) % Plt Count 306 (130-400) K/uL MPV 10.9 (9.4-12.4) fL Immature Gran % (Auto) 0.5 % Neut % (Auto) 55.4 % Lymph % (Auto) 30.3 % Johnston % (Auto) 12.5 % Eos % (Auto) 1.0 % Baso % (Auto) 0.3 % Neut # (Auto) 3.33 (1.40-6.50) K/uL Lymph # (Auto) 1.82 (1.20-3.40) K/uL Johnston # (Auto) 0.75 H (0.11-0.59) K/uL Eos # (Auto) 0.06 (0.00-0.50) K/uL Baso # (Auto) 0.02 (0.00-0.20) K/uL Immature Gran # (Auto) 0.03 (0.01-0.20) K/uL PT 11.7 (9.0-12.0) Seconds INR 1.1 (0.9-1.1) APTT 43 H (21-31) Seconds PTT Ratio 1.6 Sodium 135 L (136-145) mmol/L Potassium 4.3 (3.5-5.1) mmol/L Chloride 98 (98-107) mmol/L Carbon Dioxide 27 (21-32) mmol/L Anion Gap 10 (3-11) BUN 27 H (6-23) mg/dl Creatinine 1.06 (0.6-1.2) mg/dl Est Cr Clr Drug Dosing Not Reportable eGFR 51.16 BUN/Creatinine Ratio 25.5 H (10-20) Glucose 96 (70-99(Fasting)) mg/dl Calcium 9.3 (8.6-10.3) mg/dl Total Bilirubin 0.5 (0.2-1.0) mg/dl AST 19 (13-39) U/L ALT 12 (7-52) U/L Alkaline Phosphatase 41 (34-104) U/L Troponin I High Sens 6.9 (0-14) pg/ml Total Protein 6.4 (6.0-8.3) gm/dl Albumin 3.6 (3.4-5.0) gm/dl Globulin 2.8 (2.5-4.0) gm/dl Albumin/Globulin Ratio 1.3 (0.9-2) Procalcitonin 0.51 H (0-0.5) ng/ml Imaging Data Radiologist's Impression: Chest X-Ray 10/28/25 14:02 XR chest 1V portable HISTORY: 85 years-old Female dyspnea, cough acute cough and syncope COMPARISON: Chest x-ray 09/20/2025, PET/CT 09/15/2025 TECHNIQUE: AP view the chest FINDINGS: Cardiomediastinal and hilar silhouettes are within normal limits. Right IJ [id number] catheter is unchanged. Pulmonary emphysema. Left greater than right layering pleural effusions are similar to prior. Mildly progressive bibasilar opacities. Healing subacute posterolateral left seventh rib fracture. Skeletal metastasis better seen on prior PET/CT. IMPRESSION: 1. Mild bibasilar opacities may represent atelectasis versus pneumonitis. 2. Left greater than right pleural effusions are similar to prior. 3. Pulmonary emphysema. 4. Healing subacute nondisplaced left seventh rib fracture. ACT 112: Negative or not required by law. The above report was generated using voice recognition software. It may contain grammatical, syntax or spelling errors. Electronically signed by: Jamey Gallardo M.D. 10/28/2025 2:50 PM Chest CTA 10/28/25 14:55 CT ANGIOGRAM OF THE CHEST CLINICAL HISTORY: Shortness of breath COMPARISON STUDY: August 12, 2025 TECHNIQUE: Following the IV administration of 115 cc of Optiray 320, CT angiogram of the chest was performed from the upper abdomen to the thoracic inlet utilizing the pulmonary embolus protocol. Images are reviewed in the axial, sagittal, and coronal planes. 3-D MIPS images are created and assessed. IV contrast was administered without complication. A dose lowering technique was utilized adhering to the principles of ALARA. CT DOSE: 458.59 mGy.cm FINDINGS: There is a 23 mm right lobe hepatic mass. This appears slightly smaller than on the prior study. No thyroid nodules are visualized. There is no evidence of thoracic aortic aneurysm or dissection. There is a tiny filling defects within the right lower lobe pulmonary artery branch. The findings are consistent with a small embolus. There is a persistent enlarged 17 x 10 mm AP window lymph node. There is a persistent enlarged 15 mm precarinal lymph node. There is a persistent mildly enlarged right hilar lymph node. There is an increasing small left pleural effusion. There is interval decrease in the size of the anterior pericardial nodules which currently measure 35 mm in maximal diameter as compared with 58 mm in diameter on the prior study. There are developing nodular airspace opacities within the right lower lobe, likely representing a pneumonia. There is underlying pulmonary emphysema. There is a stable 9 mm spiculated nodule within the right lower lobe. There is a new 9 mm right middle lobe pulmonary nodule. Persistent multiple left upper lobe irregular marginated pulmonary nodules including a 18 mm cavitary nodule. There is interval decrease in the size of the 24 mm left mediastinal mass which deforms the left atrium. There is underlying moderately severe pulmonary emphysema IMPRESSION: 1. Very small right lower lobe pulmonary artery filling defect consistent with a small embolus 2. Interval decrease in the size of the right hepatic lobe mass, and left mediastinal mass which deforms the left atrium 3. Persistent pathologically enlarged AP window and precarinal nodes. The precarinal node appears slightly larger on the prior study 4. Multiple bilateral spiculated pulmonary nodules with a new 9 mm right middle lobe pulmonary nodule 5. Increasing left pleural effusion 6. Severe pulmonary emphysema 7. Interval development of multifocal nodular right lower lobe airspace opacities likely representing a pneumonia. ACT 112: Negative or not required by law. Electronically signed by: Luke Story M.D. 10/28/2025 3:38 PM MDM Narrative Patient was seen and evaluated as above in room C04. Review was performed of nursing notes and vital signs. I did review pertinent previous visits and patient history. After obtaining a thorough history and physical examination the above work up was performed. Patient presents to us today with progressive dyspnea in the setting of known recurrent malignant pleural effusion on the left. Options of care were discussed with the patient. IV access was established. Labs were drawn. EKG per my interpretation reveals normal sinus rhythm at a rate of 68 bpm. QTc 397. QRS 68. No ST elevation on this rhythm tracing. Chest x-ray was obtained. Results as above. The patient does have atelectasis versus pneumonitis. There is also note of left greater than right pleural effusions. There is no leukocytosis. There is stable anemia with hemoglobin of 8.6. There is mild hyponatremia 135. No evidence of kidney or liver failure. Procalcitonin 0.51. Troponin within normal range. CTA of the chest was obtained to further assess. Results as above. Small PE noted. Increase of the hepatic lobe mass, increase in left pleural effusion. Pulmonary emphysema. Multifocal nodular right lower lobe pneumonia. I reviewed these findings with the patient. [id number] spoke with pulmonology, Dr. Bowen. We discussed heparin, adding bilateral duplex studies, and pulm consult. I reviewed benefit versus risk of IV anticoagulation with heparin with the patient. She denies any history of GI bleeds. She denies any history of gastric bypass. She denies any recent trauma or injury. At this time it is felt that the benefit outweighed risk. Patient in agreement. IV heparin standard bolus with drip ordered. I did also order IV antibiotics. Case discussed with the hospitalist service. Please refer to further documentation regarding her stay. In the evaluation and treatment of this patient the following differential diagnoses were entertained: DC, PE, pericarditis, pneumonia, pleural effusion, pneumothorax, among others Impression & Plan Acute pulmonary embolism, Anemia, History of lung cancer, Pneumonia Discharge Plan Visit Data Chief Complaint: Shortness of Breath/Dyspnea Stated Complaint: SOB, REF BY [facility]ER [facility] ED Provider: Marlon Euceda ED Midlevel Provider: Emanuel Smart Discharge Problem: Acute pulmonary embolism, Anemia, History of lung cancer, Pneumonia Patient Disposition: Admitted As Inpatient Condition: Good Discharge Instructions Interventions: ED Discharge Assessment Last Done: 10/28/25 19:33
--- NOTE | 2025-10-28 14:11 | Emergency Department Note ---
ED Visit Note I was consulted by the Advanced Practice Provider Emanuel Smart PA-C. I performed a substantive portion of the visit including all aspects of medical decision making. Patient with PE started on heparin and admitted to the medicine service. .
[2025-10-28 14:24] LABS: Hematocrit (blood only) 26.1 % (37.0-47.0); Hemoglobin 8.6 g/dL (12.0-16.0); Immature Granulocytes # (auto) 0.03 K/uL (0.01-0.20); Immature Granulocytes % (auto) 0.5 %; Mean Corpuscular Hemoglobin 31.7 pg (25.0-34.0); Mean Corpuscular Volume 96.3 fL (80.0-100.0); Platelet Count 306 K/uL (130-400); RDW Standard Deviation 54.0 fL (36.4-46.3); Red Blood Count 2.71 M/uL (4.20-5.40); White Blood Count 6.01 K/ul (4.8-10.8)
[2025-10-28 14:39] LABS: Alanine Aminotransferase 12 U/L (7-52); Albumin Globulin Ratio 1.3 (0.9-2); Albumin Level 3.6 gm/dl (3.4-5.0); Alkaline Phosphatase 41 U/L (34-104); Anion Gap 10 (3-11); Bilirubin,Total 0.5 mg/dl (0.2-1.0); Blood Urea Nitrogen 27 mg/dl (6-23); Calcium 9.3 mg/dl (8.6-10.3); Carbon Dioxide 27 mmol/L (21-32); Chloride 98 mmol/L (98-107); Globulin 2.8 gm/dl (2.5-4.0); Glucose 96 mg/dl (70-99(Fasting)); Potassium 4.3 mmol/L (3.5-5.1); Sodium 135 mmol/L (136-145); Total Protein 6.4 gm/dl (6.0-8.3)
[2025-10-28 14:44] LABS: INR 1.1 (0.9-1.1); Partial Thromboplastin Time 43 Seconds (21-31); Prothrombin Time 11.7 Seconds (9.0-12.0)
--- NOTE | 2025-10-28 14:52 | XRay Report ---
XR chest 1V portable HISTORY: 85 years-old Female dyspnea, cough acute cough and syncope COMPARISON: Chest x-ray 09/20/2025, PET/CT 09/15/2025 TECHNIQUE: AP view the chest FINDINGS: Cardiomediastinal and hilar silhouettes are within normal limits. Right IJ Ccaopr-h-Srio catheter is unchanged. Pulmonary emphysema. Left greater than right layering pleural effusions are similar to abdi or. Mildly progressive bibasilar opacities. Healing subacute posterolateral left seventh rib fracture . Skeletal metastasis better seen on prior PET/CT. IMPRESSION: 1. Mild bibasilar opacities may represent atelectasis versus pneumonitis. 2. Left greater than right pleural effusions are similar to prior. 3. Pulmonary emphysema. 4. Healing subacute nondisplaced left seventh rib fracture. ACT 112: Negative or not required by law. The above report was generated using voice recognition software. It may contain grammatical, syntax o r spelling errors. Electronically signed by: Jamey Gallardo M.D. 10/28/2025 2:50 PM
[2025-10-28] MEDS: OPTIRAY 320 125ml IV ONE (15:07)
--- NOTE | 2025-10-28 15:40 | CT Scan Report ---
CT ANGIOGRAM OF THE CHEST CLINICAL HISTORY: Shortness of breath COMPARISON STUDY: August 12, 2025 TECHNIQUE: Following the IV administration of 115 cc of Optiray 320, CT angiogram of the chest was pe rformed from the upper abdomen to the thoracic inlet utilizing the pulmonary embolus protocol. Images are reviewed in the axial, sagittal, and coronal planes. 3-D MIPS images are created and assessed. I V contrast was administered without complication. A dose lowering technique was utilized adhering to the principles of ALARA. CT DOSE: 458.59 mGy.cm FINDINGS: There is a 23 mm right lobe hepatic mass. This appears slightly smaller than on the prior study. No thyroid nodules are visualized. There is no evidence of thoracic aortic aneurysm or dissection. There is a tiny filling defects within the right lower lobe pulmonary artery branch. The findings are consistent with a small embolus. There is a persistent enlarged 17 x 10 mm AP window lymph node. There is a persistent enlarged 15 mm precarinal lymph node. There is a persistent mildly enlarged right hilar lymph node. There is an incr easing small left pleural effusion. There is interval decrease in the size of the anterior pericardia l nodules which currently measure 35 mm in maximal diameter as compared with 58 mm in diameter on the prior study. There are developing nodular airspace opacities within the right lower lobe, likely rep resenting a pneumonia. There is underlying pulmonary emphysema. There is a stable 9 mm spiculated nod ule within the right lower lobe. There is a new 9 mm right middle lobe pulmonary nodule. Persistent m ultiple left upper lobe irregular marginated pulmonary nodules including a 18 mm cavitary nodule. There is interval decrease in the size of the 24 mm left mediastinal mass which deforms the left atri um. There is underlying moderately severe pulmonary emphysema IMPRESSION: 1. Very small right lower lobe pulmonary artery filling defect consistent with a small embolus 2. Interval decrease in the size of the right hepatic lobe mass, and left mediastinal mass which defo tremayne the left atrium 3. Persistent pathologically enlarged AP window and precarinal nodes. The precarinal node appears sli ghtly larger on the prior study 4. Multiple bilateral spiculated pulmonary nodules with a new 9 mm right middle lobe pulmonary nodule 5. Increasing left pleural effusion 6. Severe pulmonary emphysema 7. Interval development of multifocal nodular right lower lobe airspace opacities likely representing a pneumonia. ACT 112: Negative or not required by law. Electronically signed by: Luke Story M.D. 10/28/2025 3:38 PM
[2025-10-28] MEDS: HEPARIN SOD (PORCINE) 1000 UNIT/ML IV ONE (16:53)
[2025-10-28] MEDS: cefTRIAXone SODIUM 1,000 MG/50 ML BAG IV STA (16:54)
[2025-10-28] MEDS: HEPARIN 25000 UNIT/500 ML D5W 25,000 UNITS/500 ML BAG IV SCH (16:54)
--- NOTE | 2025-10-28 17:53 | History & Physical Report ---
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 She presented with 3 weeks of worsening shortness of breath on exertion and productive cough with yellow sputum production. Workup in the ED revealed right lower lobe pneumonia and very small right lower lobe pulmonary embolism. She was admitted for management of such. #Right lower lobe pneumonia - identified on CXR and chest CTA. 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 Mclean, has required thoracentesis previously #COPDon chronic 2 L NC at baseline, continue home inhalers #Hypertensioncontinue amlodipine #Hyperlipidemiacontinue statin #Mental healthcontinue Zoloft #Anemiaof chronic disease with metastatic cancer. Hemoglobin stable on arrival, continue to monitor VTE PPx: Heparin Dispo: Admission to med/tele Reviewed prior medical records. 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 She presented from oncology with worsening shortness of breath. At the time of my exam, the patient was lying in bed in no acute distress. She states starting 3 weeks ago, she has been more short of breath with exertion. She also has had an increased productive cough with initially white and now yellow sputum production. She also reports feeling feverish/chilled and had diarrhea at the start of this, though this has not continued. She wears 2 L O2 continuously. Vitals on admission are stable. Labs on admission are significant for baseline anemia with Hgb 8.6, mild hyponatremia with sodium 135, mildly elevated BUN at 27, and mildly elevated procalcitonin at 0.51. No leukocytosis. Renal function WNL. Liver enzymes WNL. Troponin WNL at 6.9. CXR on admission reveals mild bibasilar opacities that may represent atelectasis versus pneumonitis, left greater than right pleural effusions similar to prior, pulmonary emphysema, and healing subacute nondisplaced left seventh rib fracture. Chest CTA revealed very small right lower lobe pulmonary artery filling defect consistent with a small embolus, interval decrease in the size of the right hepatic lobe mass and the left mediastinal mass which deforms the left atrium, persistent pathologically enlarged AP window and precarinal nodesthe precarinal node appears slightly larger on the prior study, multiple bilateral spiculated pulmonary nodules with a new 9 mm right middle lobe pulmonary nodule, increasing left pleural effusion, severe pulmonary emphysema, and interval development of multifocal nodular right lower lobe airspace opacity likely representing a pneumonia. We discussed code status, patient states that she has paperwork at home indicating a DNR/DNI status however she wishes to be a full code at this time. Allergies Allergy/AdvReac Type Severity Reaction Status Date / Time buspirone Allergy Intermediate Altered Verified 10/28/25 15:58 sensation--Jackson "jaggy" all over tetanus toxoid, adsorbed Allergy Intermediate LOCALIZED Verified 10/28/25 15:58 SWELLING, ITCHING AND REDNESS AT INJECTION SITE ibuprofen AdvReac Severe BLOODY Verified 10/28/25 15:58 URINE azithromycin AdvReac Intermediate FATIGUE Verified 10/28/25 15:58 levofloxacin AdvReac Intermediate lightheaded Verified 10/28/25 15:58 ness Home Medications Medication Instructions Recorded Confirmed Type multivitamin (One-A-Day Essential 1 tab PO QAM 07/01/19 10/28/25 History tablet) coenzyme Q10 200 mg capsule 200 mg PO DAILY #90 caps 08/05/19 10/28/25 Rx nebulizer accessories #1 ea 10/02/23 08/23/25 Rx Oxygen Home #3 L 10/22/23 08/23/25 Rx psyllium husk 3.4 gram/5.4 gram 1 tbsp PO DAILY 03/13/24 10/28/25 History oral powder (Metamucil) calcium 600 mg (as 2 cap PO DAILY 04/01/24 10/28/25 History carbonate)-vitamin D3 12.5 mcg (500 unit) capsule (Calcium with Vit D3) Portable Oxygen #1 ea 04/10/24 08/23/25 Rx albuterol sulfate 90 mcg/actuation 2 puff inhalation QID PRN 08/12/24 10/28/25 Rx aerosol inhaler Shortness Of Breath Or Wheezing #8.5 grams betamethasone dipropionate 0.05 % 1 applic topical BID PRN skin 01/12/25 10/28/25 Rx topical cream irritation #15 grams cyclobenzaprine 5 mg tablet 5 mg PO TID PRN muscle spasm #30 01/12/25 10/28/25 Rx tabs simvastatin 20 mg tablet 20 mg PO HS #90 tabs 05/13/25 10/28/25 Rx albuterol sulfate 2.5 mg/3 mL 2.5 mg inhalation Q4H PRN sob 07/07/25 10/28/25 History (0.083 %) solution for nebulization ondansetron HCl 8 mg tablet 8 mg PO Q8H PRN N/V 07/07/25 10/28/25 History prochlorperazine maleate 10 mg 10 mg PO Q6H PRN Nausea And 07/07/25 10/28/25 History tablet (Compazine) Vomiting triamcinolone acetonide 0.5 % 1 applic topical BID PRN as 07/07/25 10/28/25 History topical cream directed famotidine 40 mg tablet 40 mg PO QAM 07/13/25 10/28/25 History tramadol 50 mg tablet 50 - 100 mg PO QID PRN pain 08/12/25 10/28/25 History amlodipine 2.5 mg tablet 2.5 mg PO QAM 08/14/25 10/28/25 History magnesium oxide 400 mg PO DAILY #30 tabs 08/18/25 10/28/25 Rx meclizine 12.5 mg tablet 12.5 mg PO TID PRN dizziness #15 08/19/25 10/28/25 Rx tabs sertraline 25 mg tablet (Zoloft) 50 mg PO QAM 08/23/25 10/28/25 History diphenoxylate-atropine 2.5 1 tab PO QID PRN Diarrhea 09/24/25 10/28/25 History mg-0.025 mg tablet fluticasone fur. 200 mcg-umeclid 1 inh inhalation QAM #60 ea 09/28/25 10/28/25 Rx 62.5 mcg-vilant 25 mcg inhalat.powder (Trelegy Ellipta) Past Med/Surg History Problem List (Updated 10/28/25 @ 20:24 by Valeria Cadet PA-C) Pneumonia Acute pulmonary embolism Recurrent left pleural effusion Chronic respiratory failure with hypoxia, on home O2 therapy Small cell lung cancer in adult Acute hyponatremia (Acute) Hypomagnesemia (Acute) Generalized weakness (Acute) PATTERSON (dyspnea on exertion) Extensive stage primary small cell carcinoma of lung History of lung cancer (Acute) Blood culture positive (Acute) Staphylococcus epidermidis bacteremia Malignant pleural effusion (Acute) Rib pain on left side 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) Cat scratch of left lower leg Rash and nonspecific skin eruption Hypophosphatemia (Acute) Hypomagnesemia (Acute) 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, follows w/ Dr Mclean Chronic hypoxic respiratory failure Anemia Former smoker Quit around 1991 Smoked for 20-30 years prior (does not know specifics) 1 pk/day Hypertension Hyperlipidemia (Chronic) COPD (chronic obstructive pulmonary disease) Asthma (Chronic) uses rescue inhalers prn Acid reflux disease (Chronic) Postmenopausal osteoporosis (Chronic) Anxiety (Chronic) Allergic rhinitis Arthritis (Chronic) H/O diverticulitis of colon (Chronic) Medical History On home O2 2 lpm via tx Surgical History S/P tonsillectomy and adenoidectomy Port-A-Cath in place (02/19/24) Insertion Access Port with Fluoroscopy(Not Applicable) - Kushal Jordan DO, FACS History of thoracentesis 01/29/24 @ [facility] Status post excision of lipoma S/P cataract extraction bilateral H/O colonoscopy Family History Father Diabetes Myocardial infarction Throat cancer Mother Hypertension Stroke Brother Lung cancer Cancer of kidney Daughter Brain cancer Denies family history of Ovarian cancer Prostate cancer Breast cancer Colorectal cancer Social History Smoking Status: Former smoker Tobacco Type: Cigarettes Age Started Using Tobacco: 20; Age Quit Using Tobacco: 52; packs per day: 1; Cigarettes Per Day: 1 PPD x 20 yrs; Second Hand Exposure: No; Do You Dip or Chew Tobacco: No; Hx Alcohol Use: No Hx Substance Use: No (no change from prior admission) Preferred Language: [place] Communication Ability: Effective Visual Impairment: No Limitations Hearing Ability: Normal Commissions Coordinator Required: No Beliefs That Will Affect Care: None marital status: / Current Living Situation: Alone Current Living Situation Comment: no change from prior admission current occupational status: retired current occupation: Used to work at a [employer] How many Children do You have: 1 How many Children do You have Comment: Only child is . Feels Safe at Home: Yes Childhood Exposure to Second-Hand Smoke: Yes Diet: regular caffeine: Yes (coffee x 1-3 cup/day, tea occasionally) during the past year weight has: decreased > 10 lbs Dental Care, Regularly: Yes Physical Activity Frequency: Does not Exercise Seatbelt Use: always Sunscreen Use: No Do you think of yourself as: straight/heterosexual Gender Identity: Female Assistive Devices: Glasses and Oxygen - Continuous Review of Systems Review of Systems: All systems reviewed & are unremarkable except as noted in HPI & below Respiratory: + cough, + dyspnea on exertion and + spu jayson production Physical Exam Physical Exam: General: No acute distress, nondiaphoretic. Chronically ill-appearing, very frail elderly female. Skin: Warm, dry. No rashes or peripheral edema noted. Cardiac: Regular rate and rhythm without murmurs gallops or rubs. Pulm: Diminished in bases bilaterally L>R but otherwise clear to auscultation without significant wheezes, rales or rhonchi. Normal respiratory effort. 94% on 2 L NC. Abdominal: Soft, nontender, nondistended. Bowel sounds present. Neuro: A&O x3. No focal neurological deficits. Results & Data Results & Data Vital Signs (Past 12 Hours) Vital Signs Temp Pulse Pulse Resp BP BP Pulse Ox 10/28/25 16:50 105 H 22 167/86 H 91 10/28/25 14:22 97 10/28/25 14:22 97 10/28/25 14:22 10/28/25 14:02 60 10/28/25 14:00 23 162/74 H 100 10/28/25 13:43 98.2 F 82 22 149/81 H O2 Del Method O2 Flow Rate 10/28/25 16:50 Nasal Cannula 2 10/28/25 14:22 Nasal Cannula 2 10/28/25 14:22 Nasal Cannula 2 10/28/25 14:22 Nasal Cannula 2 10/28/25 14:02 10/28/25 14:00 Nasal Cannula 2 10/28/25 13:43 Nasal Cannula 2 Laboratory Results Reviewed CBC with differential, coagulation studies, CMP/chemistries Diagnostic Findings Reviewed CXR, chest CTA Code Status & VTE Plan VTE Prophylaxis Plan VTE Prophylaxis will be ordered: Yes Supervising Physician Co-Signing Physician Notes Patient was seen and examined independently I discussed the case with Valeria Cadet PA-C I reviewed pertinent past medical social family history and also the plan of care and agree with the plan of care. Patient referred from oncology with increasing cough and shortness of breath. Patient noted small pulm embolisms and possible pneumonia infiltrate on admission. Concern for gram-negative pneumonia given her frequent healthcare interaction given treatment for small cell lung cancer. Patient also small pleural effusion on the left lung this was drained in August. Does not appear to be significantly large to cause her acute respiratory failure with chronic hypoxia. Follow-up pulmonary consultation initiate antibiotics for gram-negative and atypical pneumonia coverage. May consider evaluation of size of pleural effusion before considering thoracentesis. Examination finds the patient to be not breathless or wheezing does have a cough during exam her lungs are without focal Air loss except for the left base which is diminished. For the pulmonary embolism these are small we will begin intravenous heparin infusion in case of procedure being warranted. Will use cefepime and doxycycline Any exceptions will be noted below PG Care Time/CCT Total # of Minutes Spent Total Time Spent with Patient: Total time spent is greater than 50% in coordination of care (as documented) at patient's floor/unit and/or counseling patient: Coding Level of Care Code 10714 INT INP/OBS CARE 3/75MIN Diagnoses Pneumonia J18.9 Lung cancer metastatic to brain C34.90; C79.31 Acute pulmonary embolism I26.99 Small cell lung cancer in adult C34.90 Recurrent left pleural effusion J90 Chronic respiratory failure with hypoxia, on home O2 therapy J96.11; Z99.81
[2025-10-28] MEDS ORDERED: POLYETHYLENE (MIRALAX) 17 GM PACK PO PRN (19:33)
[2025-10-28] MEDS ORDERED: MAGNESIUM HYDROXIDE SUSP 30 ML UDC PO PRN (19:33)
[2025-10-28] MEDS ORDERED: ONDANSETRON INJ 2 MG/ML 2 ML VIAL IV PRN (19:33)
[2025-10-28] MEDS ORDERED: ACETAMINOPHEN 325 MG TAB PO PRN (19:33)
[2025-10-28] MEDS: Heparin IV Adult Wt-Based Standard w/ INITIAL Bolus Protocol IV STA (19:53)
[2025-10-28] MEDS ORDERED: ALBUTEROL 0.083% NEBU SOLN 3 ML VIAL INH PRN (20:12)
[2025-10-28] MEDS ORDERED: MECLIZINE 12.5 MG TAB PO PRN (20:12)
[2025-10-28] MEDS ORDERED: ALBUTEROL HFA 8 GM INHALER INH PRN (20:12)
[2025-10-28] MEDS ORDERED: CYCLOBENZAPRINE HCL 5 MG TAB PO PRN (20:12)
[2025-10-28] MEDS ORDERED: ALBUT/IPRATROP 3MG/0.5MG NEB 3 ML VIAL NEB PRN (20:26)
[2025-10-28] MEDS: CEFEPIME 2000MG 2,000 MG/20 ML SYR IV SCH (21:47)
[2025-10-28] MEDS: guaiFENesin 600 MG TABCR PO SCH (22:39)
[2025-10-28] MEDS: SIMVASTATIN 20 MG TAB PO SCH (22:40)
[2025-10-28 23:45] LABS: ANTI-Xa, UFH(UnfractionatedHep 0.50 IU/ml (0.3-0.7)
[2025-10-29 05:56] LABS: Hematocrit (blood only) 28.3 % (37.0-47.0); Hemoglobin 9.2 g/dL (12.0-16.0); Mean Corpuscular Hemoglobin 31.6 pg (25.0-34.0); Mean Corpuscular Volume 97.3 fL (80.0-100.0); Platelet Count 298 K/uL (130-400); RDW Standard Deviation 54.3 fL (36.4-46.3); Red Blood Count 2.91 M/uL (4.20-5.40); White Blood Count 5.46 K/ul (4.8-10.8)
[2025-10-29 06:02] LABS: INR 1.1 (0.9-1.1); Prothrombin Time 11.7 Seconds (9.0-12.0)
[2025-10-29 06:10] LABS: ANTI-Xa, UFH(UnfractionatedHep 0.42 IU/ml (0.3-0.7)
[2025-10-29 06:13] LABS: Anion Gap 8.0 (3-11); Blood Urea Nitrogen 24.0 mg/dl (6-23); Calcium 9.1 mg/dl (8.6-10.3); Carbon Dioxide 29.0 mmol/L (21-32); Chloride 101.0 mmol/L (98-107); Creatinine Clr Calc Pharmacy 27.8 ml/min; Glucose 108.0 mg/dl (70-99(Fasting)); Potassium 3.9 mmol/L (3.5-5.1); Sodium 138.0 mmol/L (136-145)
--- NOTE | 2025-10-29 08:07 | Ultrasound Report ---
EXAM: US venous doppler LE BI CLINICAL HISTORY: Acute PE. TECHNIQUE: Ultrasound examination of bilateral lower extremity veins was performed in real time and duplex. One or more of the following were performed: spectral analysis, resistive index, waveform analysis, and pulsed Doppler. COMPARISON: 02/05/2024 FINDINGS: Normal phasic, non-pulsatile, and spontaneous flow is noted in bilateral common femoral, superficial femoral, popliteal, posterior tibial, and peroneal veins. The visualized veins of both lower extremities demonstrate normal compressibility. No sonographic evidence of acute deep vein thrombosis (DVT) is detected in the visualized veins of both lower extremities. Compression and Augmentation: All evaluated veins compress fully with applied transducer pressure. Augmentation of venous flow is noted with distal compression. Additional Findings: No evidence of intraluminal thrombus. IMPRESSION: No sonographic evidence of acute DVT is detected in bilateral common femoral, superficial femoral, popliteal, posterior tibial, and peroneal veins at the time of examination. No interval changes. Disclaimer: DVT could be missed early in the disease when clot burden is minimal. For patients with moderate and high pretest probability of DVT and negative ultrasound, the [employer] clinical guidelines recommend testing with a D-dimer assay or repeat ultrasound in 5-7 days. If symptoms worsen, the Society of radiologists in ultrasound recommends repeating ultrasound even earlier. Electronically signed by Bernabe Gonzalez 10-29-2025 08:07 AM
[2025-10-29] MEDS ORDERED: NON-FORMULARY MEDICATION (Fluticasone-Umeclidin-Vilanter [Trelegy Ellipta] 200-62.5-25 mcg INH SCH (09:00)
[2025-10-29] MEDS: UMECLIDINIUM/VILANTEROL 62.5/25MCG 7 PUFFS/INHALER INH SCH (09:35)
[2025-10-29] MEDS: CEROVITE ADV FORMULA TAB PO SCH (09:35)
[2025-10-29] MEDS: PSYLLIUM HUSK 4GM PACKET PO SCH (09:35)
[2025-10-29] MEDS: FLUTICASONE FUROATE 200MCG 14 PUFFS/INHALER INH SCH (09:35)
[2025-10-29] MEDS: CEFEPIME 1000MG 1,000 MG/10 ML SYR IV SCH (09:36)
[2025-10-29] MEDS: MAGNESIUM OXIDE 400 MG TAB PO SCH (09:36)
[2025-10-29] MEDS: FAMOTIDINE 40 MG TABLET PO SCH (09:36)
[2025-10-29] MEDS: CALCIUM 600MG + VIT D 400 IU TAB PO SCH (09:36)
[2025-10-29] MEDS: SERTRALINE HCL 50 MG TABLET PO SCH (09:36)
--- NOTE | 2025-10-29 09:46 | Pulmonary Consultation ---
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 The patient presented with worsening shortness of breath. Found to have pneumonia, small PE on the right and increasing size of her left lower effusion. Pulmonary was consulted for further recommendations. CT of the chest was reviewed independently by myself. There is a small PE in the right lower lobe. Nodular infiltrates appreciated in the right lower lobe. Extensive emphysema. Mets appreciated. Increasing size of left pleural effusion. Thoracentesis was performed at bedside today. 400 cc of yellow hazy fluid was removed. Sent for cultures and differential/chemistry. Problem list: Acute PE Malignant left pleural effusion Community-acquired pneumonia Acute on chronic hypoxic respiratory failure Extensive small cell lung cancer Recommendation/plan: Patient has been started on heparin, agree with this. 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 I sent a message to her oncologist (Dr. Betancur) regarding systemic anticoagulation in setting of BEEKEEPER FARMER metastases. Would recommend discussing the case with oncology prior to starting long acting anticoagulation such as Eliquis. Patient would likely need lifelong anticoagulation given her underlying disease process. Patient has been started on antibiotics, has some phlegm production. Procalcitonin is mildly elevated. Recommend obtaining sputum culture and treating to cover for CAP for 5 days. Thoracentesis was performed today, 400 cc of fluid was removed. Chest x-ray is pending. I discussed the option of PleurX catheter insertion versus thoracentesis during her hospital stay. She would rather have a one-time thoracentesis performed today and follow-up with her primary hot box [facility] in the future. Recommend palliative care consultation. Thank you for this consultation. I will follow along with you. Please call directly with any questions. 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 The patient underwent chemo therapy and is currently on treatment with topotecan and getting brain radiation. She has a known malignant pleural effusion on the left and has undergone thoracentesis in the past with improvement in her dyspnea (most recent thoracentesis was 09/20/25 with 800 cc drained). The patient follows with Rowena roman and was last seen 08/24/[address] Lopez. The patient presented to the emergency department 10/28/2025 with worsening charis rtness of breath. Symptoms have been progressing over the past 3 weeks. Mostly noticing dyspnea with exertion. She denies fevers, chills, cough or phlegm production. Imaging of the chest with CT PE protocol showed a small PE in the right lower lobe, persistent pathologically enlarged precordial nodes, multiple bilateral spiculated pulmonary nodules with a new 9 mm nodule in the right middle lobe, increasing size of left-sided pleural effusion, underlying severe emphysema and multifocal nodular infiltrates in the right lower lobe. The patient was initiated on heparin and antibiotics to cover for pneumonia. Pulmonary has been consulted for further evaluation regarding PE, pneumonia and lung cancer. When examined the patient today she is resting comfortably in bed having breakfast. Breath sounds are diminished. No wheezing is appreciated. Patient is on heparin infusion. No lower extremity pain or edema appreciated. Duplex ultrasound was negative for VTE. I discussed the options of thoracentesis versus PleurX catheter insertion. Allergies Allergy/AdvReac Type Severity Reaction Status Date / Time buspirone Allergy Intermediate Altered Verified 10/28/25 15:58 sensation--[place] "jaggy" all over tetanus toxoid, adsorbed Allergy Intermediate LOCALIZED Verified 10/28/25 15:58 SWELLING, ITCHING AND REDNESS AT INJECTION SITE ibuprofen AdvReac Severe BLOODY Verified 10/28/25 15:58 URINE azithromycin AdvReac Intermediate FATIGUE Verified 10/28/25 15:58 levofloxacin AdvReac Intermediate lightheaded Verified 10/28/25 15:58 ness Home Medications Medication Instructions Recorded Confirmed Type multivitamin (One-A-Day Essential 1 tab PO QAM 07/01/19 10/28/25 History tablet) coenzyme Q10 200 mg capsule 200 mg PO DAILY #90 caps 08/05/19 10/28/25 Rx nebulizer accessories #1 ea 10/02/23 08/23/25 Rx Oxygen Home #3 L 10/22/23 08/23/25 Rx psyllium husk 3.4 gram/5.4 gram 1 tbsp PO DAILY 03/13/24 10/28/25 History oral powder (Metamucil) calcium 600 mg (as 2 cap PO DAILY 04/01/24 10/28/25 History carbonate)-vitamin D3 12.5 mcg (500 unit) capsule (Calcium with Vit D3) Portable Oxygen #1 ea 04/10/24 08/23/25 Rx albuterol sulfate 90 mcg/actuation 2 puff inhalation QID PRN 08/12/24 10/28/25 Rx aerosol inhaler Shortness Of Breath Or Wheezing #8.5 grams betamethasone dipropionate 0.05 % 1 applic topical BID PRN skin 01/12/25 10/28/25 Rx topical cream irritation #15 grams cyclobenzaprine 5 mg tablet 5 mg PO TID PRN muscle spasm #30 01/12/25 10/28/25 Rx tabs simvastatin 20 mg tablet 20 mg PO HS #90 tabs 05/13/25 10/28/25 Rx albuterol sulfate 2.5 mg/3 mL 2.5 mg inhalation Q4H PRN sob 07/07/25 10/28/25 History (0.083 %) solution for nebulization ondansetron HCl 8 mg tablet 8 mg PO Q8H PRN N/V 07/07/25 10/28/25 History prochlorperazine maleate 10 mg 10 mg PO Q6H PRN Nausea And 07/07/25 10/28/25 History tablet (Compazine) Vomiting triamcinolone acetonide 0.5 % 1 applic topical BID PRN as 07/07/25 10/28/25 History topical cream directed famotidine 40 mg tablet 40 mg PO QAM 07/13/25 10/28/25 History tramadol 50 mg tablet 50 - 100 mg PO QID PRN pain 08/12/25 10/28/25 History amlodipine 2.5 mg tablet 2.5 mg PO QAM 08/14/25 10/28/25 History magnesium oxide 400 mg PO DAILY #30 tabs 08/18/25 10/28/25 Rx meclizine 12.5 mg tablet 12.5 mg PO TID PRN dizziness #15 08/19/25 10/28/25 Rx tabs sertraline 25 mg tablet (Zoloft) 50 mg PO QAM 08/23/25 10/28/25 History diphenoxylate-atropine 2.5 1 tab PO QID PRN Diarrhea 09/24/25 10/28/25 History mg-0.025 mg tablet fluticasone fur. 200 mcg-umeclid 1 inh inhalation QAM #60 ea 09/28/25 10/28/25 Rx 62.5 mcg-vilant 25 mcg inhalat.powder (Trelegy Ellipta) Patient History Medical History On home O2 2 lpm via tx Surgical History S/P tonsillectomy and adenoidectomy Port-A-Cath in place (02/19/24) Insertion Access Port with Fluoroscopy(Not Applicable) - Kushal Jordan DO, FACS History of thoracentesis 01/29/24 @ [facility] Status post excision of lipoma S/P cataract extraction bilateral H/O colonoscopy Family History Father Diabetes Myocardial infarction Throat cancer Mother Hypertension Stroke Brother Lung cancer Cancer of kidney Daughter Brain cancer Denies family history of Ovarian cancer Prostate cancer Breast cancer Colorectal cancer Social History Smoking Status: Former smoker Tobacco Type: Cigarettes Age Started Using Tobacco: 20; Age Quit Using Tobacco: 52; packs per day: 1; Cigarettes Per Day: 1 PPD x 20 yrs; Smoking End Date: 1991; Second Hand Exposure: No; Do You Dip or Chew Tobacco: No; Tobacco Cessation Education Requested by Patient: No Hx Alcohol Use: No Hx Substance Use: No Preferred Language: Kazakh Communication Ability: Effective Visual Impairment: No Limitations Hearing Ability: Normal Roof Service Technician Required: No Beliefs That Will Affect Care: None marital status: / Current Living Situation: Alone Current Living Situation Comment: no change from prior admission current occupational status: retired current occupation: Used to work at a [employer] How many Children do You have: 1 How many Children do You have Comment: Only child is . Other Information That Helps Us Care for You: No Feels Safe at Home: Yes Safety Concerns: Feels Safe At This Time Childhood Exposure to Second-Hand Smoke: Yes Diet: regular caffeine: Yes (coffee x 1-3 cup/day, tea occasionally) during the past year weight has: decreased > 10 lbs Dental Care, Regularly: Yes Physical Activity Frequency: Does not Exercise Seatbelt Use: always Sunscreen Use: No Do you think of yourself as: straight/heterosexual Gender Identity: Female Assistive Devices: Denture - Upper, Glasses and Oxygen - Continuous Review of Systems Review of Systems: A 12 point review of systems was obtained in detail. Negative except as noted in HPI. Physical Exam Physical Exam: Physical examination: General: Elderly female, thin, appears comfortable sitting at edge of bed, not in distress HEENT: Normocephalic, atraumatic. Extraocular movements intact. Sclera are nonicteric. Skin: Warm and dry. No rashes appreciated. No jaundice appreciated. Cardiovascular: Heart is a regular rate and rhythm, no murmurs appreciated on my exam. No significant lower extremity edema. Lungs: Diminished bilaterally. On nasal cannula. [id number] ultrasound performed at bedside, small free-flowing effusion appreciated on the left. Musculoskeletal: Decreased muscle mass. No gross joint deformity abnormalities. No effusions appreciated. Neurologic: Awake and alert, oriented. CN II through XII are grossly intact. Speech is fluent. Nonfocal exam. Psychiatric: Appropriate cooperative during my exam. Results & Data Results & Data Vital Signs (Past 12 Hours) Vital Signs Temp Pulse Pulse Pulse Resp BP Pulse Ox 10/29/25 07:32 36.3 C L 71 18 151/67 H 90 10/29/25 07:31 10/29/25 07:27 53 L 10/28/25 23:05 36.5 C 68 18 176/72 H 97 O2 Del Method O2 Flow Rate 10/29/25 07:32 Nasal Cannula 2 10/29/25 07:31 Nasal Cannula 2 10/29/25 07:27 10/28/25 23:05 Room Air PG Care Time/CCT Total # of Minutes Spent Total Time Spent with Patient: Total time spent is greater than 50% in coordination of care (as documented) at patient's floor/unit and/or counseling patient: [place] [address] IN/OBS CONSULT LVL 4,60M Patient Type New History Comprehensive Exam Comprehensive Medical Decision Making Moderate Complexity Diagnoses Malignant pleural effusion J91.0 Pneumonia J18.9 Acute pulmonary embolism I26.99 Chronic respiratory failure with hypoxia, on home O2 therapy J96.11; Z99.81 Small cell lung cancer in adult C34.90
--- NOTE | 2025-10-29 11:09 | Procedure Note ---
Procedure Note Date of Service October 29, 2025 Procedure: Diagnostic therapeutic ultrasound-guided catheter thoracentesis Car Customizer: Dr. Libertad Bowen Indication: Pleural effusion Consent: Signed by patient and verified with timeout prior to procedure Anesthesia: 1% lidocaine without epinephrine local. Procedure: Consent was verified and timeout performed. Appropriate imaging studies were reviewed prior to the procedure. Patient was placed in a seated position and limited thoracic ultrasound was performed of the left chest. See separate imaging. Appropriate site above the diaphragm for thoracentesis was selected. The skin was prepped and draped in normal sterile fashion. Lidocaine was used for local analgesia. Fluid was aspirated via the finder needle. A small skin bandar was made with the scalpel and the catheter over the needle apparatus was advanced over the rib into the pleural space. Using the syringe one-way valve system, a total of 400 mL's of yellow hazy fluid was removed. Procedure was terminated due to no more fluid to drain, coughing. The catheter was removed and observed to be intact. A sterile dressing was applied. Post procedure chest x-ray was ordered. Fluid was sent for labs, culture. Complications: None Blood loss: Minimal [facility] Procedure Codes (Charges) Pulmonary/Thoracic Procedure 1: Pulmonary and Thoracic: 14924 Thoracentesis w/o imaging Coding CPT Codes Pulmonary/Thoracic - Pulmonary and Thoracic: 70545 Thoracentesis w/o imaging ([id number]) Additional Codes Date of Service (PG.SURGERY)
--- NOTE | 2025-10-29 11:28 | XRay Report ---
XR chest 1V portable CLINICAL HISTORY: S/P Thoracentesis COMPARISON STUDY: Chest radiograph and chest CT October 28, 2025. FINDINGS: There is no pneumothorax following left thoracentesis. The left pleural effusion has signif icantly decreased in size. A right internal jugular [id number] remains in place. Cardiomediastinal silhouette is unremarkable. Left seventh rib fracture is incidentally noted. Right infrahilar opacit ies again noted. IMPRESSION: No pneumothorax following left thoracentesis. ACT 112: Negative or not required by law. Electronically signed by: Dimitry Rodriguez M.D. 10/29/2025 11:27 AM
[2025-10-29 11:57] LABS: Albumin Level 3.6 gm/dl (3.4-5.0); Bilirubin,Total 0.4 mg/dl (0.2-1.0); Total Protein 6.4 gm/dl (6.0-8.3)
--- NOTE | 2025-10-29 12:29 | Hospitalist Progress Note ---
Date of Service October 29, 2025 Assessment & Plan (1) Pneumonia: (2) Lung cancer metastatic to brain: (3) Acute pulmonary embolism: (4) Small cell lung cancer in adult: (5) Recurrent left pleural effusion: (6) Chronic respiratory failure with hypoxia, on home O2 therapy: Tank Fernandez is a pleasant 85-year-old woman with past medical history of small cell lung cancer with metastasis to brain, malignant pleural effusions, COPD on chronic 2 L nasal cannula, hypertension, hyperlipidemia. She presented with 3 weeks of worsening shortness of breath on exertion and productive cough with yellow sputum production. Workup in the ED revealed right lower lobe pneumonia and very small right lower lobe pulmonary embolism. She was admitted for management of such. #Right lower lobe pneumonia - identified on CXR and chest CTA. 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 Mclean in [facility] - Thoracentesis performed by pulmonology 10/29 with 400 cc of fluid removed - Discussed a palliative care consult with the patient, she declined at this time #COPDon chronic 2 L NC at baseline, continue home inhalers #Hypertensioncontinue amlodipine #Hyperlipidemiacontinue statin #Mental healthcontinue Zoloft #Anemiaof chronic disease with metastatic cancer. Hemoglobin stable on arrival, continue to monitor VTE PPx: Heparin Dispo: Continued inpatient stay Ordered brain MRI Admission and Anticipated Discharge Date Admission Date: October 28, 2025 Subjective Patient seen and evaluated at bedside. She was sitting up on side of the bed eating lunch. She reports her shortness of breath has improved since her thoracentesis earlier this morning. She notes that she is "not huffing and puffing when going to the bathroom." We discussed obtaining a brain MRI at the recommendation of her outpatient oncologist given her brain metastasis and needing to start oral anticoagulation for her acute PE. She denies prior issues with MRIs and does not need any sedative medication prior to getting the scan done. We also discussed palliative care, patient strongly declines wanting to meet with palliative care at this time. She has a good appetite and slept well overnight. No additional complaints or concerns at this time. Telemetry reviewed: NSR 80s. Physical Exam Physical Exam: General: No acute distress, nondiaphoretic. Chronically ill-appearing, very frail elderly female. Skin: Warm, dry. No rashes or peripheral edema noted. Cardiac: Regular rate and rhythm without murmurs gallops or rubs. Pulm: Diminished in bases bilaterally but otherwise clear to auscultation without significant wheezes, rales or rhonchi. Normal respiratory effort. 96% on 2 L NC. Abdominal: Soft, nontender, nondistended. Bowel sounds present. Neuro: A&O x3. No focal neurological deficits. Results & Data Results & Data Vital Signs (Past 12 Hours) Vital Signs Temp Pulse Pulse Resp BP BP Pulse Ox 10/29/25 11:21 97.5 F L 63 18 129/69 98 10/29/25 07:32 97.3 F L 71 18 151/67 H 90 10/29/25 07:31 10/29/25 07:27 53 L O2 Del Method O2 Flow Rate 10/29/25 11:21 Room Air 10/29/25 07:32 Nasal Cannula 2 10/29/25 07:31 Nasal Cannula 2 10/29/25 07:27 Laboratory Results Reviewed CBC, BMP/chemistries, sputum culture, blood cultures PG Care Time/CCT Total # of Minutes Spent Total Time Spent with Patient: Total time spent is greater than 50% in coordination of care (as documented) at patient's floor/unit and/or counseling patient: Coding Level of Care Code 46486 SUB INP/OBS CARE 3/50MIN Diagnoses Pneumonia J18.9 Lung cancer metastatic to brain C34.90; C79.31 Acute pulmonary embolism I26.99 Small cell lung cancer in adult C34.90 Recurrent left pleural effusion J90 Chronic respiratory failure with hypoxia, on home O2 therapy J96.11; Z99.81
[2025-10-29 12:36] LABS: Appearance Pleural Fluid Clear; Color Pleural Fluid Pale Yellow; RBC Pleural Fluid Auto < 2000 /uL; Source Pleural Fluid Left Lung; WBC Pleural Fluid Auto 2004 /uL
[2025-10-29 13:18] LABS: Lymphocytes, Fluid 97 %; Mono,Macrophage,Mesothelial 3 %; Neutrophils, Fluid 0 %
[2025-10-29] MEDS: GADOBUTROL 30ML VIAL IV ONE (22:39)
--- NOTE | 2025-10-29 23:51 | Magnetic Resonance Report ---
Exam(s): MRI HEAD W/WO Contrast IV Amt: 4.6ml gadavist injected EXAM: MR Head Without and With Intravenous Contrast CLINICAL HISTORY: Reason for exam: known brain mets, starting anticoagulation for PE. OTHER: Other Notes: blood clots in lung, no head complaints diagnosed with small cell lung ca rule out mets to brain 4.6ml Gadavist injected via existing iv, no adverse events TECHNIQUE: Magnetic resonance images of the head/brain without and with intravenous contrast in multiple planes. CONTRAST: Patient received 4.6ml Gadavist injected of IV contrast COMPARISON: Head CT from 08/17/2025 FINDINGS: Brain: Trace amount of periventricular white matter T2 hyperintensity consistent with chronic small vessel disease and/or senescent changes. No areas of diffusion restriction seen to indicate acute stroke. No hemorrhage. No areas of abnormal contrast enhancement are seen involving the brain. Ventricles: Unremarkable. No ventriculomegaly. Bones/joints: Unremarkable. No acute fracture. Sinuses: Unremarkable as visualized. No acute sinusitis. Mastoid air cells: Unremarkable as visualized. No mastoid effusion. Orbits: Unremarkable as visualized. IMPRESSION: 1. No areas of abnormal contrast enhancement are seen involving the brain. 2. Trace amount of periventricular white matter T2 hyperintensity consistent with chronic small vessel disease and/or senescent changes. No areas of diffusion restriction seen to indicate acute stroke. No acute intracranial process is identified. Electronically signed by: Baldev Paul MD 10/29/25 23:50 PM
[2025-10-30 07:52] LABS: Hematocrit (blood only) 26.3 % (37.0-47.0); Hemoglobin 8.5 g/dL (12.0-16.0); Mean Corpuscular Hemoglobin 31.6 pg (25.0-34.0); Mean Corpuscular Volume 97.8 fL (80.0-100.0); Platelet Count 270 K/uL (130-400); RDW Standard Deviation 55.9 fL (36.4-46.3); Red Blood Count 2.69 M/uL (4.20-5.40); White Blood Count 5.96 K/ul (4.8-10.8)
[2025-10-30 08:17] LABS: ANTI-Xa, UFH(UnfractionatedHep 0.31 IU/ml (0.3-0.7)
--- NOTE | 2025-10-30 09:45 | Pulmonology Progress Note ---
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 The patient presented with worsening shortness of breath. Found to have pneumonia, small PE on the right and increasing size of her left lower effusion. Pulmonary was consulted for further recommendations. CT of the chest was reviewed independently by myself. There is a small PE in the right lower lobe. Nodular infiltrates appreciated in the right lower lobe. Extensive emphysema. Mets appreciated. Increasing size of left pleural effusion. Thoracentesis was performed at bedside 10/29/2025. 400 cc of yellow hazy fluid was removed. 97% lymphocytes. Transudative. Negative Gram stain. 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 She recommended MRI of the brain which was obtained. Did not show any acute abnormalities. Patient would likely need lifelong anticoagulation given her underlying malignancy. Would recommend oncology input prior to transitioning to Eliquis. Patient has been started on antibiotics, has some phlegm production. Procalcitonin is mildly elevated. Recommend obtaining sputum culture and treating to cover for CAP for 5 days. I discussed the option of PleurX catheter insertion versus thoracentesis during her hospital stay. 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 Lopez in the outpatient setting for possible PleurX in the future. Recommend palliative care consultation. Thank you for this consultation. Pulmonary will sign off. Please call directly with any questions. Admission and Anticipated Discharge Date Admission Date: October 28, 2025 Subjective Patient is feeling well this morning. Denies any dyspnea. Denies chest pain. No fevers or chills overnight. No headache. Review of Systems Review of Systems: A 12 point review of systems was obtained in detail. Negative except as noted in HPI. Physical Exam Physical Exam: Physical examination: General: Elderly female, thin, appears comfortable sitting at edge of bed, not in distress HEENT: Normocephalic, atraumatic. Extraocular movements intact. Sclera are nonicteric. Skin: Warm and dry. No rashes appreciated. No jaundice appreciated. Cardiovascular: Heart is a regular rate and rhythm, no murmurs appreciated on my exam. No significant lower extremity edema. Lungs: Diminished bilaterally. On nasal cannula. No wheezing. Musculoskeletal: Decreased muscle mass. No gross joint deformity abnormalities. No effusions appreciated. Neurologic: Awake and alert, oriented. CN II through XII are grossly intact. Speech is fluent. Nonfocal exam. Psychiatric: Appropriate cooperative during my exam. Results & Data Results & Data Vital Signs (Past 12 Hours) Vital Signs Temp Pulse Pulse Resp BP Pulse Ox O2 Del Method 10/30/25 08:06 36.4 C L 79 16 110/64 93 Nasal Cannula 10/30/25 04:42 36.5 C 68 20 129/71 99 Nasal Cannula 10/30/25 01:00 36.5 C 73 20 138/70 98 Nasal Cannula 10/29/25 23:37 36.2 C L 89 14 163/67 H 96 Nasal Cannula 10/29/25 21:46 69 O2 Flow Rate 10/30/25 08:06 3 10/30/25 04:42 2 10/30/25 01:00 2 10/29/25 23:37 3 10/29/25 21:46 PG Care Time/CCT Total # of Minutes Spent Total Time Spent with Patient: Total time spent is greater than 50% in coordination of care (as documented) at patient's floor/unit and/or counseling patient: Coding [place] [address] SUB INP/OBS CARE 2/35MIN Patient Type Established History Expanded Problem Focused Exam Expanded Problem Focused Medical Decision Making Moderate Complexity Diagnoses Malignant pleural effusion J91.0 Pneumonia J18.9 Acute pulmonary embolism I26.99 Chronic respiratory failure with hypoxia, on home O2 therapy J96.11; Z99.81 Small cell lung cancer in adult C34.90
--- NOTE | 2025-10-30 12:41 | Hospitalist Progress Note ---
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 She presented with 3 weeks of worsening shortness of breath on exertion and productive cough with yellow sputum production. Workup in the ED revealed right lower lobe pneumonia and very small right lower lobe pulmonary embolism. She was admitted for management of such. #Right lower lobe pneumonia - identified on CXR and chest CTA. 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 Mclean in [facility] - Thoracentesis performed by pulmonology 10/29 with 400 cc of fluid removed - Discussed a palliative care consult with the patient, she declined at this time #COPDon chronic 2 L NC at baseline, continue home inhalers #Hypertensioncontinue amlodipine #Hyperlipidemiacontinue statin #Mental healthcontinue Zoloft #Anemiaof chronic disease with metastatic cancer. Hemoglobin stable on arrival, continue to monitor VTE PPx: Heparin Dispo: Continued inpatient stay. Potential discharge home in next 24-48 hours Admission and Anticipated Discharge Date Admission Date: October 28, 2025 Subjective Patient seen and evaluated at bedside. She reports that her shortness of breath feels slightly worse today, but states she is attributing this to the change in weather. She continues to have a productive cough with yellow/green sputum production. She has a strong appetite and is looking forward to lunch. No additional complaints or concerns at this time. Telemetry reviewed: NSR in 60s. Physical Exam Physical Exam: General: No acute distress, nondiaphoretic. Chronically ill-appearing, very frail elderly female. Skin: Warm, dry. No rashes or peripheral edema noted. Cardiac: Regular rate and rhythm without murmurs gallops or rubs. Pulm: Diminished in bases bilaterally but otherwise clear to auscultation without significant wheezes, rales or rhonchi. Normal respiratory effort. 96% on 2 L NC. Abdominal: Soft, nontender, nondistended. Bowel sounds present. Neuro: A&O x3. No focal neurological deficits. Results & Data Results & Data Vital Signs (Past 12 Hours) Vital Signs Temp Pulse Pulse Resp BP Pulse Ox O2 Del Method 10/30/25 11:03 98.4 F 69 16 123/65 96 Nasal Cannula 10/30/25 08:15 Nasal Cannula 10/30/25 08:06 97.5 F L 79 16 110/64 93 Nasal Cannula 10/30/25 08:00 58 L 10/30/25 04:42 97.7 F 68 20 129/71 99 Nasal Cannula 10/30/25 01:00 97.7 F 73 20 138/70 98 Nasal Cannula O2 Flow Rate 10/30/25 11:03 2 10/30/25 08:15 2 10/30/25 08:06 3 10/30/25 08:00 10/30/25 04:42 2 10/30/25 01:00 2 Laboratory Results Reviewed CBC PG Care Time/CCT Total # of Minutes Spent Total Time Spent with Patient: Total time spent is greater than 50% in coordination of care (as documented) at patient's floor/unit and/or counseling patient: Coding Level of Care Code 30166 SUB INP/OBS CARE 2/35MIN Diagnoses Pneumonia J18.9 Lung cancer metastatic to brain C34.90; C79.31 Acute pulmonary embolism I26.99 Small cell lung cancer in adult C34.90 Recurrent left pleural effusion J90 Chronic respiratory failure with hypoxia, on home O2 therapy J96.11; Z99.81"
[2025-10-31 06:57] LABS: Hematocrit (blood only) 28.0 % (37.0-47.0); Hemoglobin 9.0 g/dL (12.0-16.0); Mean Corpuscular Hemoglobin 32.5 pg (25.0-34.0); Mean Corpuscular Volume 101.1 fL (80.0-100.0); Platelet Count 299 K/uL (130-400); RDW Standard Deviation 58.9 fL (36.4-46.3); Red Blood Count 2.77 M/uL (4.20-5.40); White Blood Count 5.79 K/ul (4.8-10.8)
[2025-10-31 07:18] LABS: ANTI-Xa, UFH(UnfractionatedHep 0.33 IU/ml (0.3-0.7)
[2025-10-31] MEDS: APIXABAN 5 MG TABLET PO SCH (09:08)
--- NOTE | 2025-10-31 09:35 | Hospitalist Progress Note ---
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 She presented with 3 weeks of worsening shortness of breath on exertion and productive cough with yellow sputum production. Workup in the ED revealed right lower lobe pneumonia and very small right lower lobe pulmonary embolism. She was admitted for management of such. #Right lower lobe pneumonia - identified on CXR and chest CTA. Procal was mildly elevated at 0.51 - Initially treated with IV cefepime and doxycycline. Now transitioned to Augmentin PO BID and continues on doxy BID. Recommend 5 day total treatment course for CAP - Incentive Spirometer, Mucinex BID, Duonebs PRN - Continue home inhalers - Sputum culture with moderate normal may - Pulmonology consulted, now signed off #Acute PE - identified on chest CTA. 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 Now transitioned to Eliquis 10 mg BID x 7 days, then 5 mg BID ongoing. Will likely require lifelong anticoagulation given her underlying malignancy. 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 Mclean in [facility] - Thoracentesis performed by pulmonology 10/29 with 400 cc of fluid removed - Discussed a palliative care consult with the patient, she declined at this time #COPDon chronic 2 L NC at baseline, continue home inhalers #Hypertensioncontinue amlodipine #Hyperlipidemiacontinue statin #Mental healthcontinue Zoloft #Anemiaof chronic disease with metastatic cancer. Hemoglobin stable on arrival, continue to monitor VTE PPx: Eliquis Dispo: Anticipate discharge home tomorrow 11/01 if no events overnight & remains stable with transitioning to oral regimen Discontinued heparin, started Eliquis Discontinued cefepime, started Augmentin Messaged oncologist Admission and Anticipated Discharge Date Admission Date: October 28, 2025 Subjective Patient seen and evaluated at bedside. She reports her shortness of breath is improved today. She continues to have a productive cough. We discussed changing her IV Cefepime to oral Augmentin, as well as discontinuing her heparin drip and starting oral Eliquis. We discussed discharging today vs monitoring her overnight to ensure she remains stable/continues to improve with these changes, and if no events overnight, can be discharged home tomorrow. She is agreeable to the plan of monitoring overnight. No additional complaints or concerns at this time. Telemetry reviewed: SB/NSR 50-60s. Physical Exam Physical Exam: General: No acute distress, nondiaphoretic. Chronically ill-appearing, very frail elderly female. Skin: Warm, dry. No rashes or peripheral edema noted. Cardiac: Regular rate and rhythm without murmurs gallops or rubs. Pulm: Diminished in bases bilaterally but otherwise clear to auscultation without significant wheezes, rales or rhonchi. Normal respiratory effort. 97% on 2 L NC. Abdominal: Soft, nontender, nondistended. Bowel sounds present. Neuro: A&O x3. No focal neurological deficits. Results & Data Results & Data Vital Signs (Past 12 Hours) Vital Signs Temp Pulse Pulse Resp BP Pulse Ox O2 Del Method 10/31/25 07:31 97.5 F L 64 18 114/70 97 Room Air 10/31/25 03:49 97.7 F 66 18 141/66 H 92 Nasal Cannula 10/30/25 23:01 97.5 F L 70 16 156/63 H 91 Nasal Cannula 10/30/25 21:53 67 O2 Flow Rate 10/31/25 07:31 10/31/25 03:49 3 10/30/25 23:01 3 10/30/25 21:53 Laboratory Results Reviewed CBC, coagulation studies PG Care Time/CCT Total # of Minutes Spent Total Time Spent with Patient: Total time spent is greater than 50% in coordination of care (as documented) at patient's floor/unit and/or counseling patient: Coding Level of Care Code 32966 SUB INP/OBS CARE 3/50MIN Diagnoses Pneumonia J18.9 Lung cancer metastatic to brain C34.90; C79.31 Acute pulmonary embolism I26.99 Small cell lung cancer in adult C34.90 Recurrent left pleural effusion J90 Chronic respiratory failure with hypoxia, on home O2 therapy J96.11; Z99.81"
[2025-10-31] MEDS: AMOXICILLIN/CLAVULANATE 500 MG TAB PO SCH (10:07)
[2025-11-01 04:14] VITALS: RESP 16
[2025-11-01 07:54] VITALS: BP 128/76; TEMP 97.9; O2SAT 97
[2025-11-01] MEDS: HEPARIN 100 UNIT/ML 5ML FLUSH FLUSH PRN (08:02)
[2025-11-01 08:06] LABS: Hematocrit (blood only) 28.5 % (37.0-47.0); Hemoglobin 9.2 g/dL (12.0-16.0); Mean Corpuscular Hemoglobin 32.4 pg (25.0-34.0); Mean Corpuscular Volume 100.4 fL (80.0-100.0); Platelet Count 315 K/uL (130-400); RDW Standard Deviation 59.5 fL (36.4-46.3); Red Blood Count 2.84 M/uL (4.20-5.40); White Blood Count 7.29 K/ul (4.8-10.8)
[2025-11-01 08:32] LABS: Anion Gap 6.0 (3-11); Blood Urea Nitrogen 24.0 mg/dl (6-23); Calcium 9.4 mg/dl (8.6-10.3); Carbon Dioxide 30.0 mmol/L (21-32); Chloride 102.0 mmol/L (98-107); Creatinine Clr Calc Pharmacy 32.8 ml/min; Glucose 101.0 mg/dl (70-99(Fasting)); Potassium 4.6 mmol/L (3.5-5.1); Sodium 138.0 mmol/L (136-145)
--- NOTE | 2025-11-01 09:54 | Discharge Summary ---
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 Workup in ED included a CXR and CTA which revealed RLL PNA w/ small RLL PE w/ a procal of 0.51. Pt was then admitted to the hospital for further evaluation and care. A sputum culture on 10/29 was with moderate may. While in the hospital, pt was initially treated with IV Cefepime and Doxycycline prior to being transitioned to PO Augmentin and Doxycycline. Pt to continue home inhalers as prescribed. Pt was provided rx of Augmentin and Doxycycline to complete a 5 days course of antibiotics. #Acute PE - While pt was in ED, an Acute PE was identified in the RLL on chest CTA on 10/28. Following admission to the hospital, a Venous Doppler study was preformed on 10/29 that was negative for DVTs bilaterally. During inpt stay, electrician maintenance discussed anticoagulation w/ pts oncologist who recommended a brain MRI prior to initiating long-acting anticoagulation. Brain MRI on 10/29 was without any acute abnormalities. Pt was initially treated with a Heparin drip prior to being transitioned to PO Eliquis. Pt given rx for Eliquis 10 mg BID x 7 days, then 5 mg BID ongoing. Pt will likely require lifelong anticoagulation given her underlying malignancy. Pt's oncologist was notified when pt initiated Eliquis therapy. #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 Mclean in [facility]. A Thoracentesis was performed on 10/29 w/ 400cc fluid being removed. Palliative Care was discussed with pt during inpatient stay and was declined. #COPD Continue 2 L NC, continue home inhalers #Hypertension continue amlodipine #Hyperlipidemia continue statin #Depression continue Zoloft #Anemia of chronic disease - H&H stable throughout admission. Dispo: Home, Self Care Notes For Next Care Provider Pt will likely require life long oral anticoagulation therapy Admission HPI Per Admitting Provider Rebecca is a pleasant 85-year-old woman with past medical history of small cell lung cancer with metastasis to brain, malignant pleural effusions, COPD on chronic 2 L nasal cannula, hypertension, hyperlipidemia. She presented from oncology with worsening shortness of breath. At the time of my exam, the patient was lying in bed in no acute distress. She states starting 3 weeks ago, she has been more short of breath with exertion. She also has had an increased productive cough with initially white and now yellow sputum production. She also reports feeling feverish/chilled and had diarrhea at the start of this, though this has not continued. She wears 2 L O2 continuously. Vitals on admission are stable. Labs on admission are significant for baseline anemia with Hgb 8.6, mild hyponatremia with sodium 135, mildly elevated BUN at 27, and mildly elevated procalcitonin at 0.51. No leukocytosis. Renal function WNL. Liver enzymes WNL. Troponin WNL at 6.9. CXR on admission reveals mild bibasilar opacities that may represent atelectasis versus pneumonitis, left greater than right pleural effusions similar to prior, pulmonary emphysema, and healing subacute nondisplaced left seventh rib fracture. Chest CTA revealed very small right lower lobe pulmonary artery filling defect consistent with a small embolus, interval decrease in the size of the right hepatic lobe mass and the left mediastinal mass which deforms the left atrium, persistent pathologically enlarged AP window and precarinal nodesthe precarinal node appears slightly larger on the prior study, multiple bilateral spiculated pulmonary nodules with a new 9 mm right middle lobe pulmonary nodule, increasing left pleural effusion, severe pulmonary emphysema, and interval development of multifocal nodular right lower lobe airspace opacity likely representing a p neumonia. We discussed code status, patient states that she has paperwork at home indicating a DNR/DNI status however she wishes to be a full code at this time. Discharge Plan Discharge Items Patient Disposition: Home - Self-Care Reason For Visit: MD, PNEUMONIA, DYSPNEA Discharge Diagnosis: Pneumonia Condition on Discharge: Good Activity: Resume your previous activity Non-emergency contact: Primary Care Provider Call non-emergency contact if: you have any medication questions, your symptoms worsen and your temperature is above 101.5 Follow-up/Referrals: Froy Renteria DO [Primary Care Provider] - 11/08/25 10:00 am () Diet: Heart Healthy Addtl Attending Provider Instructions: Hospital Course: You were admitted to the hospital for pneumonia. While you were in the ED, a Chest Xray and a Chest CT confirmed the presence of pneumonia in the right lower lobe. You were given IV abx and transitioned to oral Augmentin and Doxycycline. You additionally received an Incentive spirometer, mucinex, and duonebs throughout the duration of your inpatient stay. You will be discharged home and encouraged to complete your antibiotic course. While you were here, a Chest CT identified a pulmonary embolism. As a result, a venous doppler were performed and ruled-out the presence of any deep vein blood clots. At the request of your electrician maintenance a brain MRI was performed prior to starting Eliquis. The Brain MRI was without any acute abnormalities. You were then transitioned from IV Heparin to oral Eliquis. It is important that you continue to take Eliquis as prescribed. Discharge Plan: -Please continue Augmentin + Doxycycline until a total of 5 days of antibiotics are completed. -Please take Eliquis twice a day as prescribed. You should take 10mg of Eliquis in the AM and PM through 11/07 and then transition to 5mg in the AM and PM for the next three months -You should follow-up with your PCP within one week of discharge from the hospital Medications: Your medication list has been reviewed and reconciled upon discharge to ensure accuracy and continuity of care. An updated list of all your medications is included with your hospital discharge paperwork. Please review this list closely, and make note of any changes. We sent a new medication called Augmentin to your pharmacy. Take two times a day for the next 2 days. Start this tonight. This is an antibiotic to help with your pneumonia. We sent a new medication called Doxycycline to your pharmacy. Take two times a day for the next 2 days. Start this tonight This is an antibiotic to help with your pneumonia . We sent a new medication called Eliquis to your pharmacy. Take two times a day. Start this tonight. This is an anticoagulant to help with your pulmonary embolism. Take your medications as instructed; do not skip a dose of your medicines. Make sure all of your doctors know every medicine you are taking (including vlds-utx-rhnafiu medicines, vitamins, and supplements). Call your primary care provider before taking any new medicines (including over- the-counter medicines, vitamins, and supplements), because some of these may interact with your current medications, or may make your symptoms worse. Tell your primary care provider if you cannot afford your medications. Activity: You can do normal everyday activities as your body allows. Take rest breaks if you feel tired. Do not overexert. Stop activity if you have pain, shortness of breath or feel dizzy. Follow-up appointments: Make an appointment with your primary care physician within one week of discharge. A copy of this summary will be sent to them. Every time you see your primary care physician, or any other doctor, bring your medication list, and a list of questions. CONTACT YOUR PRIMARY CARE PROVIDER if you experience any of the following: Shortness of breath or difficulty breathing Fevers or chills Feeling tired with normal activity or experiencing dizziness or fainting Difficulty following your treatment plan, or difficulty taking medications CALL 911 OR GO TO THE EMERGENCY DEPARTMENT if you experience any of the following: Severe abdominal pain or nausea/vomiting Severe chest pain, or chest pain that radiates (moves) to your jaw or arm Sudden, severe shortness of breath or difficulty breathing Thank you for allowing us to participate in your care. Pending Studies at Discharge: No Stand-Alone Forms: [facility], Smoking Cessation Medications and DC Order Prescriptions: New amoxicillin-pot clavulanate [Augmentin] 500-125 mg tablet 1 tab PO BID Qty: 5 0RF doxycycline hyclate 100 mg capsule 100 mg PO BID Qty: 5 0RF Eliquis 5 mg (74 tabs) tablets,dose pack 5 mg PO Q12H Qty: 74 0RF Rx Instructions: 10mg PO BID for 7 days then 5mg PO BID for 3 mos Continued albuterol sulfate 2.5 mg /3 mL (0.083 %) solution for nebulization 2.5 mg inhalation Q4H PRN (Reason: sob) triamcinolone acetonide 0.5 % cream 1 applic topical BID PRN (Reason: as directed) ondansetron HCl 8 mg tablet 8 mg PO Q8H PRN (Reason: N/V) prochlorperazine maleate [Compazine] 10 mg tablet 10 mg PO Q6H PRN (Reason: Nausea And Vomiting) Trelegy Ellipta 200-62.5-25 mcg blister with device 1 inh inhalation QAM Qty: 60 5RF multivitamin [One-A-Day Essential] tablet 1 tab PO QAM (DME) nebulizer accessories Kit See Rx Instructions .Route Qty: 1 0RF Rx Instructions: As directed (DME) Oxygen Home Liters Per Minute See Rx Instructions .ROUTE .MEDSUPPLY Qty: 3 0RF Rx Instructions: 3 L/min via nasal cannula at all times. Assess for portability. Length of need 99 years. coenzyme Q10 200 mg capsule 200 mg PO DAILY Qty: 90 3RF calcium carbonate-vitamin D3 [Calcium 600 with Vitamin D3] 600 mg-12.5 mcg (500 unit) capsule 2 cap PO DAILY sertraline [Zoloft] 25 mg tablet 50 mg PO QAM meclizine 12.5 mg tablet 12.5 mg PO TID PRN (Reason: dizziness) Qty: 15 0RF simvastatin 20 mg tablet 20 mg PO HS Qty: 90 3RF (DME) Portable Oxygen Misc See Rx Instructions .Route Qty: 1 0RF Rx Instructions: Portable oxygen at 3lpm via nc all the time with POC JESS-99 cyclobenzaprine 5 mg tablet 5 mg PO TID PRN (Reason: muscle spasm) Qty: 30 0RF betamethasone dipropionate 0.05 % cream 1 applic topical BID PRN (Reason: skin irritation) Qty: 15 1RF albuterol sulfate 90 mcg/actuation HFA aerosol inhaler 2 puff INHALATION QID PRN (Reason: Shortness Of Breath Or Wheezing) Qty: 8.5 3RF amlodipine 2.5 mg tablet 2.5 mg PO QAM Metamucil 3.4 gram/5.4 gram Powder 1 tbsp PO DAILY Rx Instructions: mix into at least 8 oz of water or juice before administering famotidine 40 mg tablet 40 mg PO QAM tramadol 50 mg tablet 50 - 100 mg PO QID PRN (Reason: pain) Rx Instructions: 1-2 tabs orally four times daily PRN magnesium oxide 400 mg magnesium tablet 400 mg PO DAILY Qty: 30 5RF diphenoxylate-atropine 2.5-0.025 mg tablet 1 tab PO QID PRN (Reason: Diarrhea) Discharge Orders: Discharge Order (Routine); Ordered 11/01/25 Ordered By: Maritza Mcgrath/Other Patient Handouts: Amoxicillin/Clavulanate Oral Tablet Admission Data Admit Date/Time: 10/28/25 16:52 Attending Provider: Bandar Aaron Admit Provider: Colby Mora Primary Care Provider: Froy Renteria Other Providers: Colby Mora; Libertad Bowen Other Interventions: Discharge Summary Assessment (RN) Last Done: 11/01/25 10:29 Hospital Stay Data Consultations 10/28/25 15:57 ED Decision to Admit Stat 10/28/25 19:33 Consult Pulmonology Routine Diagnostic Imagining Performed Chest X-Ray 10/28/25 14:02 XR chest 1V portable HISTORY: 85 years-old Female dyspnea, cough acute cough and syncope COMPARISON: Chest x-ray 09/20/2025, PET/CT 09/15/2025 TECHNIQUE: AP view the chest FINDINGS: Cardiomediastinal and hilar silhouettes are within normal limits. Right IJ Psvepq-v-Qxgd catheter is unchanged. Pulmonary emphysema. Left greater than right layering pleural effusions are similar to prior. Mildly progressive bibasilar opacities. Healing subacute posterolateral left seventh rib fracture. Skeletal metastasis better seen on prior PET/CT. IMPRESSION: 1. Mild bibasilar opacities may represent atelectasis versus pneumonitis. 2. Left greater than right pleural effusions are similar to prior. 3. Pulmonary emphysema. 4. Healing subacute nondisplaced left seventh rib fracture. ACT 112: Negative or not required by law. The above report was generated using voice recognition software. It may contain grammatical, syntax or spelling errors. Electronically signed by: Jamey Gallardo M.D. 10/28/2025 2:50 PM Chest CTA 10/28/25 14:55 CT ANGIOGRAM OF THE CHEST CLINICAL HISTORY: Shortness of breath COMPARISON STUDY: August 12, 2025 TECHNIQUE: Following the IV administration of 115 cc of Optiray 320, CT angiogram of the chest was performed from the upper abdomen to the thoracic inlet utilizing the pulmonary embolus protocol. Images are reviewed in the axial, sagittal, and coronal planes. 3-D MIPS images are created and assessed. IV contrast was administered without complication. A dose lowering technique was utilized adhering to the principles of ALARA. CT DOSE: 458.59 mGy.cm FINDINGS: There is a 23 mm right lobe hepatic mass. This appears slightly smaller than on the prior study. No thyroid nodules are visualized. There is no evidence of thoracic aortic aneurysm or dissection. There is a tiny filling defects within the right lower lobe pulmonary artery branch. The findings are consistent with a small embolus. There is a persistent enlarged 17 x 10 mm AP window lymph node. There is a persistent enlarged 15 mm precarinal lymph node. There is a persistent mildly enlarged right hilar lymph node. There is an increasing small left pleural effusion. There is interval decrease in the size of the anterior pericardial nodules which currently measure 35 mm in maximal diameter as compared with 58 mm in diameter on the prior study. There are developing nodular airspace opacities within the right lower lobe, likely representing a pneumonia. There is underlying pulmonary emphysema. There is a stable 9 mm spiculated nodule within the right lower lobe. There is a new 9 mm right middle lobe pulmonary nodule. Persistent multiple left upper lobe irregular marginated pulmonary nodules including a 18 mm cavitary nodule. There is interval decrease in the size of the 24 mm left mediastinal mass which deforms the left atrium. There is underlying moderately severe pulmonary emphysema IMPRESSION: 1. Very small right lower lobe pulmonary artery filling defect consistent with a small embolus 2. Interval decrease in the size of the right hepatic lobe mass, and left mediastinal mass which deforms the left atrium 3. Persistent pathologically enlarged AP window and precarinal nodes. The precarinal node appears slightly larger on the prior study 4. Multiple bilateral spiculated pulmonary nodules with a new 9 mm right middle lobe pulmonary nodule 5. Increasing left pleural effusion 6. Severe pulmonary emphysema 7. Interval development of multifocal nodular right lower lobe airspace opacities likely representing a pneumonia. ACT 112: Negative or not required by law. Electronically signed by: Luke Story M.D. 10/28/2025 3:38 PM Venous Doppler Study 10/29/25 00:00 EXAM: US venous doppler LE CLINICAL HISTORY: Acute PE. TECHNIQUE: Ultrasound examination of bilateral lower extremity veins was performed in real time and duplex. One or more of the following were performed: spectral analysis, resistive index, waveform analysis, and pulsed Doppler. COMPARISON: 02/05/2024 FINDINGS: Normal phasic, non-pulsatile, and spontaneous flow is noted in bilateral common femoral, superficial femoral, popliteal, posterior tibial, and peroneal veins. The visualized veins of both lower extremities demonstrate normal compressibility. No sonographic evidence of acute deep vein thrombosis (DVT) is detected in the visualized veins of both lower extremities. Compression and Augmentation: All evaluated veins compress fully with applied transducer pressure. Augmentation of venous flow is noted with distal compression. Additional Findings: No evidence of intraluminal thrombus. IMPRESSION: No sonographic evidence of acute DVT is detected in bilateral common femoral, superficial femoral, popliteal, posterior tibial, and peroneal veins at the time of examination. No interval changes. Disclaimer: DVT could be missed early in the disease when clot burden is minimal. For patients with moderate and high pretest probability of DVT and negative ultrasound, the [employer] clinical guidelines recommend testing with a D-dimer assay or repeat ultrasound in 5-7 days. If symptoms worsen, the Society of radiologists in ultrasound recommends repeating ultrasound even earlier. Electronically signed by Bernabe Gonzalez 10-29-2025 08:07 AM Chest X-Ray 10/29/25 11:06 XR chest 1V portable CLINICAL HISTORY: S/P Thoracentesis COMPARISON STUDY: Chest radiograph and chest CT October 28, 2025. FINDINGS: There is no pneumothorax following left thoracentesis. The left pleural effusion has significantly decreased in size. A right internal jugular Azefpv-n-Rdno remains in place. Cardiomediastinal silhouette is unremarkable. Left seventh rib fracture is incidentally noted. Right infrahilar opacities again noted. IMPRESSION: No pneumothorax following left thoracentesis. ACT 112: Negative or not required by law. Electronically signed by: Dimitry Rodriguez M.D. 10/29/2025 11:27 AM Brain MRI 10/29/25 12:17 Exam(s): MRI HEAD W/WO Contrast IV Amt: 4.6ml gadavist injected EXAM: MR Head Without and With Intravenous Contrast CLINICAL HISTORY: Reason for exam: known brain mets, starting anticoagulation for PE. OTHER: Other Notes: blood clots in lung, no head complaints diagnosed with small cell lung ca rule out mets to brain 4.6ml Gadavist injected via existing iv, no adverse events TECHNIQUE: Magnetic resonance images of the head/brain without and with intravenous contrast in multiple planes. CONTRAST: Patient received 4.6ml Gadavist injected of IV contrast COMPARISON: Head CT from 08/17/2025 FINDINGS: Brain: Trace amount of periventricular white matter T2 hyperintensity consistent with chronic small vessel disease and/or senescent changes. No areas of diffusion restriction seen to indicate acute stroke. No hemorrhage. No areas of abnormal contrast enhancement are seen involving the brain. Ventricles: Unremarkable. No ventriculomegaly. Bones/joints: Unremarkable. No acute fracture. Sinuses: Unremarkable as visualized. No acute sinusitis. Mastoid air cells: Unremarkable as visualized. No mastoid effusion. Orbits: Unremarkable as visualized. IMPRESSION: 1. No areas of abnormal contrast enhancement are seen involving the brain. 2. Trace amount of periventricular white matter T2 hyperintensity consistent with chronic small vessel disease and/or senescent changes. No areas of diffusion restriction seen to indicate acute stroke. No acute intracranial process is identified. Electronically signed by: Baldev Paul MD 10/29/25 23:50 PM 10/28/25 14:55 CT angio chest PE protocol Stat 10/29/25 US venous doppler LE BI Routine 10/29/25 09:32 US point of care ultrasound Urgent 10/29/25 12:17 MR brain wo/w con Routine Discharge Instructions Given to Patient (Per Discharging Provider) Hospital Course: You were admitted to the hospital for pneumonia. While you were in the ED, a Chest Xray and a Chest CT confirmed the presence of pneumonia in the right lower lobe. You were given IV abx and transitioned to oral Augmentin and Doxycycline. You additionally received an Incentive spirometer, mucinex, and duonebs throughout the duration of your inpatient stay. You will be discharged home and encouraged to complete your antibiotic course. While you were here, a Chest CT identified a pulmonary embolism. As a result, a venous doppler were performed and ruled-out the presence of any deep vein blood clots. At the request of your electrician maintenance a brain MRI was performed prior to starting Eliquis. The Brain MRI was without any acute abnormalities. You were then transitioned from IV Heparin to oral Eliquis. It is important that you continue to take Eliquis as prescribed. Discharge Plan: -Please continue Augmentin + Doxycycline until a total of 5 days of antibiotics are completed. -Please take Eliquis twice a day as prescribed. You should take 10mg of Eliquis in the AM and PM through 11/07 and then transition to 5mg in the AM and PM for the next three months -You should follow-up with your PCP within one week of discharge from the hospital Medications: Your medication list has been reviewed and reconciled upon discharge to ensure accuracy and continuity of care. An updated list of all your medications is included with your hospital discharge paperwork. Please review this list cl rubenely, and make note of any changes. We sent a new medication called Augmentin to your pharmacy. Take two times a day for the next 2 days. Start this tonight. This is an antibiotic to help with your pneumonia. We sent a new medication called Doxycycline to your pharmacy. Take two times a day for the next 2 days. Start this tonight This is an antibiotic to help with your pneumonia . We sent a new medication called Eliquis to your pharmacy. Take two times a day. Start this tonight. This is an anticoagulant to help with your pulmonary embolism. Take your medications as instructed; do not skip a dose of your medicines. Make sure all of your doctors know every medicine you are taking (including fdyd-oit-hdjakby medicines, vitamins, and supplements). Call your primary care provider before taking any new medicines (including over- the-counter medicines, vitamins, and supplements), because some of these may interact with your current medications, or may make your symptoms worse. Tell your primary care provider if you cannot afford your medications. Activity: You can do normal everyday activities as your body allows. Take rest breaks if you feel tired. Do not overexert. Stop activity if you have pain, shortness of breath or feel dizzy. Follow-up appointments: Make an appointment with your primary care physician within one week of discharge. A copy of this summary will be sent to them. Every time you see your primary care physician, or any other doctor, bring your medication list, and a list of questions. CONTACT YOUR PRIMARY CARE PROVIDER if you experience any of the following: Shortness of breath or difficulty breathing Fevers or chills Feeling tired with normal activity or experiencing dizziness or fainting Difficulty following your treatment plan, or difficulty taking medications CALL 911 OR GO TO THE EMERGENCY DEPARTMENT if you experience any of the following: Severe abdominal pain or nausea/vomiting Severe chest pain, or chest pain that radiates (moves) to your jaw or arm Sudden, severe shortness of breath or difficulty breathing Thank you for allowing us to participate in your care. Total Time Total Time Spent Total Time Spent (In Minutes): Time spent day of discharge 45 minutes including direct patient care, medication reconciliation, documentation, review of labs and images, and coordination of care. Coding Level of Care Code 80564 INP/OBS DISCH >30 MIN Diagnoses Pneumonia J18.9 Lung cancer metastatic to brain C34.90; C79.31 Acute pulmonary embolism I26.99 Small cell lung cancer in adult C34.90 Recurrent left pleural effusion J90 Chronic respiratory failure with hypoxia, on home O2 therapy J96.11; Z99.81"
[2025-11-01 10:17] VITALS: PULSE 67
== END 2025-11-01 11:34 | disposition home or self-care (01) | DRG 193 ==
LOC: ED 13:41 → SUATTDRO 16:52 → EDINP 16:52 → 2W 19:33